=== PATIENT | female | born 1995 | race Caucasian/White ===

== ENCOUNTER 2016-11-18 14:49 | Observation (INO) ==
[2016-11-18] MEDS ORDERED: 0.9 % Sodium Chloride 1,000 ML IVC ONE (16:01)
[2016-11-18] MEDS ORDERED: Ondansetron 4 MG/2 ML VIAL IVP ONE ×2 (16:01→17:04)
[2016-11-18] MEDS ORDERED: Ketorolac 15 MG/ML VIAL IVP ONE (16:04)
--- NOTE | 2016-11-18 16:25 | Emergency Department Note ---
Disposition Clinical Impression: Status post laparoscopic cholecystectomy Abdominal pain Qualifiers: Abdominal location: unspecified location Qualified Code(s): R10.9 - Unspecified abdominal pain Disposition: Admitted As Inpatient Condition: Good Time of Disposition: 20:08 Abdominal Pain HPI - General Chief Complaint: ED Abdominal Pain Stated Complaint: Pain after Gall Bladder surgery last Friday Time Seen by Provider: 11/18/16 15:38 Source: patient, family Mode of arrival: ambulatory Limitations: no limitations Nursing Notes Reviewed: Yes Vital Signs Reviewed: Yes - History of Present Illness HPI Narrative: 20-year-old female presents with abdominal pain. She is status post cholecystectomy November 12. Reports severe right upper quadrant abdominal pain worse yesterday while at rest. Radiation to the left upper quadrant and into the left shoulder. She is currently only taking Ibuprofen for pain as Oxycodone makes her very drowsy. Denies any trauma or injury to the area. Dr. Kim is her surgeon who she contacted this morning he was instructed to come to the ED for further evaluation. She reports nausea with episode of vomiting. Denies any chest pain, shortness breath, lightheadedness, fever, cough or recent illness. Denies any urinary complaints. Denies any diarrhea, bloody stool or blacked tarry stools. She has IUD that was recently placed. Pt Subjective Complaint: abdominal pain Pain Scale: 9 - Related Data Home Medications Medication Instructions Recorded Confirmed Citalopram Hydrobromide [Celexa] 40 mg PO HS 11/12/16 11/18/16 Levonorgestrel [Mirena] 1 each IY ONCE 11/12/16 11/18/16 Ibuprofen [Motrin] 600 mg PO Q8H PRN 11/18/16 11/18/16 Allergies Allergy/AdvReac Type Severity Reaction Status Date / Time No Known Allergies Allergy Verified 11/12/16 14:22 All systems ED: reviewed and negative except as stated. Constitutional: Denies: fever, chills Cardiovascular: Denies: chest pain Respiratory: Denies: cough, dyspnea Gastrointestinal: Reports: abdominal pain, nausea, vomiting. Denies: diarrhea Genitourinary: Denies: urgency, dysuria, abnormal menses Musculoskeletal: Denies: back pain, neck pain Integumentary: Denies: rash, abrasion, lesions Neurological: Denies: headache, weakness Abdominal Pain PMH - Past Medical History Medical history: Reports: no medical history Female Surgical History: Reports: cholecystectomy Psychiatric history: Reports: anxiety, depression - Social History Smoking status: Never smoker Alcohol use: Reports: none Drug use: Reports: none Physical Exam - General Limitations: no limitations General appearance: alert, in no apparent distress, obese - Head Head exam: atraumatic, normocephalic, normal inspection - Eye Eye exam: Present: normal appearance, PERRL, EOMI, scleral icterus (mild) - ENT ENT exam: normal exam, normal oropharynx, mucous membranes moist - Neck Neck exam: Present: normal inspection, full ROM, trachea midline - Chest Chest inspection: Present: normal inspection, symmetric chest wall rise - Respiratory Respiratory exam: Present: normal lung sounds bilaterally. Absent: respiratory distress, wheezes - Cardiovascular Cardiovascular exam: Present: regular rate, normal rhythm, normal heart sounds - Abdominal Exam Abdominal exam: Present: soft, tenderness, normal bowel sounds, Cantu's sign. Absent: distention, guarding, rebound, rigidity Abdominal tenderness: Present: RUQ, LUQ - Extremities Exam Extremities exam: Present: normal inspection, full ROM, normal capillary refill. Absent: tenderness, pedal edema, calf tenderness - Back Exam Back exam: Present: normal inspection, full ROM, CVA tenderness (R). Absent: tenderness, CVA tenderness (L) - Neurological Exam Neurological exam: Present: alert, oriented X3 - Psychiatric Psychiatric exam: Present: normal affect, normal mood - Skin Skin exam: Present: warm, dry, intact, pallor, other (mildly jaundiced) Course Course Narrative: 20-year-old female status post cholecystectomy presents with pain. Patients afebrile. She has some mild sclera icterus some jaundice. She is tender to the right upper quadrant. Concern for possible bile leak or stone or post- surgical pain. Will give her toradol for pain. Will check CBC, electrolytes, renal function, LFTs. If labs are abnormal will follow up with imaging. - Reevaluation(s) Reevaluation #1: Re-examination of the abdomen, remain soft but tenderness in the right upper quadrant. Not a surgical abdomen at this time. She has a mild leukocytosis 12.1. Bilirubin is elevated 4.8. Concern for possible bile leak or common bile duct stone. Right upper quadrant abdominal ultrasound ordered. Will order morphine for pain. Patient is in agreement with this plan. Anticipate admission and a consult to surgery. Time: 17:04 Reevaluation #2: US reveals fluid in the RUQ. Will consult surgery for admission. Patient's pain controlled at this time. Gallbladder Ultrasound 11/18/16 16:57 IMPRESSION: Status post cholecystectomy Fluid in the right upper quadrant is noted may represent a small amount of ascites, however a developing focal fluid collection should be considered as well. No stone. D/ / James De Guzman / James De Guzman Interpreting Provider: James De Guzman - Consultations Consultation #1: Spoke with Dr. Villanueva, concern for suspected bile leak given radiology report. Ok to accept to surgical services. No further orders at this time. Vital Signs Temperature 98.8 F 11/18/16 15:14 Pulse Rate 119 11/18/16 15:14 Respiratory Rate 16 11/18/16 15:14 Blood Pressure 123/82 11/18/16 15:14 O2 Sat by Pulse Oximetry 96 11/18/16 15:14 Temperature 100.5 F H 11/18/16 20:12 Pulse Rate 100 11/18/16 20:12 Respiratory Rate 14 11/18/16 20:12 Blood Pressure 125/72 11/18/16 20:12 O2 Sat by Pulse Oximetry 97 11/18/16 20:12 Oxygen Delivery Oxygen Delivery Room Air Abdominal Pain - Medical Records Medical records reviewed: Yes I reviewed the patient's medical records. - Lab Data Lab results reviewed: Yes I reviewed the patient's lab results. Result diagrams: 11/18/16 16:24 11/18/16 16:24 Lab Results 11/18/16 11/18/16 Range/Units 16:24 16:24 WBC 12.1 H (4.3-11.1) K/mcL RBC 4.51 (3.82-4.97) M/mcL Hgb 11.2 L (11.5-15.4) g/dL Hct 34.4 L (35.3-44.9) % MCV 76.3 L (83.0-100.0) fL MCH 24.8 L (28.0-33.3) pg MCHC 32.6 (31.6-35.5) g/dL RDW 15.5 H (11.5-14.5) % Plt Count 336 (140-400) K/mcL MPV 9.6 (9.4-12.4) fL Immature Gran % 1.6 (0-4) % Seg Neutrophils % 80.2 % Lymphocytes % 10.5 % Monocytes % 4.9 % Eosinophils % 2.6 % Basophils % 0.2 % Neutrophils # 9.7 H (1.6-8.9) K/mcL Lymphocytes # 1.3 (0.6-4.6) K/mcL Monocytes # 0.6 (0.0-1.3) K/mcL Eosinophils # 0.3 (0.0-0.6) K/mcL Basophils # 0.0 (0.0-0.2) K/mcL Sodium 137 (136-145) mEq/L Potassium 3.3 L (3.5-4.5) mEq/L Chloride 99 (98-109) mEq/L Carbon Dioxide 26 (19-29) mEq/L BUN 14 (7-20) mg/dL Creatinine 0.55 L (0.57-1.11) mg/dL Est GFR ( Amer) > 60 (> 60) Est GFR (Non-Af Amer) > 60 (> 60) BUN/Creatinine Ratio 25 (6-26) Glucose 103 H (70-99) mg/dL Calculated Osmolality 285 (280-300) Calcium 10.0 (8.6-10.8) mg/dL Total Bilirubin 4.8 H (0.2-1.2) mg/dL Direct Bilirubin 3.2 H (0.0-0.5) mg/dL Indirect Bilirubin 1.6 H (0.0-1.2) mg/dL AST 28 (5-34) Units/L ALT 22 (0-55) Units/L Alkaline Phosphatase 216 H (38-126) Units/L Serum Total Protein 7.9 (6.0-8.3) g/dL Albumin 2.8 L (3.5-5.0) g/dL Globulin 5.1 H (2.4-3.5) g/dL Albumin/Globulin Ratio 0.5 L (1.1-2.2) Lipase 24 (8-78) Units/L - Radiology Data Radiology results reviewed: Yes I reviewed the patient's radiology results. Gallbladder Ultrasound 11/18/16 16:57 IMPRESSION: Status post cholecystectomy Fluid in the right upper quadrant is noted may represent a small amount of ascites, however a developing focal fluid collection should be considered as well. No stone. D/ / James De Guzman / James De Guzman Interpreting Provider: James De Guzman Attestation Statement - Attestation Attestation: I examined this patient and my medical decision-making was reviewed with the Resident Physician. I agree with the documented findings, disposition and treatment plan as described except to the extent set forth below. Worsening pain 6 days status post cholecystectomy. Elevated total and direct bilirubin as well as alkaline phosphatase and white count. Fluid in the right upper quadrant. Clinical picture suspects bile leak. Nuclear medicine study ordered after consultation with surgery. They have accepted the patient for admission.
[2016-11-18 16:36] LABS: Basophils % 0.2 %; Eosinophils # 0.3 K/mcL (0.0-0.6); Eosinophils % 2.6 %; Hematocrit 34.4 % (35.3-44.9); Hemoglobin 11.2 g/dL (11.5-15.4); Immature Granulocytes % 1.6 % (0-4); Lymphocytes # 1.3 K/mcL (0.6-4.6); Lymphocytes % 10.5 %; Mean Corpuscular HGB Conc 32.6 g/dL (31.6-35.5); Mean Corpuscular Hemoglobin 24.8 pg (28.0-33.3); Mean Corpuscular Volume 76.3 fL (83.0-100.0); Mean Platelet Volume 9.6 fL (9.4-12.4); Monocytes # 0.6 K/mcL (0.0-1.3); Monocytes % 4.9 %; Neutrophils # 9.7 K/mcL (1.6-8.9); Platelet Count 336 K/mcL (140-400); Red Blood Count 4.51 M/mcL (3.82-4.97); Red Cell Distribution Width 15.5 % (11.5-14.5); Segmented Neutrophils % 80.2 %
[2016-11-18 16:52] LABS: Alanine Aminotransferase 22 Units/L (0-55); Albumin 2.8 g/dL (3.5-5.0); Albumin/Globulin Ratio 0.5 (1.1-2.2); Alkaline Phosphatase 216 Units/L (38-126); Aspartate Amino Transferase 28 Units/L (5-34); BUN/Creatinine Ratio 25 (6-26); Bilirubin,Direct 3.2 mg/dL (0.0-0.5); Bilirubin,Indirect 1.6 mg/dL (0.0-1.2); Blood Urea Nitrogen 14 mg/dL (7-20); Carbon Dioxide 26 mEq/L (19-29); Chloride 99 mEq/L (98-109); Globulin 5.1 g/dL (2.4-3.5); Glucose 103 mg/dL (70-99); Lipase 24 Units/L (8-78); Osmolality,Calculated 285 (280-300); Potassium 3.3 mEq/L (3.5-4.5); Sodium 137 mEq/L (136-145); Total Protein 7.9 g/dL (6.0-8.3); eGFR For African Americans > 60 (> 60); eGFR For Non-African Americans > 60 (> 60)
[2016-11-18 16:53] LABS: Bilirubin,Total 4.8 mg/dL (0.2-1.2)
[2016-11-18] MEDS ORDERED: *HR* Morphine 2 MG/ML SYRINGE IVP ONE (17:03)
[2016-11-18] MEDS ORDERED: Ondansetron 4 MG/2 ML VIAL IVP PRN (22:52)
[2016-11-18] MEDS: *HR* HYDROmorphone (PF) 1 MG/ML SYRINGE IVP PRN (23:34)
[2016-11-18] MEDS: cefOXitin 2,000 MG in D5% in Water (Mini-Bag+) 100 ML IVPB SCH (23:34)
[2016-11-18] MEDS: 0.9 % Sodium Chloride 1,000 ML IVC SCH (23:35)
[2016-11-19] MEDS: *HR* HYDROmorphone (PF) 1 MG/ML SYRINGE IVP PRN ×2 (04:36→11:24)
[2016-11-19 05:06] LABS: Bilirubin,Urine Moderate (Negative); Blood,Urine Moderate (Negative); Clarity,Urine Cloudy (Clear); Color,Urine Orange (Yellow); Glucose,Urine (UA) Normal (Normal); Ketones,Urine 40 mg/dL (Negative); Leukocyte Esterase,Urine Small (Negative); Nitrite,Urine Positive (Negative); Protein,Urine Trace mg/dL (Neg-Trace); Specific Gravity,Urine > 1.030 (1.010-1.025); Urobilinogen,Urine Normal (Normal)
[2016-11-19 05:09] LABS: Bacteria,Urine None Seen per hpf (None-Few); Hyaline Casts,Urine None Seen per lpf (None-Few); RBC,Urine 0-3 per hpf (0-3); Squamous Epithelial Cell,Urine Many per lpf (None-Few)
[2016-11-19 07:32] LABS: Basophils % 0.4 %; Eosinophils # 0.4 K/mcL (0.0-0.6); Eosinophils % 4.8 %; Hematocrit 29.7 % (35.3-44.9); Immature Granulocytes % 2.9 % (0-4); Lymphocytes # 1.4 K/mcL (0.6-4.6); Lymphocytes % 15.6 %; Mean Corpuscular HGB Conc 32.3 g/dL (31.6-35.5); Mean Corpuscular Hemoglobin 25.2 pg (28.0-33.3); Mean Platelet Volume 10.3 fL (9.4-12.4); Monocytes # 0.5 K/mcL (0.0-1.3); Monocytes % 5.9 %; Neutrophils # 6.4 K/mcL (1.6-8.9); Platelet Count 287 K/mcL (140-400); Red Blood Count 3.81 M/mcL (3.82-4.97); Red Cell Distribution Width 15.9 % (11.5-14.5); Segmented Neutrophils % 70.4 %
--- NOTE | 2016-11-19 07:33 | General Surg History&Physical ---
Date of Encounter: 11/19/16 Time of Encounter: 07:00 Assessment and Plan (1) Bile leak, postoperative Current Visit: Yes Status: Acute The assessment and plan as outlined above was discussed with the patient and/or family members who expressed understanding and agreement. All questions were answered. The patient has jaundice with a bilirubin of 4.8. Findings are consistent with postoperative bile leak from the cystic duct stump. Type recommended ERCP and discussed the case with her primary surgeon. History of Present Illness Chief complaint: Jaundice HPI: Ms. Castorena is a 20 year old female who underwent laparoscopic cholecystectomy last Friday. Starting on postoperative day one the patient had mild right upper quadrant pain. She also experienced nausea. The pain intensified in the last several days and she sought evaluation in the emergency department. She denies shakes chills or fever. During evaluation she underwent an ultrasound that demonstrated a mild fluid accumulation in the subhepatic space. Her liver function tests were elevated with a bilirubin of 4.8. A follow-up hepatobiliary scan was consistent with cystic duct stump leak. She also had leukocytosis. She now presents for evaluation and management of postoperative bile leak from laparoscopic cholecystectomy. Past Med Surg Social Fam HX - Past Medical History Medical history: no medical history Psychiatric history: anxiety, depression - Past Surgical History Surgical History: cholecystectomy - Social History Smoking Status: Never smoker Smokeless Tobacco Status: No Alcohol use: none Drug use: none - Family History Grandfather Living Status: Still Living Hx Family Cardiac Disorders: Yes Hx Family Endocrine Disorder: Yes Mother Living Status: Still Living Hx Family Endocrine Disorder: Yes (DM) Father Living Status: Still Living Hx Family Musculoskeletal Disorders: Yes (Thyroid) Medications and Allergies Citalopram Hydrobromide [Celexa] 40 mg PO HS 11/12/16 [History] Levonorgestrel [Mirena] 1 each IY ONCE 11/12/16 [History] Ibuprofen [Motrin] 600 mg PO Q8H PRN 11/18/16 [History] Allergies No Known Allergies Allergy (Verified 11/12/16 14:22) Review of Systems All systems PM: A 10-system review of systems was performed and is negative for pertinent findings except as documented above in the HPI. General Surgery Exam Initial Vital Signs Temp Pulse Resp BP Pulse Ox 98.8 F 119 16 123/82 96 11/18/16 15:14 11/18/16 15:14 11/18/16 15:14 11/18/16 15:14 11/18/16 15:14 - General physical appearance well developed, well nourished, moderate pain - ENT normal pinna, normal nares, normal mucosa, no hearing loss, no congestion - Neck no masses, no bruits, trachea midline, no lymphadectomy, no venous distension - Respiratory normal expansion, normal respiratory effort, clear to percussion, clear to auscultation - Cardiovascular Cardiovascular exam: Present: RRR, no murmurs/rubs/gallops - Abdomen Abdomen general surgery: Present: tender Abdominal Tenderness: Present: RUQ Hernia: Present: none - Incision Incision: Present: clean and dry - Neurologic Present: CN 2-12 grossly intact, normal coordination, normal sensation - Psychiatric Psychiatric general surgery: Present: appropriate, oriented to person, oriented to place, oriented to time, speech is normal, memory intact Results - Labs 11/18/16 16:24 11/18/16 16:24 Abnormal lab results WBC 12.1 K/mcL (4.3-11.1) H 11/18/16 16:24 Hgb 11.2 g/dL (11.5-15.4) L 11/18/16 16:24 Hct 34.4 % (35.3-44.9) L 11/18/16 16:24 MCV 76.3 fL (83.0-100.0) L 11/18/16 16:24 MCH 24.8 pg (28.0-33.3) L 11/18/16 16:24 RDW 15.5 % (11.5-14.5) H 11/18/16 16:24 Neutrophils # 9.7 K/mcL (1.6-8.9) H 11/18/16 16:24 Potassium 3.3 mEq/L (3.5-4.5) L 11/18/16 16:24 Creatinine 0.55 mg/dL (0.57-1.11) L 11/18/16 16:24 Glucose 103 mg/dL (70-99) H 11/18/16 16:24 POC Glucose 100 (58-89) H 11/19/16 05:33 Total Bilirubin 4.8 mg/dL (0.2-1.2) H 11/18/16 16:24 Direct Bilirubin 3.2 mg/dL (0.0-0.5) H 11/18/16 16:24 Indirect Bilirubin 1.6 mg/dL (0.0-1.2) H 11/18/16 16:24 Alkaline Phosphatase 216 Units/L (38-126) H 11/18/16 16:24 Albumin 2.8 g/dL (3.5-5.0) L 11/18/16 16:24 Globulin 5.1 g/dL (2.4-3.5) H 11/18/16 16:24 Albumin/Globulin Ratio 0.5 (1.1-2.2) L 11/18/16 16:24 Urine Color [place] (Yellow) A 11/19/16 04:57 Urine Clarity Cloudy (Clear) A 11/19/16 04:57 Ur Specific [place] > 1.030 (1.010-1.025) H 11/19/16 04:57 Urine Ketones 40 mg/dL (Negative) H 11/19/16 04:57 Urine Blood Moderate (Negative) H 11/19/16 04:57 Urine Nitrite Positive (Negative) A 11/19/16 04:57 Urine Bilirubin Moderate (Negative) H 11/19/16 04:57 Ur Leukocyte Esterase Small (Negative) H 11/19/16 04:57 Urine Microscopic WBC 5-15 per hpf (0-3) H 11/19/16 04:57 Ur Squamous Epith Cells Many per lpf (None-Few) H 11/19/16 04:57 Ur Culture Indicated? YES (NO) A 11/19/16 04:57 All other labs normal. - Imaging US - abdomen: image reviewed (I personally reviewed the ultrasound and this demonstrates mild fluid accumulation below the liver.) Additional studies: Hepatobiliary scan is consistent with postoperative bile leak likely from the cystic duct stump
[2016-11-19 07:35] LABS: Hemoglobin 9.6 g/dL (11.5-15.4)
[2016-11-19 07:41] LABS: Alanine Aminotransferase 16 Units/L (0-55); Albumin 2.3 g/dL (3.5-5.0); Albumin/Globulin Ratio 0.5 (1.1-2.2); Alkaline Phosphatase 181 Units/L (38-126); Aspartate Amino Transferase 21 Units/L (5-34); BUN/Creatinine Ratio 23 (6-26); Bilirubin,Direct 2.4 mg/dL (0.0-0.5); Bilirubin,Total 3.4 mg/dL (0.2-1.2); Blood Urea Nitrogen 13 mg/dL (7-20); Calcium 8.9 mg/dL (8.6-10.8); Carbon Dioxide 27 mEq/L (19-29); Chloride 105 mEq/L (98-109); Globulin 4.3 g/dL (2.4-3.5); Glucose 96 mg/dL (70-99); Osmolality,Calculated 288 (280-300); Potassium 3.6 mEq/L (3.5-4.5); Sodium 139 mEq/L (136-145); Total Protein 6.6 g/dL (6.0-8.3); eGFR For African Americans > 60 (> 60); eGFR For Non-African Americans > 60 (> 60)
[2016-11-19] MEDS: cefOXitin 2,000 MG in D5% in Water (Mini-Bag+) 100 ML IVPB SCH ×2 (08:03→16:49)
[2016-11-19] MEDS: 0.9 % Sodium Chloride 1,000 ML IVC SCH (11:26)
--- NOTE | 2016-11-19 11:58 | Gastroenterology Consult Note ---
<Gallo Hopson - Last Filed: 11/19/16 11:55> Date of Encounter: 11/19/16 Time of Encounter: 10:55 - Assessment and plan (1) Bile leak, postoperative Current Visit: Yes Status: Acute Assessment and plan: Pt is post-op day 7 s/p lap demian. RUQ US showed a mild fluid accumulation in the subhepatic space and HIDA was c/w bile leak from cystic duct remnant. Bilirubin elevated on admission to 4.8, this AM 3.4. Plan for ERCP today. Keep NPO. (2) Abdominal pain Current Visit: Yes Status: Acute Assessment and plan: Secondary to bile leak and s/p lap demian. Qualifiers: Abdominal location: right upper quadrant Qualified Code(s): R10.11 - Right upper quadrant pain - Time Spent With Patient Total time spent is greater than 50% in coordination of care (as documented) at patient's floor/unit and/or counseling patient: GI History of Present Illness - Data of Consult Patient: new to practice Consult date: 11/19/16 Requesting Physician: Oscar Villanueva MD - Consult Narrative Reason for consult: Bile leak History of present illness: Ms. Castorena is a 20 year old female with no significant past medical history who underwent lap demian on 11/12/[address] Kim. She began having RUQ pain and nausea on postop day one which worsened over the past several days. She presented to the ED for evaluation.RUQ US showed a mild fluid accumulation in the subhepatic space and HIDA was c/w bile leak from cystic duct remnant. Bilirubin elevated on admission to 4.8, this AM 3.4. Procedures: None NSAIDs: Ibuprofen Anticoagulation: None Past Med Surg Social Fam HX - Past Medical History Medical history: no medical history Psychiatric history: anxiety, depression - Past Surgical History Surgical History: cholecystectomy - Social History Smoking Status: Never smoker Smokeless Tobacco Status: No Alcohol use: none Drug use: none - Family History Grandfather Living Status: Still Living Hx Family Cardiac Disorders: Yes Hx Family Endocrine Disorder: Yes Mother Living Status: Still Living Hx Family Endocrine Disorder: Yes (DM) Father Living Status: Still Living Hx Family Musculoskeletal Disorders: Yes (Thyroid) - Gastrointestinal Gastrointestinal: Present: as per HPI - Constitutional Constitutional: as per HPI - EENT Eyes: as per HPI Ears: Present: as per HPI Nose, mouth and throat: Present: as per HPI - Cardiovascular Cardiovascular ROS: Present: as per HPI - Respiratory Respiratory IM: Present: as per HPI - Genitourinary Genitourinary: Absent: change in color, Urinary frequency - Neurological ROS Neurological GI: Present: as per HPI - Hematologic/Lymphatic Hematologic/Lymphatic pediatric: Present: as per HPI - Musculoskeletal Musculoskeletal ROS GI: Present: as per HPI - Integumentary Integumentary GI: Present: as per HPI - Psychiatric ROS Psychiatric GI: Present: as per HPI - Endocrine Endocrine IM: Present: as per HPI - Constitutional Vitals: Temp Pulse Resp BP Pulse Ox 98.6 F 113 15 109/68 95 11/19/16 07:28 11/19/16 07:28 11/19/16 07:28 11/19/16 07:28 11/19/16 07:28 General appearance: Present: cooperative, A&O X 3, no acute distress, answers questions appropriately - Head Head exam: Present: atraumatic, normocephalic - Eye Eye exam: Present: normal appearance, sclera anicteric - ENT ENT exam: Present: mucous membranes dry - Neck Neck exam general surgery: Present: normal inspection, trachea midline - Respiratory Respiratory exam: Present: CTAB. Absent: rales, rhonchi, wheezes - Cardiovascular Cardiovascular exam: Present: RRR, +S1, +S2 - GI/Abdominal GI/Abdominal exam: Present: soft, tenderness (RUQ ), no peritoneal signs. Absent: distended, firm, guarding Additional comments: Laparoscopic surgical scars - Rectal Rectal exam: Present: deferred - Extremities Exam Extremities exam: Present: warm - Neurological Exam Neurological exam: Present: no focal deficits - Psychiatric Psychiatric exam: Present: normal affect, normal mood - Skin Skin exam: Present: dry, intact, normal color, warm Results - Labs CBC & Chem 7: 11/19/16 06:04 11/19/16 06:04 Labs: Last Result Calcium 8.9 mg/dL (8.6-10.8) 11/19/16 06:04 Entire Visit Hgb 9.6 g/dL (11.5-15.4) L D 11/19/16 06:04 Hct 29.7 % (35.3-44.9) L 11/19/16 06:04 Total Bilirubin 3.4 mg/dL (0.2-1.2) H 11/19/16 06:04 AST 21 Units/L (5-34) 11/19/16 06:04 ALT 16 Units/L (0-55) 11/19/16 06:04 Lipase 24 Units/L (8-78) 11/18/16 16:24 Consult Discharge Plan - Plan Referrals: Tanya Oliver PROJECT MANAGEMENT [Primary Care Provider] - <Shakir Haas - Last Filed: 11/19/16 17:46> Date of Encounter: 11/19/16 Time of Encounter: 14:00 - Time Spent With Patient Total time spent is greater than 50% in coordination of care (as documented) at patient's floor/unit and/or counseling patient: GI History of Present Illness - Data of Consult Requesting Physician: Oscar Villanueva MD - Consult Narrative History of present illness: Ms. Castorena is a 20 year old female - Constitutional Vitals: Temp Pulse Resp BP Pulse Ox 99.2 F 108 14 124/82 95 11/19/16 17:05 11/19/16 17:05 11/19/16 17:05 11/19/16 17:05 11/19/16 17:05 Results - Labs CBC & Chem 7: 11/19/16 06:04 11/19/16 06:04 Labs: Last Result Calcium 8.9 mg/dL (8.6-10.8) 11/19/16 06:04 Entire Visit Hgb 9.6 g/dL (11.5-15.4) L D 11/19/16 06:04 Hct 29.7 % (35.3-44.9) L 11/19/16 06:04 Total Bilirubin 3.4 mg/dL (0.2-1.2) H 11/19/16 06:04 AST 21 Units/L (5-34) 11/19/16 06:04 ALT 16 Units/L (0-55) 11/19/16 06:04 Lipase 24 Units/L (8-78) 11/18/16 16:24 - Impressions Impressions Cath/Invasive Procedure 11/19/16 00:00 IMPRESSION: Fluoroscopy provided for ERCP procedure. Please see the intraoperative note for complete details. D/ / 11/19/2016 16:06:42 Emeterio Covarrubias MD / frank Interpreting Provider: Emeterio Covarrubias MD - Attending Attestation I examined this patient and my medical decision-making was reviewed with the MEDICAL TECHNICIANS/PA/Advanced Practice Nurse/Resident Physician. I agree with the documented findings, disposition and treatment plan as described except to the extent set forth below.
[2016-11-19] MEDS ORDERED: *HR* Midazolam HCl 5 MG/5 ML VIAL IVP ONE (13:36)
[2016-11-19] MEDS ORDERED: *HR* FentaNYL (PF) 100 MCG/2 ML VIAL ONE ×2 (13:36→15:09)
[2016-11-19] MEDS ORDERED: *HR* Propofol 200 MG/20 ML VIAL IVP ONE (13:37)
[2016-11-19] MEDS ORDERED: Lidocaine -MPF 2% 5 ML VIAL INFILT ONE (13:37)
[2016-11-19] MEDS ORDERED: *HR* Rocuronium Bromide 50 MG/5 ML VIAL IVC ONE (13:37)
[2016-11-19] MEDS ORDERED: Lidocaine -MPF 4% 5 ML AMPUL TP ONE (13:37)
[2016-11-19] MEDS ORDERED: *HR* Succinylcholine 200 MG/10 ML VIAL IVP ONE (13:37)
[2016-11-19] MEDS ORDERED: Indomethacin 50 MG SUPP.RECT RC ONE ×2 (14:11→14:53)
--- NOTE | 2016-11-19 14:13 | Anesthesia Evaluation PreOp ---
Date of Encounter: 11/19/16 Time of Encounter: 14:11 - Past History Planned Operation: ERCP Cardiac History: Denies any Significant Hx Pulmonary History: Denies Any Significant HX [employer] History: Denies Any Significant HX Other Medical History: Other Anesthesia History: No Prior Anesthetic Complications, Past Anesthesia Test: Negative (11/19/2016) Alcohol Use: none Drug use: none Medications and Allergies Citalopram Hydrobromide [Celexa] 40 mg PO HS 11/12/16 [History] Levonorgestrel [Mirena] 1 each IY ONCE 11/12/16 [History] Ibuprofen [Motrin] 600 mg PO Q8H PRN 11/18/16 [History] Allergies No Known Allergies Allergy (Verified 11/12/16 14:22) - Meds/Allergy Pre-op Review Medications Reviewed: Yes Allergies Reviewed: Yes Beta Blockers on Current Med List: No Anesthesia Results - Labs 11/19/16 06:04 11/19/16 06:04 Anesthesia Exam Vital Signs/O2 Sat, Most Current Temp Pulse Resp BP Pulse Ox 98.3 F 119 16 124/77 96 11/19/16 14:05 11/19/16 14:05 11/19/16 14:05 11/19/16 14:05 11/19/16 14:05 Height: 5'6'' Weight: 206 lbs NPO (# of Hours): 8 Pain Scale: 0 Pain Scale Used: Numeric (1 - 10) - HEENT Pupil (Motor): EOMI Mallampati: III Teeth: Normal Oral Opening: Greater than 3 - [employer] LOC: Oriented [employer] Motor: Normal RUE, Normal LUE, Normal RLE, Normal LLE, Normal Face [employer] Sensory: Normal: RUE, LUE, RLE, LLE, Face - Cardiac Rhythm: Regular Murmur: None - Pulmonary Breath Sounds: bilateral Clear Respiratory Effort: Symmetrical Anesthesia Assess/Plan ASA Score: 2 Modified Yoal Scale for Level of Consciousness: Cooperative, oriented, and tranquil Anesthetic Plan: General Monitoring Plan: Standard Monitors Recovery Plan: PACU
[2016-11-19] MEDS ORDERED: Ringers Solution, Lactated 1,000 ML IVC SCH (14:15)
[2016-11-19] MEDS ORDERED: *HR* Promethazine 25 MG/ML VIAL IVP PRN (15:17)
[2016-11-19] MEDS ORDERED: *HR* HYDROmorphone (PF) 1 MG/ML SYRINGE IVP PRN (15:17)
--- NOTE | 2016-11-19 16:06 | Anesthesia Evaluation Post Op ---
Date of Encounter: 11/19/16 Time of Encounter: 16:05 - Vital Signs Vital Signs: Vital Signs/O2 Sat, Most Current Temp Pulse Resp BP Pulse Ox 99.1 F 117 16 130/92 96 11/19/16 16:00 11/19/16 16:00 11/19/16 16:00 11/19/16 16:00 11/19/16 16:00 - Lungs Lungs: Clear Ascult./Percussion - Airway Airway: Non-obstructed - Cardiovascular Regular Rate - Mental Status Mental Status: Alert & Oriented, Answers Appropriately - Pain Pain Scale: 0 Pain Scale used: Numeric (1 - 10) - Nausea Vomiting Nausea Vomiting: Not Present - Hydration Hydration: Ice chips, Has not voided - Discharge PostOp Status: Transfer Patient to floor
[2016-11-20] MEDS: cefOXitin 2,000 MG in D5% in Water (Mini-Bag+) 100 ML IVPB SCH ×2 (00:29→08:34)
[2016-11-20] MEDS: 0.9 % Sodium Chloride 1,000 ML IVC SCH (02:16)
[2016-11-20] MEDS: *HR* HYDROmorphone (PF) 1 MG/ML SYRINGE IVP PRN (03:14)
[2016-11-20 10:47] VITALS: BP 122/83
--- NOTE | 2016-11-20 11:57 | Discharge Summary ---
Date of Encounter: 11/20/16 Time of Encounter: 11:55 - Discharge Diagnosis (1) Bile leak, postoperative Priority: Primary Status: Resolved - Discharge Medications Prescriptions: Ibuprofen [Motrin] 800 mg PO Q8H PRN #50 tablet PRN Reason: Pain Home Medications: Citalopram Hydrobromide [Celexa] 40 mg PO HS 11/12/16 [History] Levonorgestrel [Mirena] 1 each IY ONCE 11/12/16 [History] Ibuprofen [Motrin] 800 mg PO Q8H PRN #50 tablet 11/20/16 [Rx] Allergies/Adverse Reactions: Allergies No Known Allergies Allergy (Verified 11/12/16 14:22) General Surgery Exam Initial Vital Signs Temp Pulse Resp BP Pulse Ox 98.8 F 119 16 123/82 96 11/18/16 15:14 11/18/16 15:14 11/18/16 15:14 11/18/16 15:14 11/18/16 15:14 - General physical appearance well developed, well nourished, no distress - Eyes normal ocular movement - ENT normal mucosa, atraumatic, normocephalic - Neck trachea midline - Respiratory normal respiratory effort, clear to auscultation - Cardiovascular Cardiovascular exam: Present: RRR - Abdomen Abdomen general surgery: Present: bowel sounds present, soft, tender (Expected postoperative tenderness) - Incision Incision: Present: clean and dry, intact - Integumentary Integumentary general surgery: Present: warm and dry - Neurologic Present: CN 2-12 grossly intact - Musculoskeletal Present: normal gait, normal posture - Psychiatric Psychiatric general surgery: Present: appropriate, oriented to person, oriented to place, oriented to time, speech is normal, memory intact Date of admission: 11/18/16 18:45 Primary care physician: ROSANA Herrera Consults: 11/19/16 07:13 Consult to Gastroenterology [CONS] Stat Consulting Provider: [facility] [place] Reason for Consult: Bile leak, s/p Lap CCY Time Notified: 07:14 Call Completed: Yes [facility] Anticipated date of discharge: 11/20/16 - Patient Status Disposition: Home, Self-Care Condition: Good Functional capacity at discharge: independent ambulation Overall status at discharge: patient is progressing back to baseline - Discharge Instructions Follow Up With: Tanya Oliver CNP [Primary Care Provider] - Derek Kim MD [Partnered Physician] - 11/27/16 11:30 am (Surgery follow- up) Additional Instructions: #1 may shower, no tub bath for 2 weeks #2 wash incisions with soap and water and pat dry daily #3 no lifting, pushing, pulling more than 15 pounds for the next 1 weeks #4 no driving until off narcotics for 24 hours and able to safely react in the car #5 may climb stairs - Diet and Activity Activity: increase activity as tolerated Diet: advance to your usual diet - Hospital Course Hospital course: Ms. Castorena is a 20 year old female presented to the hospital with complaints of abdominal pain with associated nausea and vomiting. She is 1 week postop from a laparoscopic cholecystectomy with Dr. Kim. She had a HIDA scan completed which shows evidence of postoperative bile leak. Dr. Haas was consulted and took the patient for ERCP. She is status post sphincterotomy and stent placement. She states that her symptoms have resolved with these interventions. She is tolerating liquid diet without nausea or vomiting. She states that her abdominal pain has significantly improved. We will advance her to a regular diet. Her vital signs are stable and she is afebrile. She is voiding and ambulating without difficulty. We will begin discharge planning to home and plan for outpatient follow-up as previously scheduled so long as the patient tolerates a regular diet. - Time Spent with Patient Total time spent providing and/or coordinating discharge services: Less than 30 minutes Labs on day of discharge: Labs from last 24 hours 11/20/16 11/19/16 11/19/16 05:11 17:12 12:04 POC Glucose 121 H 148 H 97 H - Impressions ITS Impressions Cath/Invasive Procedure 11/19/16 00:00 IMPRESSION: Fluoroscopy provided for ERCP procedure. Please see the intraoperative note for complete details. D/ / 11/19/2016 16:06:42 Emeterio Covarrubias MD / [email or web address] Interpreting Provider: Emeterio Covarrubias MD - Attending Attestation I examined this patient and my medical decision-making was reviewed with the CLOTH MENDER/PA/Advanced Practice Nurse/Resident Physician. I agree with the documented findings, disposition and treatment plan as described except to the extent set forth below.
== END 2016-11-20 15:20 | disposition home or self-care (01) ==
LOC: EMEROO 14:49 → 3ANU 14:49
PROVIDERS: ADMIT Surgery; ATTEND Surgery

== ENCOUNTER 2016-11-21 12:18 | Inpatient (IN) ==
--- NOTE | 2016-11-21 13:55 | Emergency Department Note ---
Disposition Clinical Impression: Acute abdomen, Peritonitis Leukocytosis Qualifiers: Leukocytosis type: unspecified Qualified Code(s): D72.829 - Elevated white blood cell count, unspecified Disposition: Admitted As Inpatient Condition: Fair Referrals: Tanya Oliver CNP [Primary Care Provider] - Forms: Work/School Release, ED Satisfaction Letter Time of Disposition: 16:25 Abdominal Pain HPI - General Chief Complaint: ED Abdominal Pain Stated Complaint: abd pain Time Seen by Provider: 11/21/16 13:48 Source: patient Mode of arrival: private vehicle Limitations: no limitations Nursing Notes Reviewed: Yes Vital Signs Reviewed: Yes - History of Present Illness HPI Narrative: 20-year-old female with past medical history of laproscopic cholecystectomy, anxiety. Patient had laparoscopic cholecystectomy last Friday by Dr. Kim , and was released on the same day. She came to the hospital this past Friday for abdominal pain was admitted and was found to have a file leak. Patient was in the hospital for 3 days, and had an ERCP with stent placement done by Dr. Haas on 11/19/16. Patient felt better after the procedure, and was released from the hospital yesterday. She returned back to the emergency room for chief complaint of abdominal pain that started this morning. Her pain was sharp, stabbing 10/10 pain that she describes as diffuse, but primary located in her epigastric and right upper quadrant area. The pain radiates to her mid back. There are no alleviating factors. Movement makes the pain worse. She admits to nausea with 3 episodes of vomiting. She states that the first time she had vomiting, it was green in color, and her subsequent two episodes were clear in color. She admits to having some blood in her bowel movements. She denies fever, chills. She denies chest pain. Pt Subjective Complaint: abdominal pain Consistency: constant, Worsening Location: RUQ, epigastric Pain Severity: severe Pain Scale: 10 Quality: stabbing, sharp Radiation: back Improves with: nothing Worsens with: vomiting Context: recent surgery/procedure Treatments prior to arrival: none - Related Data Home Medications Medication Instructions Recorded Confirmed Citalopram Hydrobromide [Celexa] 40 mg PO HS 11/12/16 11/21/16 Levonorgestrel [Mirena] 1 each IY ONCE 11/12/16 11/21/16 Previous Rx's Medication Instructions Recorded Ibuprofen [Motrin] 800 mg PO Q8H PRN #50 tablet 11/20/16 Allergies Allergy/AdvReac Type Severity Reaction Status Date / Time No Known Allergies Allergy Verified 11/12/16 14:22 All systems ED: reviewed and negative except as stated. Abdominal Pain PMH - Past Medical History Medical history: Reports: no medical history Female Surgical History: Reports: cholecystectomy Psychiatric history: Reports: anxiety, depression - Social History Smoking status: Never smoker Alcohol use: Reports: none Drug use: Reports: none Physical Exam - General Limitations: no limitations General appearance: alert, in distress - Head Head exam: atraumatic, normocephalic - Eye Eye exam: Present: normal appearance - Neck Neck exam: Present: normal inspection, trachea midline - Chest Chest inspection: Present: normal inspection - Respiratory Respiratory exam: Present: normal lung sounds bilaterally - Cardiovascular Cardiovascular exam: Present: tachycardia - Abdominal Exam Abdominal exam: Present: soft, tenderness, guarding, diminished bowel sounds, other (patient has signs of peritoneal pain upon exam. ) Abdominal tenderness: Present: RUQ, epigastrium, severe - Extremities Exam Extremities exam: Present: normal inspection - Back Exam Back exam: Present: normal inspection - Neurological Exam Neurological exam: Present: alert, oriented X3 - Psychiatric Psychiatric exam: Present: agitated - Skin Skin exam: Present: warm, dry, intact Course Vital Signs Temperature 98.2 F 11/21/16 12:23 Pulse Rate 138 11/21/16 12:23 Respiratory Rate 18 11/21/16 12:23 Blood Pressure 116/74 11/21/16 12:23 O2 Sat by Pulse Oximetry 96 11/21/16 12:23 Temperature 99 F 11/21/16 15:20 Pulse Rate 125 11/21/16 15:20 Respiratory Rate 22 11/21/16 15:20 Blood Pressure 126/84 11/21/16 15:20 O2 Sat by Pulse Oximetry 98 11/21/16 15:20 Oxygen Delivery Oxygen Delivery Room Air Abdominal Pain - MDM Narrative Medical decision making narrative: CBC showed significant leukocytosis with WBC of 18, BMP unremarkable, lactate normal, LFTs normal, Amylase/lipase normal. Spoke with Dr. Kim, who recommended CT abdomen/pelvis with IV and oral contrast, however, patient could not tolerate oral contrast, so only IV contrast was used, Dr. Kim made aware. CT abdomen/pelvis showed significant amount of free fluid in the abdomen , pneumobilia, large amount of ascites. General surgery is aware, they are coming down to ED to do paracentesis. Patient will be admitted under general surgery service. - Medical Records Medical records reviewed: Yes I reviewed the patient's medical records. - Lab Data Lab results reviewed: Yes I reviewed the patient's lab results. Result diagrams: 11/21/16 14:20 11/21/16 14:20 Lab Results 11/21/16 11/21/16 11/21/16 Range/Units 14:20 14:20 14:20 WBC 18.6 H D (4.3-11.1) K/mcL RBC 4.37 (3.82-4.97) M/mcL Hgb 11.0 L (11.5-15.4) g/dL Hct 34.0 L (35.3-44.9) % MCV 77.8 L (83.0-100.0) fL MCH 25.2 L (28.0-33.3) pg MCHC 32.4 (31.6-35.5) g/dL RDW 15.9 H (11.5-14.5) % Plt Count 400 (140-400) K/mcL MPV 9.5 (9.4-12.4) fL Immature Gran % 1.1 (0-4) % Seg Neutrophils % 89.6 % Lymphocytes % 5.4 % Monocytes % 3.1 % Eosinophils % 0.7 % Basophils % 0.1 % Neutrophils # 16.7 H (1.6-8.9) K/mcL Lymphocytes # 1.0 (0.6-4.6) K/mcL Monocytes # 0.6 (0.0-1.3) K/mcL Eosinophils # 0.1 (0.0-0.6) K/mcL Basophils # 0.0 (0.0-0.2) K/mcL Sodium 138 (136-145) mEq/L Potassium 3.7 (3.5-4.5) mEq/L Chloride 105 (98-109) mEq/L Carbon Dioxide 21 (19-29) mEq/L BUN 14 (7-20) mg/dL Creatinine 0.60 (0.57-1.11) mg/dL Est GFR ( Amer) > 60 (> 60) Est GFR (Non-Af Amer) > 60 (> 60) BUN/Creatinine Ratio 23 (6-26) Glucose 121 H (70-99) mg/dL Calculated Osmolality 288 (280-300) Lactic Acid 1.0 (0.5-2.2) mmol/L Calcium 9.1 (8.6-10.8) mg/dL Total Bilirubin 2.3 H (0.2-1.2) mg/dL Direct Bilirubin 1.6 H (0.0-0.5) mg/dL Indirect Bilirubin 0.7 (0.0-1.2) mg/dL AST 14 (5-34) Units/L ALT 15 (0-55) Units/L Alkaline Phosphatase 191 H (38-126) Units/L Serum Total Protein 6.7 (6.0-8.3) g/dL Albumin 2.3 L (3.5-5.0) g/dL Globulin 4.4 H (2.4-3.5) g/dL Albumin/Globulin Ratio 0.5 L (1.1-2.2) Amylase 42 (25-125) Units/L Lipase 31 (8-78) Units/L 11/21/16 Range/Units 15:54 WBC (4.3-11.1) K/mcL RBC (3.82-4.97) M/mcL Hgb (11.5-15.4) g/dL Hct (35.3-44.9) % MCV (83.0-100.0) fL MCH (28.0-33.3) pg MCHC (31.6-35.5) g/dL RDW (11.5-14.5) % Plt Count (140-400) K/mcL MPV (9.4-12.4) fL Immature Gran % (0-4) % Seg Neutrophils % % Lymphocytes % % Monocytes % % Eosinophils % % Basophils % % Neutrophils # (1.6-8.9) K/mcL Lymphocytes # (0.6-4.6) K/mcL Monocytes # (0.0-1.3) K/mcL Eosinophils # (0.0-0.6) K/mcL Basophils # (0.0-0.2) K/mcL Sodium (136-145) mEq/L Potassium (3.5-4.5) mEq/L Chloride (98-109) mEq/L Carbon Dioxide (19-29) mEq/L BUN (7-20) mg/dL Creatinine (0.57-1.11) mg/dL Est GFR ( Amer) (> 60) Est GFR (Non-Af Amer) (> 60) BUN/Creatinine Ratio (6-26) Glucose (70-99) mg/dL Calculated Osmolality (280-300) Lactic Acid 0.9 (0.5-2.2) mmol/L Calcium (8.6-10.8) mg/dL Total Bilirubin (0.2-1.2) mg/dL Direct Bilirubin (0.0-0.5) mg/dL Indirect Bilirubin (0.0-1.2) mg/dL AST (5-34) Units/L ALT (0-55) Units/L Alkaline Phosphatase (38-126) Units/L Serum Total Protein (6.0-8.3) g/dL Albumin (3.5-5.0) g/dL Globulin (2.4-3.5) g/dL Albumin/Globulin Ratio (1.1-2.2) Amylase (25-125) Units/L Lipase (8-78) Units/L
[2016-11-21] MEDS ORDERED: *HR* Morphine 2 MG/ML SYRINGE IVP ONE (14:04)
[2016-11-21] MEDS ORDERED: 0.9 % Sodium Chloride 1,000 ML IVC ONE ×2 (14:04→15:21)
[2016-11-21] MEDS ORDERED: Ondansetron 4 MG/2 ML VIAL IVP ONE (14:04)
[2016-11-21 14:30] LABS: Basophils % 0.1 %; Eosinophils # 0.1 K/mcL (0.0-0.6); Eosinophils % 0.7 %; Immature Granulocytes % 1.1 % (0-4); Lymphocytes % 5.4 %; Mean Corpuscular HGB Conc 32.4 g/dL (31.6-35.5); Mean Corpuscular Hemoglobin 25.2 pg (28.0-33.3); Mean Corpuscular Volume 77.8 fL (83.0-100.0); Mean Platelet Volume 9.5 fL (9.4-12.4); Monocytes # 0.6 K/mcL (0.0-1.3); Monocytes % 3.1 %; Platelet Count 400 K/mcL (140-400); Red Blood Count 4.37 M/mcL (3.82-4.97); Red Cell Distribution Width 15.9 % (11.5-14.5); Segmented Neutrophils % 89.6 %
[2016-11-21 14:35] LABS: Neutrophils # 16.7 K/mcL (1.6-8.9)
[2016-11-21 14:50] LABS: Alanine Aminotransferase 15 Units/L (0-55); Albumin 2.3 g/dL (3.5-5.0); Albumin/Globulin Ratio 0.5 (1.1-2.2); Alkaline Phosphatase 191 Units/L (38-126); Amylase 42 Units/L (25-125); Aspartate Amino Transferase 14 Units/L (5-34); BUN/Creatinine Ratio 23 (6-26); Bilirubin,Direct 1.6 mg/dL (0.0-0.5); Bilirubin,Indirect 0.7 mg/dL (0.0-1.2); Bilirubin,Total 2.3 mg/dL (0.2-1.2); Blood Urea Nitrogen 14 mg/dL (7-20); Calcium 9.1 mg/dL (8.6-10.8); Carbon Dioxide 21 mEq/L (19-29); Chloride 105 mEq/L (98-109); Globulin 4.4 g/dL (2.4-3.5); Glucose 121 mg/dL (70-99); Lipase 31 Units/L (8-78); Osmolality,Calculated 288 (280-300); Potassium 3.7 mEq/L (3.5-4.5); Sodium 138 mEq/L (136-145); Total Protein 6.7 g/dL (6.0-8.3); eGFR For African Americans > 60 (> 60); eGFR For Non-African Americans > 60 (> 60)
[2016-11-21] MEDS ORDERED: *HR* HYDROmorphone (PF) 1 MG/ML SYRINGE IVP ONE ×2 (14:50→16:35)
[2016-11-21] MEDS ORDERED: *HR* HYDROmorphone (PF) 1 MG/ML SYRINGE ONE (14:51)
--- NOTE | 2016-11-21 15:16 | Emergency Department Note ---
Disposition Clinical Impression: Acute abdomen, Peritonitis Leukocytosis Qualifiers: Leukocytosis type: unspecified Qualified Code(s): D72.829 - Elevated white blood cell count, unspecified Disposition: Admitted As Inpatient Condition: Fair General Adult HPI - General Chief complaint: ED Abdominal Pain Stated complaint: abd pain Time Seen by Provider: 11/21/16 13:48 Source: patient Mode of arrival: private vehicle Limitations: no limitations - History of Present Illness Pain Scale: 10 - Related Data Home Medications Medication Instructions Recorded Confirmed Citalopram Hydrobromide [Celexa] 40 mg PO HS 11/12/16 11/21/16 Levonorgestrel [Mirena] 1 each IY ONCE 11/12/16 11/21/16 Previous Rx's Medication Instructions Recorded Ibuprofen [Motrin] 800 mg PO Q8H PRN #50 tablet 11/20/16 Allergies Allergy/AdvReac Type Severity Reaction Status Date / Time No Known Allergies Allergy Verified 11/12/16 14:22 Past Medical History - Past Medical History Medical history: Reports: no medical history Surgical history: Reports: cholecystectomy Psychiatric history: Reports: anxiety, depression - Social History Smoking Status: Never smoker Smokeless Tobacco Status: No Alcohol use: Reports: none Drug use: Reports: none Physical Exam - General Limitations: no limitations General appearance: alert, in distress Course Vital Signs Temperature 98.2 F 11/21/16 12:23 Pulse Rate 138 11/21/16 12:23 Respiratory Rate 18 11/21/16 12:23 Blood Pressure 116/74 11/21/16 12:23 O2 Sat by Pulse Oximetry 96 11/21/16 12:23 Temperature 98.3 F 11/21/16 19:41 Pulse Rate 126 11/21/16 19:41 Respiratory Rate 14 11/21/16 19:41 Blood Pressure 100/65 11/21/16 19:41 O2 Sat by Pulse Oximetry 95 11/21/16 19:41 Oxygen Delivery Oxygen Delivery Room Air Medical Decision Making - MDM Narrative Medical decision making narrative: I examined this patient and my medical decision-making was reviewed with the VEHICLE CONTROLS ENGINEER/PA/Advanced Practice Nurse/Resident Physician. I agree with the documented findings, disposition and treatment plan as described except to the extent set forth below. I did see and speak with and examine the patient and she does have generalized abdominal pain consistent with an acute abdomen. I did review the lab results. He did discuss the case in coronary care with the surgeon. CT scan is pending. Patient did receive 2 doses of intravenous pain medication. 1516 - Lab Data Result diagrams: 11/21/16 14:20 11/21/16 14:20 Lab Results 11/21/16 11/21/16 11/21/16 Range/Units 14:20 14:20 14:20 WBC 18.6 H D (4.3-11.1) K/mcL RBC 4.37 (3.82-4.97) M/mcL Hgb 11.0 L (11.5-15.4) g/dL Hct 34.0 L (35.3-44.9) % MCV 77.8 L (83.0-100.0) fL MCH 25.2 L (28.0-33.3) pg MCHC 32.4 (31.6-35.5) g/dL RDW 15.9 H (11.5-14.5) % Plt Count 400 (140-400) K/mcL MPV 9.5 (9.4-12.4) fL Immature Gran % 1.1 (0-4) % Seg Neutrophils % 89.6 % Lymphocytes % 5.4 % Monocytes % 3.1 % Eosinophils % 0.7 % Basophils % 0.1 % Neutrophils # 16.7 H (1.6-8.9) K/mcL Lymphocytes # 1.0 (0.6-4.6) K/mcL Monocytes # 0.6 (0.0-1.3) K/mcL Eosinophils # 0.1 (0.0-0.6) K/mcL Basophils # 0.0 (0.0-0.2) K/mcL Sodium 138 (136-145) mEq/L Potassium 3.7 (3.5-4.5) mEq/L Chloride 105 (98-109) mEq/L Carbon Dioxide 21 (19-29) mEq/L BUN 14 (7-20) mg/dL Creatinine 0.60 (0.57-1.11) mg/dL Est GFR ( Amer) > 60 (> 60) Est GFR (Non-Af Amer) > 60 (> 60) BUN/Creatinine Ratio 23 (6-26) Glucose 121 H (70-99) mg/dL Calculated Osmolality 288 (280-300) Lactic Acid 1.0 (0.5-2.2) mmol/L Calcium 9.1 (8.6-10.8) mg/dL Total Bilirubin 2.3 H (0.2-1.2) mg/dL Direct Bilirubin 1.6 H (0.0-0.5) mg/dL Indirect Bilirubin 0.7 (0.0-1.2) mg/dL AST 14 (5-34) Units/L ALT 15 (0-55) Units/L Alkaline Phosphatase 191 H (38-126) Units/L Serum Total Protein 6.7 (6.0-8.3) g/dL Albumin 2.3 L (3.5-5.0) g/dL Globulin 4.4 H (2.4-3.5) g/dL Albumin/Globulin Ratio 0.5 L (1.1-2.2) Amylase 42 (25-125) Units/L Lipase 31 (8-78) Units/L // Range/Units 15:54 WBC (4.3-11.1) K/mcL RBC (3.82-4.97) M/mcL Hgb (11.5-15.4) g/dL Hct (35.3-44.9) % MCV (83.0-100.0) fL MCH (28.0-33.3) pg MCHC (31.6-35.5) g/dL RDW (11.5-14.5) % Plt Count (140-400) K/mcL MPV (9.4-12.4) fL Immature Gran % (0-4) % Seg Neutrophils % % Lymphocytes % % Monocytes % % Eosinophils % % Basophils % % Neutrophils # (1.6-8.9) K/mcL Lymphocytes # (0.6-4.6) K/mcL Monocytes # (0.0-1.3) K/mcL Eosinophils # (0.0-0.6) K/mcL Basophils # (0.0-0.2) K/mcL Sodium (136-145) mEq/L Potassium (3.5-4.5) mEq/L Chloride (98-109) mEq/L Carbon Dioxide (19-29) mEq/L BUN (7-20) mg/dL Creatinine (0.57-1.11) mg/dL Est GFR ( Amer) (> 60) Est GFR (Non-Af Amer) (> 60) BUN/Creatinine Ratio (6-26) Glucose (70-99) mg/dL Calculated Osmolality (280-300) Lactic Acid 0.9 (0.5-2.2) mmol/L Calcium (8.6-10.8) mg/dL Total Bilirubin (0.2-1.2) mg/dL Direct Bilirubin (0.0-0.5) mg/dL Indirect Bilirubin (0.0-1.2) mg/dL AST (5-34) Units/L ALT (0-55) Units/L Alkaline Phosphatase (38-126) Units/L Serum Total Protein (6.0-8.3) g/dL Albumin (3.5-5.0) g/dL Globulin (2.4-3.5) g/dL Albumin/Globulin Ratio (1.1-2.2) Amylase (25-125) Units/L Lipase (8-78) Units/L
--- NOTE | 2016-11-21 15:43 | General Surg History&Physical ---
<Padmini Huynh - Last Filed: 11/21/16 15:39> Date of Encounter: 11/21/16 Time of Encounter: 15:15 Assessment and Plan (1) Bile peritonitis Current Visit: Yes Status: Acute The assessment and plan as outlined above was discussed with the patient and/or family members who expressed understanding and agreement. All questions were answered. NPO Paracentesis to be complete per Dr. Kim IV fluids IV antibiotics- Mefoxin Supportive care/pain control Serial abdominal exams IS every 1 hour while awake Repeat am labs (2) Bile leak, postoperative Current Visit: No Status: Acute The assessment and plan as outlined above was discussed with the patient and/or family members who expressed understanding and agreement. All questions were answered. (3) Status post laparoscopic cholecystectomy Current Visit: No Status: Acute The assessment and plan as outlined above was discussed with the patient and/or family members who expressed understanding and agreement. All questions were answered. (4) DVT prophylaxis Current Visit: Yes Status: Acute The assessment and plan as outlined above was discussed with the patient and/or family members who expressed understanding and agreement. All questions were answered. EPCDs to bilateral lower extremities for DVT prophylaxis Heparin 5,000 units SQ twice daily for DVT prophylaxis History of Present Illness Chief complaint: Abdominal pain with associated nausea/vomiting HPI: Ms. Castorena is a 20 year old female who is recently s/p cholecystectomy with Dr. Kim on 11/12/16. She experienced a post-operative bile leak and was admitted to the hospital earlier this week. She is s/p ERCP with sphincterotomy and stent placement with Dr. Haas on 11/19/16. She initially felt much better after stent placement. Her WBC count normalized and total bilirubin levels were trending toward normal. She was discharged to home on 11/20/16. She states that she was doing well when she went to bed last night and woke up suddenly at 0200 this morning. She states that her abdominal pain had returned and was more severe than she has experienced earlier this week. She states that her pain progressed and she was unable to get relief with medication. She experienced nausea and vomiting. Admits to bilious vomiting. Denies any hematemesis or coffee ground emesis. Denies any fevers. Admit to chills and feeling diaphoretic. Admits to difficulty taking a deep breath due to significant abdominal pain. Denies any chest pains. Denies any difficulty with urination. CT shows evidence of significant fluid within the intra-abdominal space. The patient will be admitted to the hospital for further treatment. Past Med Surg Social Fam HX - Past Medical History Source: patient Medical history: no medical history Psychiatric history: anxiety, depression - Past Surgical History Surgical History: cholecystectomy, other (ERCP 11/19/16) - Social History Smoking Status: Never smoker Smokeless Tobacco Status: No Alcohol use: none Drug use: none Current living situation: Home - Independent Activity Level: Independent ambulation - Family History Grandfather Living Status: Still Living Hx Family Cardiac Disorders: Yes Hx Family Endocrine Disorder: Yes Mother Living Status: Still Living Hx Family Endocrine Disorder: Yes (DM) Father Living Status: Still Living Medications and Allergies Citalopram Hydrobromide [Celexa] 40 mg PO HS 11/12/16 [History] Levonorgestrel [Mirena] 1 each IY ONCE 11/12/16 [History] Ibuprofen [Motrin] 800 mg PO Q8H PRN #50 tablet 11/20/16 [Rx] Allergies No Known Allergies Allergy (Verified 11/12/16 14:22) Review of Systems All systems PM: reviewed and no additional remarkable complaints except as stated (in the HPI) All systems PM: A 10-system review of systems was performed and is negative for pertinent findings except as documented above in the HPI. General Surgery Exam Initial Vital Signs Temp Pulse Resp BP Pulse Ox 98.2 F 138 18 116/74 96 11/21/16 12:23 11/21/16 12:23 11/21/16 12:23 11/21/16 12:23 11/21/16 12:23 - General physical appearance well developed, well nourished, severe distress, severe pain - Eyes PERRL, normal ocular movement - ENT normal mucosa, atraumatic, normocephalic - Neck trachea midline - Respiratory clear to auscultation, other (tachypnic, diminished bibasilar bases) - Cardiovascular Cardiovascular exam: Present: tachycardia - Abdomen Abdomen general surgery: Present: soft, distended, tender, peritoneal Abdominal Tenderness: Present: diffusely - Incision Incision: Present: clean and dry, intact - Integumentary Integumentary general surgery: Present: warm and dry - Neurologic Present: CN 2-12 grossly intact - Psychiatric Psychiatric general surgery: Present: A&Ox3 Results - Labs 11/21/16 14:20 11/21/16 14:20 Abnormal lab results WBC 18.6 K/mcL (4.3-11.1) H D 11/21/16 14:20 Hgb 11.0 g/dL (11.5-15.4) L 11/21/16 14:20 Hct 34.0 % (35.3-44.9) L 11/21/16 14:20 MCV 77.8 fL (83.0-100.0) L 11/21/16 14:20 MCH 25.2 pg (28.0-33.3) L 11/21/16 14:20 RDW 15.9 % (11.5-14.5) H 11/21/16 14:20 Neutrophils # 16.7 K/mcL (1.6-8.9) H 11/21/16 14:20 Glucose 121 mg/dL (70-99) H 11/21/16 14:20 Total Bilirubin 2.3 mg/dL (0.2-1.2) H 11/21/16 14:20 Direct Bilirubin 1.6 mg/dL (0.0-0.5) H 11/21/16 14:20 Alkaline Phosphatase 191 Units/L (38-126) H 11/21/16 14:20 Albumin 2.3 g/dL (3.5-5.0) L 11/21/16 14:20 Globulin 4.4 g/dL (2.4-3.5) H 11/21/16 14:20 Albumin/Globulin Ratio 0.5 (1.1-2.2) L 11/21/16 14:20 Diabetes panel 11/21/16 Range/Units 14:20 Sodium 138 (136-145) mEq/L Potassium 3.7 (3.5-4.5) mEq/L Chloride 105 (98-109) mEq/L Carbon Dioxide 21 (19-29) mEq/L BUN 14 (7-20) mg/dL Creatinine 0.60 (0.57-1.11) mg/dL Glucose 121 H (70-99) mg/dL Calcium 9.1 (8.6-10.8) mg/dL AST 14 (5-34) Units/L ALT 15 (0-55) Units/L Alkaline Phosphatase 191 H (38-126) Units/L Albumin 2.3 L (3.5-5.0) g/dL Calcium panel 11/21/16 Range/Units 14:20 Calcium 9.1 (8.6-10.8) mg/dL Albumin 2.3 L (3.5-5.0) g/dL Pituitary panel 11/21/16 Range/Units 14:20 Sodium 138 (136-145) mEq/L Potassium 3.7 (3.5-4.5) mEq/L Chloride 105 (98-109) mEq/L Carbon Dioxide 21 (19-29) mEq/L BUN 14 (7-20) mg/dL Creatinine 0.60 (0.57-1.11) mg/dL Glucose 121 H (70-99) mg/dL Calcium 9.1 (8.6-10.8) mg/dL Adrenal panel 11/21/16 Range/Units 14:20 Sodium 138 (136-145) mEq/L Potassium 3.7 (3.5-4.5) mEq/L Chloride 105 (98-109) mEq/L Carbon Dioxide 21 (19-29) mEq/L BUN 14 (7-20) mg/dL Creatinine 0.60 (0.57-1.11) mg/dL Glucose 121 H (70-99) mg/dL Calcium 9.1 (8.6-10.8) mg/dL Total Bilirubin 2.3 H (0.2-1.2) mg/dL AST 14 (5-34) Units/L ALT 15 (0-55) Units/L Alkaline Phosphatase 191 H (38-126) Units/L Albumin 2.3 L (3.5-5.0) g/dL All other labs normal. - Imaging CT scan - abdomen: image reviewed CT scan - pelvis: image reviewed - Attending Attestation I examined this patient and my medical decision-making was reviewed with the DEL[employer]ER [employer]/PA/Advanced Practice Nurse/Resident Physician. I agree with the documented findings, disposition and treatment plan as described except to the extent set forth below. <Derek Kim - Last Filed: 11/21/16 17:36> Date of Encounter: 11/21/16 History of Present Illness HPI: Ms. Castorena is a 20 year old female Review of Systems All systems PM: A 10-system review of systems was performed and is negative for pertinent findings except as documented above in the HPI. General Surgery Exam Initial Vital Signs Temp Pulse Resp BP Pulse Ox 98.2 F 138 18 116/74 96 11/21/16 12:23 11/21/16 12:23 11/21/16 12:23 11/21/16 12:23 11/21/16 12:23 Results - Labs 11/21/16 14:20 11/21/16 14:20 Abnormal lab results WBC 18.6 K/mcL (4.3-11.1) H D 11/21/16 14:20 Hgb 11.0 g/dL (11.5-15.4) L 11/21/16 14:20 Hct 34.0 % (35.3-44.9) L 11/21/16 14:20 MCV 77.8 fL (83.0-100.0) L 11/21/16 14:20 MCH 25.2 pg (28.0-33.3) L 11/21/16 14:20 RDW 15.9 % (11.5-14.5) H 11/21/16 14:20 Neutrophils # 16.7 K/mcL (1.6-8.9) H 11/21/16 14:20 Glucose 121 mg/dL (70-99) H 11/21/16 14:20 Total Bilirubin 2.3 mg/dL (0.2-1.2) H 11/21/16 14:20 Direct Bilirubin 1.6 mg/dL (0.0-0.5) H 11/21/16 14:20 Alkaline Phosphatase 191 Units/L (38-126) H 11/21/16 14:20 Albumin 2.3 g/dL (3.5-5.0) L 11/21/16 14:20 Globulin 4.4 g/dL (2.4-3.5) H 11/21/16 14:20 Albumin/Globulin Ratio 0.5 (1.1-2.2) L 11/21/16 14:20 All other labs normal. - Attending Attestation I reviewed the assessment and examination with the practitioner present. I personally reviewed the CT scan images which shows a large fluid collection in the abdomen. Based upon the clinical findings and concern that the patient has mild peritonitis which is the cause of her pain. I will perform a paracentesis to determine the consistency of the fluid to see whether or not this succus or bile fluid. Will start IV antibiotics and IV fluids as well.
[2016-11-21] MEDS ORDERED: Lidocaine -MPF 2% 5 ML VIAL ONE (16:44)
[2016-11-21] MEDS ORDERED: Naloxone 0.4 MG/ML INJ IVP PRN (17:15)
[2016-11-21] MEDS ORDERED: Ondansetron 4 MG/2 ML VIAL IVP PRN (17:15)
--- NOTE | 2016-11-21 17:37 | Event Note ---
Date of Encounter: 11/21/16 Time of Encounter: 17:36 After properly identifying the patient the patient's right lower quadrant was prepped and draped in a normal fashion. 1% lidocaine with epinephrine was used to anesthetize the epidermal dermal subcutaneous tissue and abdominal wall fascia. An 8-[place] catheter was then introduced into the abdomen via the Seldinger technique followed by advancement of the catheter. The fluid appeared to be bilious in nature and fluid was sent for culture. Approximately 1.5 L of bilious fluid was removed from the abdomen. The catheter was then removed and the insertion site was covered with a Band-Aid.
[2016-11-21] MEDS: Ketorolac 15 MG/ML VIAL IVP SCH ×2 (20:00→23:11)
[2016-11-21] MEDS: 0.9 % Sodium Chloride 1,000 ML IVC SCH (20:09)
[2016-11-21] MEDS: *HR* Heparin 5,000 UNIT/ML VIAL SQ SCH (20:10)
[2016-11-21] MEDS: cefOXitin 2,000 MG in D5% in Water (Mini-Bag+) 100 ML IVPB SCH (20:10)
[2016-11-21 20:41] LABS: Bilirubin,Urine Moderate (Negative); Blood,Urine Large (Negative); Clarity,Urine Cloudy (Clear); Color,Urine Orange (Yellow); Glucose,Urine (UA) Normal (Normal); Ketones,Urine 15 mg/dL (Negative); Leukocyte Esterase,Urine Small (Negative); Nitrite,Urine Negative (Negative); Protein,Urine Trace mg/dL (Neg-Trace); Specific Gravity,Urine > 1.030 (1.010-1.025); Urobilinogen,Urine Normal (Normal)
[2016-11-21 20:43] LABS: Bacteria,Urine None Seen per hpf (None-Few); Hyaline Casts,Urine None Seen per lpf (None-Few); Squamous Epithelial Cell,Urine Many per lpf (None-Few)
[2016-11-21 20:51] LABS: RBC,Urine 15-30 per hpf (0-3)
[2016-11-21] MEDS: *HR* HYDROmorphone (PF) 1 MG/ML SYRINGE IVP PRN (23:53)
[2016-11-22] MEDS: cefOXitin 2,000 MG in D5% in Water (Mini-Bag+) 100 ML IVPB SCH ×3 (02:36→17:47)
[2016-11-22] MEDS: *HR* HYDROmorphone (PF) 1 MG/ML SYRINGE IVP PRN ×5 (03:36→19:36)
[2016-11-22] MEDS: Ketorolac 15 MG/ML VIAL IVP SCH ×4 (05:32→23:27)
[2016-11-22] MEDS: *HR* Heparin 5,000 UNIT/ML VIAL SQ SCH ×2 (05:33→17:49)
--- NOTE | 2016-11-22 07:25 | General Surgery Progress Note ---
Date of Encounter: 11/22/16 Time of Encounter: :23 - Assessment and Plan (1) Bile peritonitis Current Visit: Yes Status: Acute Continue with NPO for now. Await morning labs and result of MRCP to determine if there is still a leak present at the level of the cystic duct stump. May need to repeat the CT of the abdomen or order for an IR placed drainage catheter in the pelvis. Subjective Patient reports: other (Patient states that her pain is better controlled. Pain 5 out of 10 (last pain medicaiton at 330am). Mild nausea, no vomiting.) Objective Vital Signs - Last 8 Hours Temp Pulse Resp BP Pulse Ox 11/22/16 07:17 98.6 F 118 16 103/61 95 11/22/16 03:03 98.3 F 115 14 104/66 96 11/21/16 23:29 98.6 F 118 14 100/66 95 Intake and Output 11/21/16 11/21/16 11/22/16 15:59 23:59 07:59 Intake Total 100 / 100 100 / 100 Output Total 400 / 400 200 / 200 Balance -300 / -300 -100 / -100 Intake: IV Fluids 100 / 100 100 / 100 Mefoxin 2,000 MG In 100 / 100 100 / 100 Dextrose 5% (Minibag+) 100 ML 100 ML @ 200 mls/ hr IVPB Q8H [facility] Rx#: [id number] Oral 0 / 0 0 / 0 Output: Urine 400 / 400 200 / 200 Other: # Voids 1 Weight 97 kg 96.46 kg Blood Glucose* 103 96 Patient Weight 11/22/16 23:59 Weight 96.46 kg - General physical appearance well developed, well nourished, no distress - Respiratory normal expansion, normal respiratory effort - Abdomen Abdomen: Present: bowel sounds present, soft (Distended. Mild pain to palpation in the lower abdomen. No tympany.) - Labs 11/21/16 14:20 11/21/16 14:20 - VTE Documentation of Mechanical Device: Intermittent pneumatic compression device Consult Discharge Plan - Plan Referrals: Tanya Oliver, [employer] [Primary Care Provider] -
[2016-11-22] MEDS: 0.9 % Sodium Chloride 1,000 ML IVC SCH ×2 (07:35→23:28)
[2016-11-22 09:02] LABS: Basophils % 0.2 %; Eosinophils # 0.4 K/mcL (0.0-0.6); Eosinophils % 1.5 %; Hematocrit 33.5 % (35.3-44.9); Hemoglobin 10.6 g/dL (11.5-15.4); Lymphocytes # 1.5 K/mcL (0.6-4.6); Lymphocytes % 6.6 %; Mean Corpuscular HGB Conc 31.6 g/dL (31.6-35.5); Mean Platelet Volume 9.8 fL (9.4-12.4); Monocytes % 4.2 %; Neutrophils # 20.1 K/mcL (1.6-8.9); Platelet Count 442 K/mcL (140-400); Red Blood Count 4.24 M/mcL (3.82-4.97); Red Cell Distribution Width 16.1 % (11.5-14.5); Segmented Neutrophils % 85.5 %
[2016-11-22 09:19] LABS: Alanine Aminotransferase 11 Units/L (0-55); Albumin 1.8 g/dL (3.5-5.0); Albumin/Globulin Ratio 0.4 (1.1-2.2); Alkaline Phosphatase 160 Units/L (38-126); Aspartate Amino Transferase 11 Units/L (5-34); BUN/Creatinine Ratio 20 (6-26); Bilirubin,Direct 1.7 mg/dL (0.0-0.5); Bilirubin,Indirect 0.6 mg/dL (0.0-1.2); Bilirubin,Total 2.3 mg/dL (0.2-1.2); Blood Urea Nitrogen 11 mg/dL (7-20); Calcium 8.4 mg/dL (8.6-10.8); Carbon Dioxide 22 mEq/L (19-29); Chloride 107 mEq/L (98-109); Globulin 4.1 g/dL (2.4-3.5); Glucose 103 mg/dL (70-99); Osmolality,Calculated 286 (280-300); Sodium 138 mEq/L (136-145); Total Protein 5.9 g/dL (6.0-8.3); eGFR For African Americans > 60 (> 60); eGFR For Non-African Americans > 60 (> 60)
[2016-11-22] MEDS ORDERED: Acetaminophen IV 1,000 MG/100 ML INFUS..BTL IVPB ONE (11:22)
[2016-11-22] MEDS: Pantoprazole 40 MG VIAL IVP SCH (11:31)
[2016-11-22 13:58] LABS: INR 1.9; Prothrombin Time 21.4 Seconds (9.4-12.1)
[2016-11-22] MEDS ORDERED: *HR* Midazolam HCl 2 MG/2 ML VIAL IVP PRN (14:21)
[2016-11-22] MEDS ORDERED: 0.9 % Sodium Chloride 500 ML ONE (14:31)
[2016-11-22] MEDS: *HR* FentaNYL (PF) 100 MCG/2 ML VIAL IVP PRN ×2 (14:36→14:42)
--- NOTE | 2016-11-22 15:02 | IR Procedure Note ---
Date of procedure: 11/22/16 Consent Obtained: Written consent Timeout: Correct patient and procedure verified, Correct site verified, Time out performed, Skin prep completed Local anesthetic: Lidocaine 1% Indications: Biliary leak, not active Procedure Performed: Pelvic drain placement Site/Technique: RLQ access Results/Findings: 10fr drain placed into biliary collection in pelvis Estimated blood loss (cc): 1 Complications: None; Tolerated procedure well Post Procedure Treatment Plan: Monitoring in pts room
--- NOTE | 2016-11-22 16:55 | Event Note ---
Date of Encounter: 11/22/16 Time of Encounter: 16:54 Patient is status post nuclear medicine HIDA scan which shows no evidence of an active leak. CT scan catheter placement of the pigtail catheter was performed by interventional radiology for additional drainage and our nurse practitioner was able to draw of approximately 1.2 L of bilious material from the pelvis. We will continue to follow her labs in the morning and will start a regular diet today. Encouraged ambulation to help with further drainage and continue with IV pain medication as well as antibiotics. Discussed with the patient and family and they agree with the above plan.
[2016-11-23] MEDS: *HR* HYDROmorphone (PF) 1 MG/ML SYRINGE IVP PRN ×7 (01:49→23:10)
[2016-11-23] MEDS: cefOXitin 2,000 MG in D5% in Water (Mini-Bag+) 100 ML IVPB SCH (02:28)
[2016-11-23] MEDS: Ketorolac 15 MG/ML VIAL IVP SCH (05:59)
[2016-11-23] MEDS: *HR* Heparin 5,000 UNIT/ML VIAL SQ SCH (06:02)
[2016-11-23 06:20] LABS: Basophils % 0.1 %; Eosinophils # 0.3 K/mcL (0.0-0.6); Eosinophils % 1.4 %; Hematocrit 28.2 % (35.3-44.9); Lymphocytes # 1.7 K/mcL (0.6-4.6); Lymphocytes % 7.9 %; Mean Corpuscular HGB Conc 31.6 g/dL (31.6-35.5); Mean Corpuscular Hemoglobin 25.1 pg (28.0-33.3); Mean Corpuscular Volume 79.4 fL (83.0-100.0); Mean Platelet Volume 10.1 fL (9.4-12.4); Monocytes % 4.6 %; Platelet Count 360 K/mcL (140-400); Red Blood Count 3.55 M/mcL (3.82-4.97)
[2016-11-23 06:21] LABS: Hemoglobin 8.9 g/dL (11.5-15.4)
[2016-11-23 06:35] LABS: Alanine Aminotransferase 6 Units/L (0-55); Albumin/Globulin Ratio 0.4 (1.1-2.2); Alkaline Phosphatase 140 Units/L (38-126); Aspartate Amino Transferase 11 Units/L (5-34); BUN/Creatinine Ratio 16 (6-26); Bilirubin,Direct 1.1 mg/dL (0.0-0.5); Bilirubin,Indirect 0.6 mg/dL (0.0-1.2); Bilirubin,Total 1.7 mg/dL (0.2-1.2); Blood Urea Nitrogen 9 mg/dL (7-20); Carbon Dioxide 24 mEq/L (19-29); Chloride 103 mEq/L (98-109); Globulin 3.6 g/dL (2.4-3.5); Glucose 102 mg/dL (70-99); Magnesium 1.5 mg/dL (1.7-2.2); Osmolality,Calculated 277 (280-300); Phosphorous 3.3 mg/dL (2.3-4.7); Potassium 3.8 mEq/L (3.5-4.5); Sodium 134 mEq/L (136-145); Total Protein 5.1 g/dL (6.0-8.3); eGFR For African Americans > 60 (> 60); eGFR For Non-African Americans > 60 (> 60)
[2016-11-23 06:39] LABS: Albumin 1.5 g/dL (3.5-5.0)
[2016-11-23] MEDS: Pantoprazole 40 MG VIAL IVP SCH (08:35)
--- NOTE | 2016-11-23 10:00 | General Surgery Progress Note ---
Date of Encounter: 11/23/16 Time of Encounter: 10:00 - Assessment and Plan (1) UTI (urinary tract infection) Current Visit: Yes Status: Acute citrobacter uti, sensitive to zosyn, abx changed wbc decreased some today, will trend Qualifiers: Urinary tract infection type: acute cystitis Hematuria presence: with hematuria Qualified Code(s): N30.01 - Acute cystitis with hematuria (2) Abdominal pain Current Visit: No Status: Acute continue prn pain medication is improved per patient Qualifiers: Abdominal location: right upper quadrant Qualified Code(s): R10.11 - Right upper quadrant pain (3) Bile leak, postoperative Current Visit: No Status: Acute Ct scan done last night for high tacchycardia, no bowel injury with leak still a significant amount of fluid in abdomen and at gallbladder fossa discussed with patient and mother, IR to place drain at gallbladder fossa for source control continue drain in pelvis yeast has grown in peritoneal fluid cultures- added diflucan, called lab and asked for ID/sensitivities (4) Bile peritonitis Current Visit: Yes Status: Acute improved pain, only 100 cc overnight from drain (5) DVT prophylaxis Current Visit: Yes Status: Acute EPCDs, ambulate hold heparin for IR procedure (6) Leukocytosis Current Visit: Yes Status: Acute uti - citrobacter, started zosyn yeast peritoneal cultures - started diflucan, identification and sensitivities pending trend wbc Qualifiers: Leukocytosis type: unspecified Qualified Code(s): D72.829 - Elevated white blood cell count, unspecified (7) Tachycardia Current Visit: Yes Status: Acute likely secondary to pain, bile peritonitis and peritoneal infection, monitor, on tele Subjective Narrative: she feels a little better but still is having RUQ and right sided abdominal pain more than anywhere else. No nausea. had a little food and tolerated tacchycardia last evening, CT scan done shows no bowel injury, cxr this am shows no layering of contrast in pelvis Objective Vital Signs - Last 8 Hours Temp Pulse Resp BP Pulse Ox 11/23/16 05:10 99.0 F 104 16 106/63 95 Intake and Output 11/22/16 11/23/16 11/23/16 23:59 07:59 15:59 Intake Total 1220 / 1220 100 / 100 Output Total 1250 / 1250 100 / 100 Balance -30 / -30 100 / 100 -100 / -100 Intake: IV Fluids 1100 / 1100 100 / 100 0.9 % Sodium Chloride 1, 1000 / 1000 000 ML @ 100 mls/hr IVC . Q10H [facility] Rx#:[id number] Mefoxin 2,000 MG In 100 / 100 100 / 100 Dextrose 5% (Minibag+) 100 ML 100 ML @ 200 mls/ hr IVPB Q8H [facility] Rx#: [id number] Oral 120 / 120 0 / 0 Output: Urine 0 / 0 Wound Drainage 1250 / 1250 100 / 100 Right Lower Abdomen 1250 / 1250 100 / 100 Other: Meal Dinner Percent of Meal Consumed 5% # Voids 1 0 Weight 97.3 kg Patient Weight 11/23/16 23:59 Weight 97.3 kg - General physical appearance well developed, well nourished, moderate pain - Eyes PERRL, normal ocular movement - ENT normal mucosa, normocephalic - Neck Neck exam: trachea midline - Respiratory normal expansion, clear to auscultation - Cardiovascular Cardiovascular exam: Present: tachycardia, no murmurs/rubs/gallops - Abdomen Abdomen: Present: soft, tender (mildly diffusely but a little more so right sided). Absent: distended, guarding, rebound, rigid - Integumentary no rash, no growths, no abnormal pigmentation - Neurologic CN 2-12 grossly intact - Musculoskeletal normal posture - Psychiatric oriented to time, memory intact - Labs 11/23/16 05:50 11/23/16 05:50 Short CBC 11/23/16 Range/Units 05:50 WBC 21.5 H (4.3-11.1) K/mcL Hgb 8.9 L D (11.5-15.4) g/dL Hct 28.2 L (35.3-44.9) % Plt Count 360 (140-400) K/mcL Neutrophils # 18.0 H (1.6-8.9) K/mcL BMP 11/23/16 Range/Units 05:50 Sodium 134 L (136-145) mEq/L Potassium 3.8 (3.5-4.5) mEq/L Chloride 103 (98-109) mEq/L Carbon Dioxide 24 (19-29) mEq/L BUN 9 (7-20) mg/dL Creatinine 0.57 (0.57-1.11) mg/dL Glucose 102 H (70-99) mg/dL Calcium 8.0 L (8.6-10.8) mg/dL Liver Function 11/23/16 Range/Units 05:50 Total Bilirubin 1.7 H (0.2-1.2) mg/dL Direct Bilirubin 1.1 H (0.0-0.5) mg/dL AST 11 (5-34) Units/L ALT 6 (0-55) Units/L Alkaline Phosphatase 140 H (38-126) Units/L Albumin 1.5 L (3.5-5.0) g/dL Vital Signs Temp Pulse Resp BP Pulse Ox 11/23/16 05:10 99.0 F 104 16 106/63 95 11/23/16 01:27 98.7 F 125 18 115/76 98 11/22/16 23:59 99.5 F 130 18 103/65 95 11/22/16 19:52 98.6 F 125 20 111/64 94 11/22/16 16:35 99.0 F 125 18 112/68 11/22/16 15:46 98.9 F 125 18 110/68 94 11/22/16 15:07 98.6 F 124 20 123/80 94 11/22/16 14:45 128 14 112/59 95 11/22/16 14:40 126 20 102/66 96 11/22/16 12:49 99.7 F H 123 16 103/67 93 11/22/16 11:34 101.3 F H 130 16 123/81 95 Intake and Output 11/22/16 11/23/16 11/23/16 23:59 07:59 15:59 Intake Total 1220 / 1220 100 / 100 Output Total 1250 / 1250 100 / 100 Balance -30 / -30 100 / 100 -100 / -100 Intake: IV Fluids 1100 / 1100 100 / 100 0.9 % Sodium Chloride 1, 1000 / 1000 000 ML @ 100 mls/hr IVC . Q10H [facility] Rx#:[id number] Mefoxin 2,000 MG In 100 / 100 100 / 100 Dextrose 5% (Minibag+) 100 ML 100 ML @ 200 mls/ hr IVPB Q8H [facility] Rx#: [id number] Oral 120 / 120 0 / 0 Output: Urine 0 / 0 Wound Drainage 1250 / 1250 100 / 100 Right Lower Abdomen 1250 / 1250 100 / 100 Other: Meal Dinner Percent of Meal Consumed 5% # Voids 1 0 Weight 97.3 kg Patient Weight 11/23/16 23:59 Weight 97.3 kg Microbiology 11/21/16 20:30 Urine,Clean Catch Urine Culture - Final Citrobacter freundii complex 11/21/16 17:35 Ascites Fluid yeast - Imaging Abdominal x-ray: report reviewed, image reviewed CT scan - abdomen: report reviewed, image reviewed CT scan - pelvis: report reviewed, image reviewed - VTE Documentation of Mechanical Device: Intermittent pneumatic compression device Consult Discharge Plan - Plan Referrals: Tanya Oliver, [employer] [Primary Care Provider] -
[2016-11-23] MEDS: Fluconazole 200 MG/100 ML 200 MG/100 ML BAG IVPB SCH (12:02)
[2016-11-23] MEDS: 0.9 % Sodium Chloride 1,000 ML IVC SCH (12:05)
[2016-11-23] MEDS ORDERED: *HR* Midazolam HCl 2 MG/2 ML VIAL IVP PRN (12:55)
[2016-11-23] MEDS ORDERED: *HR* FentaNYL (PF) 100 MCG/2 ML VIAL IVP PRN (12:55)
[2016-11-23] MEDS ORDERED: 0.9 % Sodium Chloride 500 ML ONE (12:57)
[2016-11-23] MEDS ORDERED: *HR* FentaNYL (PF) 100 MCG/2 ML VIAL ONE (12:58)
[2016-11-23] MEDS ORDERED: *HR* Midazolam HCl 2 MG/2 ML VIAL ONE (12:58)
--- NOTE | 2016-11-23 13:27 | IR Procedure Note ---
Date of procedure: 11/23/16 Consent Obtained: Written consent Timeout: Correct patient and procedure verified, Correct site verified, Time out performed, Skin prep completed Local anesthetic: Lidocaine 1% Indications: Bile leak Procedure Performed: Exchange of pelvic biloma drain Results/Findings: Upsize to 14F, 500 ml bile removed and hooked to suction bulb Complications: None; Tolerated procedure well (As biliary scan show no bile leak and more bile removed after drain exchange will hold off placing drain in GB fossa. Recommend repeat biliary scan to see if there is leak.)
[2016-11-23] MEDS: Piperacillin/Tazobactam 3.375 GM in D5% in Water (Mini-Bag+) 100 ML IVPB SCH (17:07)
[2016-11-23] MEDS: Acetaminophen 325 MG TABLET PO PRN (20:27)
[2016-11-24] MEDS: Piperacillin/Tazobactam 3.375 GM in D5% in Water (Mini-Bag+) 100 ML IVPB SCH ×4 (00:40→23:25)
[2016-11-24] MEDS: 0.9 % Sodium Chloride 1,000 ML IVC SCH ×2 (00:54→12:04)
[2016-11-24] MEDS: *HR* HYDROmorphone (PF) 1 MG/ML SYRINGE IVP PRN ×8 (03:42→23:37)
[2016-11-24 06:16] LABS: Basophils % 0.2 %; Eosinophils # 0.3 K/mcL (0.0-0.6); Eosinophils % 1.7 %; Hematocrit 27.8 % (35.3-44.9); Hemoglobin 8.7 g/dL (11.5-15.4); Immature Granulocytes % 3.3 % (0-4); Lymphocytes # 1.4 K/mcL (0.6-4.6); Lymphocytes % 7.3 %; Mean Corpuscular HGB Conc 31.3 g/dL (31.6-35.5); Mean Corpuscular Hemoglobin 24.6 pg (28.0-33.3); Mean Corpuscular Volume 78.8 fL (83.0-100.0); Mean Platelet Volume 9.9 fL (9.4-12.4); Monocytes # 0.8 K/mcL (0.0-1.3); Monocytes % 4.3 %; Neutrophils # 15.8 K/mcL (1.6-8.9); Platelet Count 389 K/mcL (140-400); Red Blood Count 3.53 M/mcL (3.82-4.97); Red Cell Distribution Width 15.9 % (11.5-14.5); Segmented Neutrophils % 83.2 %
[2016-11-24 06:27] LABS: Alanine Aminotransferase 6 Units/L (0-55); Albumin 1.4 g/dL (3.5-5.0); Albumin/Globulin Ratio 0.4 (1.1-2.2); Alkaline Phosphatase 133 Units/L (38-126); Aspartate Amino Transferase 11 Units/L (5-34); BUN/Creatinine Ratio 10 (6-26); Bilirubin,Direct 0.8 mg/dL (0.0-0.5); Bilirubin,Indirect 0.5 mg/dL (0.0-1.2); Bilirubin,Total 1.3 mg/dL (0.2-1.2); Blood Urea Nitrogen 5 mg/dL (7-20); Calcium 7.7 mg/dL (8.6-10.8); Carbon Dioxide 23 mEq/L (19-29); Chloride 102 mEq/L (98-109); Globulin 3.7 g/dL (2.4-3.5); Glucose 111 mg/dL (70-99); Osmolality,Calculated 274 (280-300); Potassium 3.4 mEq/L (3.5-4.5); Sodium 133 mEq/L (136-145); Total Protein 5.1 g/dL (6.0-8.3); eGFR For African Americans > 60 (> 60); eGFR For Non-African Americans > 60 (> 60)
[2016-11-24] MEDS: Pantoprazole 40 MG VIAL IVP SCH (08:35)
[2016-11-24] MEDS: Fluconazole 200 MG/100 ML 200 MG/100 ML BAG IVPB SCH (08:36)
[2016-11-24] MEDS ORDERED: *HR* OxyCODONE/APAP 5/325 TABLET PO PRN (09:57)
[2016-11-24] MEDS: Acetaminophen 325 MG TABLET PO PRN ×2 (12:12→18:18)
--- NOTE | 2016-11-24 12:14 | Electrocardiograph Report ---
[address] [place] [address] Test Date: 2016-11-23 Pat Name: Leslye Castorena Department: 115 Room: 2N5 Gender: F Authorization Manager: TESS : 1995 Requested By: Derek Kim Order Number: [id number] Reading MD: Barbra Chan Measurements Intervals [place] Rate: 125 P: 39 MD: 149 QRS: 0 QRSD: 95 T: 32 QT: 388 QTc: 462 Interpretive Statements SINUS TACHYCARDIA NONSPECIFIC ST ABNORMALITIES ABNORMAL RHYTHM ECG Electronically Signed On 11-24-2016 12:12:42 EDT by Barbra Chan
--- NOTE | 2016-11-24 12:40 | General Surgery Progress Note ---
Date of Encounter: 11/24/16 Time of Encounter: 12:00 - Assessment and Plan (1) UTI (urinary tract infection) Current Visit: Yes Status: Acute citrobacter uti, continue zosyn wbc decreased again today, will trend Qualifiers: Urinary tract infection type: acute cystitis Hematuria presence: with hematuria Qualified Code(s): N30.01 - Acute cystitis with hematuria (2) Abdominal pain Current Visit: No Status: Acute continue prn pain medication is improved per patient Qualifiers: Abdominal location: right upper quadrant Qualified Code(s): R10.11 - Right upper quadrant pain (3) Bile leak, postoperative Current Visit: No Status: Acute IR upsized drain in pelvis yesterday and was able to pull off 500 cc bile at that time. IR physician felt like since no leak on hida and mrcp the fluid on CT was residual. Continue drain- decent amount out thus far today, discussed to try to lay on right side intermittently throughout day yeast in peritoneal fluid cultures- continue diflucan, ID/sensitivities pending lfts continue to decrease (4) Bile peritonitis Current Visit: Yes Status: Acute improved pain, continue drain (5) DVT prophylaxis Current Visit: Yes Status: Acute EPCDs, ambulate restart heparin (6) Leukocytosis Current Visit: Yes Status: Acute uti - citrobacter, zosyn yeast peritoneal cultures - diflucan, identification and sensitivities pending wbc slowly decreasing, pt continues with elevated temps and tachycardia Qualifiers: Leukocytosis type: unspecified Qualified Code(s): D72.829 - Elevated white blood cell count, unspecified (7) Tachycardia Current Visit: Yes Status: Acute likely secondary to pain, bile peritonitis and peritoneal infection, monitor, on tele Subjective Patient reports: no new complaints, feels better, still having pain, pain is less, tolerating a regular diet, flatus, bowel movement, fever Objective Vital Signs - Last 8 Hours Temp Pulse Resp BP Pulse Ox 11/24/16 10:51 100.6 F H 127 17 113/81 94 11/24/16 06:52 99.6 F 110 17 112/70 93 Intake and Output 11/23/16 11/24/16 11/24/16 23:59 07:59 15:59 Intake Total 1100 / 1100 200 / 200 360 / 360 Output Total 270 / 270 475 / 475 Balance 1075 / 1075 -70 / -70 -115 / -115 Intake: IV Fluids 1100 / 1100 200 / 200 0.9 % Sodium Chloride 1, 1000 / 1000 000 ML @ 100 mls/hr IVC . Q10H [facility] Rx#:[id number] Diflucan Premix 200 MG/ 100 / 100 100 ML 200 mg In 100 ml @ 100 mls/hr IVPB DAILY [facility] Rx#:[id number] Zosyn 3.375 GM In 100 / 100 100 / 100 Dextrose 5% (Minibag+) 100 ML 100 ML @ 25 mls/hr IVPB Q8HR [facility] Rx#: [id number] Oral 0 / 0 360 / 360 Output: Urine 0 / 0 Wound Drainage / 270 / 270 475 / 475 Right Lower Abdomen / 270 / 270 475 / 475 Other: Meal Breakfast Percent of Meal Consumed 100% - General physical appearance well developed, well nourished, no distress, moderate pain - Eyes PERRL, normal ocular movement - ENT normal mucosa, normocephalic - Neck Neck exam: trachea midline - Respiratory normal expansion, clear to auscultation - Cardiovascular Cardiovascular exam: Present: tachycardia, no murmurs/rubs/gallops - Abdomen Abdomen: Present: bowel sounds present (faint), soft, tender (mildly). Absent: guarding, rebound Abdominal Tenderness: diffusely - Integumentary no rash, no growths - Neurologic CN 2-12 grossly intact - Musculoskeletal normal posture - Psychiatric oriented to time, memory intact - Labs 11/24/16 06:05 11/24/16 06:05 Short CBC 11/24/16 Range/Units 06:05 WBC 19.0 H (4.3-11.1) K/mcL Hgb 8.7 L (11.5-15.4) g/dL Hct 27.8 L (35.3-44.9) % Plt Count 389 (140-400) K/mcL Neutrophils # 15.8 H (1.6-8.9) K/mcL BMP 11/24/16 Range/Units 06:05 Sodium 133 L (136-145) mEq/L Potassium 3.4 L (3.5-4.5) mEq/L Chloride 102 (98-109) mEq/L Carbon Dioxide 23 (19-29) mEq/L BUN 5 L (7-20) mg/dL Creatinine 0.50 L (0.57-1.11) mg/dL Glucose 111 H (70-99) mg/dL Calcium 7.7 L (8.6-10.8) mg/dL Liver Function 11/24/16 Range/Units 06:05 Total Bilirubin 1.3 H (0.2-1.2) mg/dL Direct Bilirubin 0.8 H (0.0-0.5) mg/dL AST 11 (5-34) Units/L ALT 6 (0-55) Units/L Alkaline Phosphatase 133 H (38-126) Units/L Albumin 1.4 L (3.5-5.0) g/dL Vital Signs Temp Pulse Resp BP Pulse Ox 11/24/16 10:51 100.6 F H 127 17 113/81 94 11/24/16 06:52 99.6 F 110 17 112/70 93 11/24/16 04:18 99.4 F 119 17 113/74 97 11/23/16 23:57 98.5 F 116 16 114/74 11/23/16 21:24 100.1 F H 137 17 105/76 97 11/23/16 19:30 100.2 F H 11/23/16 13:07 144 16 131/117 Intake and Output 11/23/16 11/24/16 11/24/16 23:59 07:59 15:59 Intake Total 1100 / 1100 200 / 200 360 / 360 Output Total 270 / 270 475 / 475 Balance 1075 / 1075 -70 / -70 -115 / -115 Intake: IV Fluids 1100 / 1100 200 / 200 0.9 % Sodium Chloride 1, 1000 / 1000 000 ML @ 100 mls/hr IVC . Q10H [facility] Rx#:[id number] Diflucan Premix 200 MG/ 100 / 100 100 ML 200 mg In 100 ml @ 100 mls/hr IVPB DAILY [facility] Rx#:[id number] Zosyn 3.375 GM In 100 / 100 100 / 100 Dextrose 5% (Minibag+) 100 ML 100 ML @ 25 mls/hr IVPB Q8HR [facility] Rx#: [id number] Oral 0 / 0 360 / 360 Output: Urine 0 / 0 Wound Drainage 270 / 270 475 / 475 Right Lower Abdomen 270 / 270 475 / 475 Other: Meal Breakfast Percent of Meal Consumed 100% - VTE Documentation of Mechanical Device: Intermittent pneumatic compression device Consult Discharge Plan - Plan Referrals: Tanya Oliver CNP [Primary Care Provider] -
[2016-11-24] MEDS: *HR* Heparin 5,000 UNIT/ML VIAL SQ SCH (18:10)
[2016-11-25] MEDS: *HR* HYDROmorphone (PF) 1 MG/ML SYRINGE IVP PRN ×4 (02:35→14:22)
[2016-11-25 03:53] LABS: Basophils # 0.1 K/mcL (0.0-0.2); Basophils % 0.3 %; Eosinophils # 0.4 K/mcL (0.0-0.6); Hematocrit 30.5 % (35.3-44.9); Hemoglobin 9.7 g/dL (11.5-15.4); Immature Granulocytes % 4.2 % (0-4); Lymphocytes # 2.4 K/mcL (0.6-4.6); Lymphocytes % 12.1 %; Mean Corpuscular HGB Conc 31.8 g/dL (31.6-35.5); Mean Corpuscular Hemoglobin 25.1 pg (28.0-33.3); Monocytes % 5.1 %; Neutrophils # 15.3 K/mcL (1.6-8.9); Platelet Count 496 K/mcL (140-400); Red Blood Count 3.86 M/mcL (3.82-4.97); Segmented Neutrophils % 76.3 %
[2016-11-25 04:07] LABS: Alanine Aminotransferase 8 Units/L (0-55); Albumin/Globulin Ratio 0.3 (1.1-2.2); Alkaline Phosphatase 149 Units/L (38-126); Aspartate Amino Transferase 13 Units/L (5-34); BUN/Creatinine Ratio 6 (6-26); Bilirubin,Direct 0.7 mg/dL (0.0-0.5); Bilirubin,Indirect 0.4 mg/dL (0.0-1.2); Bilirubin,Total 1.1 mg/dL (0.2-1.2); Calcium 8.2 mg/dL (8.6-10.8); Carbon Dioxide 25 mEq/L (19-29); Chloride 100 mEq/L (98-109); Globulin 4.1 g/dL (2.4-3.5); Glucose 109 mg/dL (70-99); Osmolality,Calculated 277 (280-300); Potassium 3.8 mEq/L (3.5-4.5); Sodium 135 mEq/L (136-145); Total Protein 5.5 g/dL (6.0-8.3); eGFR For African Americans > 60 (> 60); eGFR For Non-African Americans > 60 (> 60)
[2016-11-25 04:12] LABS: Albumin 1.4 g/dL (3.5-5.0); Blood Urea Nitrogen 3 mg/dL (7-20)
[2016-11-25] MEDS: *HR* Heparin 5,000 UNIT/ML VIAL SQ SCH ×3 (05:33→17:35)
[2016-11-25] MEDS: Piperacillin/Tazobactam 3.375 GM in D5% in Water (Mini-Bag+) 100 ML IVPB SCH ×2 (09:11→17:32)
[2016-11-25] MEDS: Fluconazole 200 MG/100 ML 200 MG/100 ML BAG IVPB SCH (09:12)
[2016-11-25] MEDS: 0.9 % Sodium Chloride 1,000 ML IVC SCH (09:13)
[2016-11-25] MEDS: *HR* HYDROcodone/Acet 10/325 mg TABLET PO PRN ×2 (09:13→17:30)
--- NOTE | 2016-11-25 11:03 | General Surgery Progress Note ---
Date of Encounter: 11/26/16 Time of Encounter: 11:00 - Assessment and Plan (1) Bile peritonitis Current Visit: Yes Status: Acute I explained to the patient and family that I did personally review the CT scan images and the drainage output and laboratory studies that occurred over the weekend. Her white count has stabilized in the 20,000 range. Although her drainage amount is still considerable the color of the fluid has become more dilute. It is likely that the irritative bile fluid is causing a "weeping" of the serosal surfaces and ascites which is causing this more dilute coloration. It is also likely because of the ascites fluid that the organs are creating, that the "weeping" phenomenon is the cause for the fluid not resolving as quickly as would be expected by CAT scan. This is likely due to the high ascites secretion that is still less than the fluid drainage around but still a considerable amount. I will order CT scan of the abdomen and pelvis to evaluate the gallbladder fossa and pelvis. I explained to the patient and family that if there is significant decrease in the amount of bile fluid then we can continue to watch. If not, then we will proceed with a diagnostic laparoscopy today to evacuate the fluid in the abdomen. Subjective Patient reports: other (Patient with increased pain this am. Noted nausea and vomiting. Noted events over weekend (CT scan and upsizing of pelvic drain).) Objective Vital Signs - Last 8 Hours Temp Pulse Resp BP Pulse Ox 11/25/16 10:46 98.7 F 115 16 131/86 95 11/25/16 10:00 121 20 125/76 11/25/16 06:34 99 F 122 16 123/80 96 11/25/16 04:44 99.1 F 119 17 116/83 96 Intake and Output 11/24/16 11/25/16 11/25/16 23:59 07:59 15:59 Intake Total 100 / 100 100 / 100 1000 / 1000 Output Total 440 / 440 225 / 225 110 / 110 Balance -340 / -340 -125 / -125 890 / 890 Intake: IV Fluids 100 / 100 100 / 100 1000 / 1000 0.9 % Sodium Chloride 1, 1000 / 1000 000 ML @ 40 mls/hr IVC . Q24H [facility] Rx#:[id number] Zosyn 3.375 GM In 100 / 100 100 / 100 Dextrose 5% (Minibag+) 100 ML 100 ML @ 25 mls/hr IVPB Q8HR [facility] Rx#: [id number] Output: Wound Drainage 440 / 440 225 / 225 110 / 110 Right Lower Abdomen 440 / 440 225 / 225 110 / 110 - General physical appearance well developed, moderate distress - Abdomen Abdomen: Present: soft, tender (Noted tenderness in the RLQ. Drain with bilous fluid (decreased concentration compared to Friday).) - Labs 11/25/16 02:53 11/25/16 02:53 Diabetes panel 11/25/16 Range/Units 02:53 Sodium 135 L (136-145) mEq/L Potassium 3.8 (3.5-4.5) mEq/L Chloride 100 (98-109) mEq/L Carbon Dioxide 25 (19-29) mEq/L BUN 3 L (7-20) mg/dL Creatinine 0.53 L (0.57-1.11) mg/dL Glucose 109 H (70-99) mg/dL Calcium 8.2 L (8.6-10.8) mg/dL AST 13 (5-34) Units/L ALT 8 (0-55) Units/L Alkaline Phosphatase 149 H (38-126) Units/L Albumin 1.4 L (3.5-5.0) g/dL Calcium panel 11/25/16 Range/Units 02:53 Calcium 8.2 L (8.6-10.8) mg/dL Albumin 1.4 L (3.5-5.0) g/dL Pituitary panel 11/25/16 Range/Units 02:53 Sodium 135 L (136-145) mEq/L Potassium 3.8 (3.5-4.5) mEq/L Chloride 100 (98-109) mEq/L Carbon Dioxide 25 (19-29) mEq/L BUN 3 L (7-20) mg/dL Creatinine 0.53 L (0.57-1.11) mg/dL Glucose 109 H (70-99) mg/dL Calcium 8.2 L (8.6-10.8) mg/dL Adrenal panel 11/25/16 Range/Units 02:53 Sodium 135 L (136-145) mEq/L Potassium 3.8 (3.5-4.5) mEq/L Chloride 100 (98-109) mEq/L Carbon Dioxide 25 (19-29) mEq/L BUN 3 L (7-20) mg/dL Creatinine 0.53 L (0.57-1.11) mg/dL Glucose 109 H (70-99) mg/dL Calcium 8.2 L (8.6-10.8) mg/dL Total Bilirubin 1.1 (0.2-1.2) mg/dL AST 13 (5-34) Units/L ALT 8 (0-55) Units/L Alkaline Phosphatase 149 H (38-126) Units/L Albumin 1.4 L (3.5-5.0) g/dL - VTE Documentation of Mechanical Device: Intermittent pneumatic compression device Consult Discharge Plan - Plan Referrals: Tanya Oliver, QUARRY MANAGER [Primary Care Provider] -
[2016-11-25] MEDS ORDERED: Lidocaine -MPF 4% 5 ML AMPUL ONE (20:21)
[2016-11-25] MEDS ORDERED: *HR* Succinylcholine 200 MG/10 ML VIAL IVP ONE (20:21)
[2016-11-25] MEDS ORDERED: *HR* FentaNYL (PF) 100 MCG/2 ML VIAL ONE (20:21)
[2016-11-25] MEDS ORDERED: *HR* Rocuronium Bromide 50 MG/5 ML VIAL ONE (20:21)
[2016-11-25] MEDS ORDERED: *HR* Propofol 200 MG/20 ML VIAL IVP ONE (20:21)
[2016-11-25] MEDS ORDERED: Lidocaine -MPF 2% 2 ML VIAL ONE ×2 (20:21)
[2016-11-25] MEDS ORDERED: *HR* Midazolam HCl 2 MG/2 ML VIAL ONE (20:21)
[2016-11-25] MEDS ORDERED: Acetaminophen IV 1,000 MG/100 ML INFUS..BTL ONE (20:28)
--- NOTE | 2016-11-25 20:36 | Anesthesia Evaluation PreOp ---
Date of Encounter: 11/25/16 Time of Encounter: 20:34 - Past History Planned Operation: Dx Lap Cardiac History: Denies any Significant Hx Pulmonary History: Denies Any Significant HX HAND SPLITTER History: Other (Anxiety/Depression maintained on Citalopram) Other Medical History: Denies Any Significant HX Anesthesia History: No Prior Anesthetic Complications, Past Anesthesia (ERCP , Lap Mel 11/12/2016) Alcohol Use: none Drug use: none Medications and Allergies Citalopram Hydrobromide [Celexa] 40 mg PO HS 11/12/16 [History] Levonorgestrel [Mirena] 1 each IY ONCE 11/12/16 [History] Ibuprofen [Motrin] 800 mg PO Q8H PRN #50 tablet 11/20/16 [Rx] Allergies No Known Allergies Allergy (Verified 11/12/16 14:22) - Meds/Allergy Pre-op Review Medications Reviewed: Yes Allergies Reviewed: Yes Beta Blockers on Current Med List: No Anesthesia Results - Labs 11/25/16 02:53 11/25/16 02:53 Laboratory Tests 11/11/16 11/21/16 11/22/16 08:45 20:30 13:30 PT 21.4 H INR 1.9 Calcium Phosphorus Magnesium Serum , Qual Negative Urine Test Negative 11/23/16 11/25/16 05:50 02:53 PT INR Calcium 8.2 L Phosphorus 3.3 Magnesium 1.5 L Serum , Qual Urine Test Laboratory Results Impressions Abdomen MRI 11/22/16 08:00 IMPRESSION: 1. Status postcholecystectomy. Heterogeneous T2 mid hypointense material within the gallbladder fossa correlating to the high-density material seen on yesterday's CT, which may represent postoperative blood products. 2. No biliary duct dilation. Small amount of pneumobilia with common bile duct stent in place. 3. Small to moderate volume ascites with associated mesenteric stranding and loculated fluid along the right hepatic lobe overall unchanged from 11/21/2016. This correlates to patient's known bile leak. 4. Several loops of small bowel demonstrate mild wall thickening which may be related to underdistention or enteritis. 5. Borderline splenomegaly. D/ / 11/22/2016 09:16:57 Shakila Mayers MD / katheryn Interpreting Provider: Shakila Mayers MD Bile Acid Absorption NM 11/22/16 09:00 IMPRESSION: No evidence for bile leak on today's scan. D/ / Nikita Alonso MD / Nikita Alonso MD Interpreting Provider: Nikita Alonso MD Needle Aspiration CT 11/23/16 00:00 IMPRESSION: 1. CT guided exchange of pelvic biloma drainage catheter with removal of an additional 500 mL bilious fluid. As there was no leak detected on a nuclear medicine HIDA scan I suspect most of this fluid was already present prior to the ERCP stent. I would suggest repeating the nuclear medicine HIDA scan to see if there is recurrence of a leak prior to placement of a drainage catheter within the gallbladder fossa. D/ / Antonio Valenzuela MD / Antonio Valenzuela MD Interpreting Provider: Antonio Valenzuela MD X-Ray 11/23/16 08:01 IMPRESSION: Lower mid abdominal drain as detailed. Nonspecific gas pattern D/ / Charles Mariee MD / Charles Mariee MD Interpreting Provider: Charles Mariee MD Abdomen/Pelvis CT 11/25/16 11:00 IMPRESSION: 1. Slight decrease in loculated fluid in the peritoneum related to the previously documented bile leak. Foci of gas within the collection are most prominent near the percutaneous drainage catheter and are most likely iatrogenic. However, superimposed infection is not excluded. 2. Persistent though decreased stranding in the greater omentum, likely improved peritonitis. 3. Persistent bibasilar atelectasis. Superimposed pneumonia could be present in the right lower lobe. 4. Increased trace bilateral effusions and mild anasarca. D/ / Gallo Peck MD / Gallo Peck MD Interpreting Provider: Gallo Peck MD Anesthesia Exam Vital Signs Temp Pulse Resp BP Pulse Ox 11/25/16 19:10 98.9 F 127 16 109/70 98 11/25/16 15:59 100.6 F H 88 16 112/77 98 11/25/16 10:46 98.7 F 115 16 131/86 95 11/25/16 10:00 121 20 125/76 11/25/16 06:34 99 F 122 16 123/80 96 11/25/16 04:44 99.1 F 119 17 116/83 96 Intake and Output 11/25/16 11/25/16 11/25/16 07:59 15:59 23:59 Intake Total 100 / 100 1100 / 1100 0 / 0 Output Total 225 / 225 210 / 210 125 / 125 Balance -125 / -125 890 / 890 -125 / -125 Intake: IV Fluids 100 / 100 1100 / 1100 0.9 % Sodium Chloride 1, 1000 / 1000 000 ML @ 40 mls/hr IVC . Q24H [facility] Rx#:[id number] Zosyn 3.375 GM In 100 / 100 100 / 100 Dextrose 5% (Minibag+) 100 ML 100 ML @ 25 mls/hr IVPB Q8HR [facility] Rx#: [id number] Oral 0 / 0 Output: Wound Drainage 225 / 225 210 / 210 125 / 125 Right Lower Abdomen 225 / 225 210 / 210 125 / 125 Other: # Voids 0 Height: 5'6" Weight: 214# BMI = 35 NPO (# of Hours): MNOc - HEENT Pupil (Motor): Pupils equal, EOMI Mallampati: III Oral Opening: Greater than 3 - HAND SPLITTER LOC: Oriented, Confused HAND SPLITTER Motor: Normal RUE, Normal LUE, Normal RLE, Normal LLE, Normal Face HAND SPLITTER Sensory: Normal: RUE, LUE, RLE, LLE, Face - Cardiac Rhythm: Regular Murmur: None - Pulmonary Breath Sounds: bilateral Clear Respiratory Effort: Symmetrical Anesthesia Assess/Plan ASA Score: 3 (Obesity/BMI = 35, Anxiety/Depression, Sepsis, Lyte disturbance) Modified [place] Scale for Level of Consciousness: Cooperative, oriented, and tranquil Anesthetic Plan: General Monitoring Plan: Standard Monitors Recovery Plan: PACU Anes Supervising Prov Stmt: Pt seen/evaluated, R&B Discussed, questions answered and consent obtained. Kati Storey MD
[2016-11-25] MEDS ORDERED: *HR* HYDROmorphone 2 MG/ML SYRINGE ONE ×2 (21:22→23:00)
[2016-11-25] MEDS ORDERED: Dexamethasone 4 MG/ML VIAL ONE (22:05)
[2016-11-25] MEDS ORDERED: Ondansetron 4 MG/2 ML VIAL ONE (22:05)
[2016-11-25] MEDS ORDERED: *HR* Promethazine 25 MG/ML VIAL IVP PRN (22:08)
[2016-11-25] MEDS ORDERED: *HR* HYDROmorphone (PF) 1 MG/ML SYRINGE IVP PRN (22:08)
[2016-11-25] MEDS ORDERED: *HR* Labetalol 20 MG/4 ML SYRINGE IVP PRN (22:08)
[2016-11-25] MEDS ORDERED: Neostigmine Methylsulfate 3 MG/3 ML SYRINGE ONE (23:00)
--- NOTE | 2016-11-25 23:14 | Operative Note ---
Date of procedure: 11/25/16 Pre-op diagnosis: Bile peritonitis Post-op diagnosis: same Procedure: 1. Diagnostic laparoscopy 2. Abdominal washout with drain placement. Implants: 19FR marv x 2 Anesthesia: LUNAA Surgeon: Derek Kim Wire Straightener: Laura Lewis Estimated blood loss (cc): 25 Condition: stable Disposition: PACU Procedure in Detail: Date of surgery: 11/25/16 After properly identifying the patient, the patient was brought to the operating room and placed in a supine position. After proper IV sedation was achieved followed by general endotracheal intubation, the patient's abdomen was prepped and draped in a normal sterile fashion. A timeout was performed noting the patient's name and type of procedure to be performed. A suprabumbilical incision with an 11 blade scalpel was made through the previous incision and dissection was carried down to the rectus fascia which was incised. A 12 mm port was placed through the incision and the abdomen was insufflated with carbon dioxide. A laparoscopic camera was placed through the port which showed dense omental adhesions to the abdominal wall and mild greenish staining which was consistent with a bile peritonitis. There was no open space to be visualized and dissection utilizing the camera was performed in the epigastric region and right upper quadrant to help carefully dissect the omentum away from the abdominal wall itself. This eventually allowed for visualization of the abdominal wall where the patient's epigastric and right subcostal 5 mm incisions were previously made. The patient was placed in a reverse Trendelenburg position and the right subcostal 5 mm incision was re-incised with a 15 blade scalpel allowing placement of a 5 mm port. This allowed for placement of a nontraumatic grasper through the port and further gentle dissection of the omentum and what was finally visualized as the right lobe of the liver away from the abdominal wall. Once this was performed the epigastric 5 mm incision was re-incised and another 5 mm port was introduced through this port. This allowed for further clearing of the omentum away from the abdominal wall and further visualization of not only the right upper quadrant but also the left upper quadrant. Of note; during the dissection there was a pocket of bilious fluid that was immediately entered and drained. Further dissection above the right dome of the liver also allow for further drainage of an additional large pocket of fluid. This fluid was also bilious in color. Once this was completed the patient was placed in a Trendelenburg position and the pelvis was examined. A left lower quadrant 5 mm port was placed under direct visualization and the omentum was carefully dissected away from the abdominal wall fascia in the pelvic region. There was a pocket of fluid that was bilious in nature which was immediately suctioned and further dissection towards the right lower quadrant demonstrated the location of the pigtail catheter that was placed by interventional radiology. Further dissection allowed for additional placement of a 5 mm suprapubic port which allowed for further dissection of the omentum from the sidewalls. The uterus and fallopian tubes as well as the ovaries could be visualized and the uterus was lifted superiorly allowing for entry into the fluid pocket that was adjacent to the sigmoid colon and rectum (this pocket of fluid was noted by preoperative CT scan). This bilious pocket was drained and irrigated with normal saline solution. Patient showed no evidence of injury to the bowel and the decision was made to remove the pigtail catheter and replace the right lower quadrant drain with a 19-[place] Marv drain which was draped down towards the pelvis and across to the left lower quadrant. This was secured in place with a 2-0 nylon suture. The upper abdominal area was once again reinspected and the right upper quadrant above the level of the liver was once again irrigated with normal saline solution. The right lobe of the liver was gently raised superiorly to allow for visualization of the gallbladder fossa. There was no obvious bleeding or oozing of bile noted in the fossa. This area was irrigated with normal saline solution. The decision was made to place a 19-[place] Marv drain in the right upper quadrant which was extruded through the right subcostal incision/port site. The drain was placed in the right upper quadrant above the level of the liver and draped in the region of the gallbladder fossa. The drain was secured with a 2-0 nylon suture. The abdomen was desufflated and all ports were then removed from the abdomen. The rectus fascia from the supraumbilical incision was closed with a figure-of- eight 0 Vicryl suture. The subcutaneous tissue was reapproximated with interrupted 3-0 Vicryl sutures and the remaining incisions were closed with 4-0 Monocryl sutures. Needle, sponge, and instrument counts were correct 2 and the incisions were covered with Band-Aids. The patient was aroused from IV sedation, extubated in the operating room without complication, and transferred to the recovery room in stable condition.
--- NOTE | 2016-11-25 23:46 | Anesthesia Evaluation Post Op ---
Date of Encounter: 11/25/16 Time of Encounter: 00:00 - Vital Signs Vital Signs: Vital Signs/O2 Sat/Glucose, Most Current Temp Pulse Resp BP Pulse Ox 11/25/16 23:39 112 26 134/87 96 11/25/16 23:29 120 26 137/90 96 11/25/16 23:19 98.4 F 121 26 132/84 96 - Lungs Lungs: Clear Ascult./Percussion - Airway Airway: Non-obstructed - Cardiovascular Regular Rate - Mental Status Mental Status: Alert & Oriented, Answers Appropriately, Asleep with brisk response to light stimulation - Pain Pain Scale: 4 Pain Scale used: Numeric (1 - 10) - Nausea Vomiting Nausea Vomiting: Not Present - Hydration Hydration: NPO, Has not voided - Discharge PostOp Status: Transfer Patient to floor Anes Supervising Prov Stmt: Pt seen/evaluated, VSS and pt has met criteria for discharge to floor. - MD Cordelia
[2016-11-26] MEDS: Piperacillin/Tazobactam 3.375 GM in D5% in Water (Mini-Bag+) 100 ML IVPB SCH ×4 (00:09→23:08)
[2016-11-26] MEDS: *HR* HYDROcodone/Acet 10/325 mg TABLET PO PRN ×3 (02:58→21:40)
[2016-11-26] MEDS: *HR* Heparin 5,000 UNIT/ML VIAL SQ SCH ×2 (05:40→17:44)
[2016-11-26] MEDS ORDERED: Ondansetron 4 MG/2 ML VIAL IVP PRN (06:56)
[2016-11-26] MEDS ORDERED: Naloxone 0.4 MG/ML INJ IVP PRN (06:56)
[2016-11-26] MEDS ORDERED: 0.9 % Sodium Chloride 1,000 ML IVC SCH ×2 (06:56→17:30)
[2016-11-26] MEDS ORDERED: Acetaminophen 325 MG TABLET PO PRN (06:56)
--- NOTE | 2016-11-26 07:04 | General Surgery Progress Note ---
Date of Encounter: 11/26/16 Time of Encounter: 07:03 - Assessment and Plan (1) Bile peritonitis Current Visit: Yes Status: Acute Patient is s/p diagnostic laparoscopy with abdominal washout of four "pockets' of bilious fluid collections. She feels better compared to prior to surgery. Will closely monitor ANTHONY drainage output and color. Patient tolerating PO diet. Follow labs and monitor WBC as well as vital signs to ensure overall improvement. Will continue antibiotics for now. Await results of new bile cultures obtained yesterday. Subjective Patient reports: other (Patient states she feels better. No nausea. Decreased pain compared to before the surgery. No diarrhea.) Objective Vital Signs - Last 8 Hours Temp Pulse Resp BP Pulse Ox 11/26/16 04:10 98 16 113/70 97 11/26/16 03:00 117 20 122/79 96 11/26/16 02:01 98.6 F 104 18 119/70 96 11/26/16 01:35 98.6 F 104 18 119/70 96 11/26/16 01:00 98.6 F 124 20 135/80 92 11/26/16 00:45 98.6 F 120 20 132/86 91 11/26/16 00:30 98.6 F 115 20 132/88 90 11/25/16 23:49 98.3 F 117 26 133/86 95 11/25/16 23:39 112 26 134/87 96 11/25/16 23:29 120 26 137/90 96 11/25/16 23:19 98.4 F 121 26 132/84 96 Intake and Output 11/25/16 11/25/16 11/26/16 15:59 23:59 07:59 Intake Total 1100 / 1100 100 / 100 100 / 100 Output Total 210 / 210 150 / 150 205 / 205 Balance 890 / 890 -50 / -50 -105 / -105 Intake: IV Fluids 1100 / 1100 100 / 100 100 / 100 0.9 % Sodium Chloride 1, 1000 / 1000 000 ML @ 40 mls/hr IVC . Q24H [facility] Rx#:[id number] Zosyn 3.375 GM In 100 / 100 100 / 100 100 / 100 Dextrose 5% (Minibag+) 100 ML 100 ML @ 25 mls/hr IVPB Q8HR [facility] Rx#: [id number] Oral 0 / 0 Output: Estimated Blood Loss 25 / 25 Wound Drainage 210 / 210 125 / 125 205 / 205 Right Lower Abdomen 210 / 210 125 / 125 50 / 50 Right Upper Abdomen 15 / Other: # Voids 0 - General physical appearance well nourished, no distress - Abdomen Abdomen: Present: soft (Incisional pain. ANTHONY drains with serosanginous fluid present.) - Labs 11/26/16 06:57 11/25/16 02:53 - VTE Documentation of Mechanical Device: Intermittent pneumatic compression device Consult Discharge Plan - Plan Referrals: Tanya Oliver TRACTOR TRAILER MECHANIC [Primary Care Provider] -
[2016-11-26] MEDS: *HR* HYDROmorphone (PF) 1 MG/ML SYRINGE IVP PRN ×3 (07:48→16:13)
[2016-11-26] MEDS: Fluconazole 200 MG/100 ML 200 MG/100 ML BAG IVPB SCH (08:39)
[2016-11-26 09:19] LABS: Basophils # 0.1 K/mcL (0.0-0.2); Basophils % 0.2 %; Hematocrit 30.7 % (35.3-44.9); Hemoglobin 9.7 g/dL (11.5-15.4); Immature Granulocytes % 3.4 % (0-4); Lymphocytes # 1.1 K/mcL (0.6-4.6); Lymphocytes % 4.9 %; Mean Corpuscular HGB Conc 31.6 g/dL (31.6-35.5); Mean Corpuscular Hemoglobin 24.7 pg (28.0-33.3); Mean Corpuscular Volume 78.1 fL (83.0-100.0); Mean Platelet Volume 9.8 fL (9.4-12.4); Monocytes # 0.5 K/mcL (0.0-1.3); Monocytes % 2.2 %; Neutrophils # 20.6 K/mcL (1.6-8.9); Nucleated Red Blood Cells 0.1 /100 WBC (0); Platelet Count 588 K/mcL (140-400); Red Blood Count 3.93 M/mcL (3.82-4.97); Red Cell Distribution Width 15.8 % (11.5-14.5); Segmented Neutrophils % 89.3 %
[2016-11-26 09:30] LABS: INR 1.5; Prothrombin Time 16.9 Seconds (9.4-12.1)
[2016-11-26 09:32] LABS: Albumin 1.4 g/dL (3.5-5.0); Albumin/Globulin Ratio 0.4 (1.1-2.2); Bilirubin,Direct 0.6 mg/dL (0.0-0.5); Bilirubin,Indirect 0.3 mg/dL (0.0-1.2); Bilirubin,Total 0.9 mg/dL (0.2-1.2); Total Protein 5.4 g/dL (6.0-8.3)
[2016-11-27] MEDS: *HR* HYDROmorphone (PF) 1 MG/ML SYRINGE IVP PRN ×4 (02:44→22:27)
[2016-11-27] MEDS: *HR* Heparin 5,000 UNIT/ML VIAL SQ SCH ×2 (05:55→17:31)
[2016-11-27 06:23] LABS: INR 1.6
[2016-11-27 06:30] LABS: Basophils % 0.2 %; Eosinophils % 0.2 %; Hematocrit 26.3 % (35.3-44.9); Lymphocytes # 2.4 K/mcL (0.6-4.6); Lymphocytes % 12.5 %; Mean Corpuscular HGB Conc 30.8 g/dL (31.6-35.5); Mean Corpuscular Hemoglobin 24.1 pg (28.0-33.3); Mean Corpuscular Volume 78.3 fL (83.0-100.0); Mean Platelet Volume 9.5 fL (9.4-12.4); Monocytes # 0.9 K/mcL (0.0-1.3); Monocytes % 4.8 %; Platelet Count 518 K/mcL (140-400); Red Blood Count 3.36 M/mcL (3.82-4.97); Red Cell Distribution Width 15.9 % (11.5-14.5); Segmented Neutrophils % 77.3 %
[2016-11-27 06:35] LABS: Alanine Aminotransferase 9 Units/L (0-55); Albumin 1.3 g/dL (3.5-5.0); Albumin/Globulin Ratio 0.4 (1.1-2.2); Alkaline Phosphatase 118 Units/L (38-126); Aspartate Amino Transferase 11 Units/L (5-34); BUN/Creatinine Ratio 8 (6-26); Bilirubin,Direct 0.4 mg/dL (0.0-0.5); Bilirubin,Indirect 0.3 mg/dL (0.0-1.2); Bilirubin,Total 0.7 mg/dL (0.2-1.2); Blood Urea Nitrogen 4 mg/dL (7-20); Calcium 7.7 mg/dL (8.6-10.8); Carbon Dioxide 27 mEq/L (19-29); Chloride 102 mEq/L (98-109); Globulin 3.7 g/dL (2.4-3.5); Glucose 107 mg/dL (70-99); Hemoglobin 8.1 g/dL (11.5-15.4); Osmolality,Calculated 279 (280-300); Potassium 3.6 mEq/L (3.5-4.5); Sodium 136 mEq/L (136-145); eGFR For African Americans > 60 (> 60); eGFR For Non-African Americans > 60 (> 60)
[2016-11-27] MEDS: Piperacillin/Tazobactam 3.375 GM in D5% in Water (Mini-Bag+) 100 ML IVPB SCH ×2 (08:03→15:41)
[2016-11-27] MEDS: Fluconazole 200 MG/100 ML 200 MG/100 ML BAG IVPB SCH (08:05)
--- NOTE | 2016-11-27 10:15 | General Surgery Progress Note ---
<Padmini Huynh Moe - Last Filed: 11/27/16 10:18> Date of Encounter: 11/27/16 Time of Encounter: 10:00 - Assessment and Plan (1) Bile peritonitis Current Visit: Yes Status: Acute POD #2 Diagnostic laparoscopy, Abdominal washout with drain placement with Dr. Julio ANDRADE drain more bilious today Dr. Haas contacted to evaluate the patient for further recommendations IV antibiotics- Zosyn Supportive care/pain control Continue to closely monitor drains IS every 1 hours while awake Increase activity as tolerated Repeat am labs (2) Bile leak, postoperative Current Visit: No Status: Acute Dr. Haas to see and evaluate the patient for futher recommendations Continue ANTHONY drains (3) Status post laparoscopic cholecystectomy Current Visit: No Status: Acute (4) Moderate protein-calorie malnutrition Current Visit: Yes Status: Acute NPO currently for GI evaluation Will resume regular diet and protein supplements within the next 24 hours Appetite improving (5) Anemia Current Visit: Yes Status: Acute Iron studies pending Continue to monitor Qualifiers: Anemia type: unspecified type Qualified Code(s): D64.9 - Anemia, unspecified (6) DVT prophylaxis Current Visit: Yes Status: Acute Heparin 5,000 units SQ twice daily for DVT prophylaxis Subjective Patient reports: no new complaints, feels better, still having pain, pain is less, tolerating a regular diet, voiding w/o difficulty, flatus, bowel movement , afebrile Objective Vital Signs - Last 8 Hours Temp Pulse Resp BP Pulse Ox 11/27/16 07:00 98.6 F 116 20 118/79 95 11/27/16 04:38 98.4 F 110 17 108/60 93 Intake and Output 11/26/16 11/27/16 11/27/16 23:59 07:59 15:59 Intake Total 100 / 100 100 / 100 480 / 480 Output Total 360 / 360 125 / 125 100 / 100 Balance -260 / -260 -25 / -25 380 / 380 Intake: IV Fluids 100 / 100 100 / 100 Zosyn 3.375 GM In 100 / 100 100 / 100 Dextrose 5% (Minibag+) 100 ML 100 ML @ 25 mls/hr IVPB Q8HR [facility] Rx#: [id number] Oral 480 / 480 Output: Wound Drainage 360 / 360 125 / 125 100 / 100 Right Lower Abdomen 65 / 65 25 / 25 25 / 25 Right Upper Abdomen 295 / 295 100 / 100 75 / 75 Other: Meal Breakfast Percent of Meal Consumed 50% # Voids 1 Weight 103.4 kg Patient Weight 11/27/16 23:59 Weight 103.4 kg - General physical appearance well developed, well nourished, moderate pain - Eyes normal ocular movement - ENT normal mucosa, atraumatic, normocephalic - Neck Neck exam: trachea midline - Respiratory normal respiratory effort, clear to auscultation, other (diminished bibasilar bases) - Cardiovascular Cardiovascular exam: Present: tachycardia (HR 109) - Abdomen Abdomen: Present: bowel sounds present, soft, tender, wound (RUQ ANTHONY drain with bilious drainage noted (approximately 225ml since midnight); RLQ drain with minimal amount of serousang. drainage noted.) - Incision Incision: Present: clean and dry, intact - Neurologic CN 2-12 grossly intact - Psychiatric oriented to time, oriented to person, oriented to place, speech is normal, memory intact - Labs 11/27/16 06:01 11/27/16 06:01 Diabetes panel 11/27/16 Range/Units 06:01 Sodium 136 (136-145) mEq/L Potassium 3.6 (3.5-4.5) mEq/L Chloride 102 (98-109) mEq/L Carbon Dioxide 27 (19-29) mEq/L BUN 4 L (7-20) mg/dL Creatinine 0.48 L (0.57-1.11) mg/dL Glucose 107 H (70-99) mg/dL Calcium 7.7 L (8.6-10.8) mg/dL AST 11 (5-34) Units/L ALT 9 (0-55) Units/L Alkaline Phosphatase 118 (38-126) Units/L Albumin 1.3 L (3.5-5.0) g/dL Calcium panel 11/27/16 Range/Units 06:01 Calcium 7.7 L (8.6-10.8) mg/dL Albumin 1.3 L (3.5-5.0) g/dL Pituitary panel 11/27/16 Range/Units 06:01 Sodium 136 (136-145) mEq/L Potassium 3.6 (3.5-4.5) mEq/L Chloride 102 (98-109) mEq/L Carbon Dioxide 27 (19-29) mEq/L BUN 4 L (7-20) mg/dL Creatinine 0.48 L (0.57-1.11) mg/dL Glucose 107 H (70-99) mg/dL Calcium 7.7 L (8.6-10.8) mg/dL Adrenal panel 11/27/16 Range/Units 06:01 Sodium 136 (136-145) mEq/L Potassium 3.6 (3.5-4.5) mEq/L Chloride 102 (98-109) mEq/L Carbon Dioxide 27 (19-29) mEq/L BUN 4 L (7-20) mg/dL Creatinine 0.48 L (0.57-1.11) mg/dL Glucose 107 H (70-99) mg/dL Calcium 7.7 L (8.6-10.8) mg/dL Total Bilirubin 0.7 (0.2-1.2) mg/dL AST 11 (5-34) Units/L ALT 9 (0-55) Units/L Alkaline Phosphatase 118 (38-126) Units/L Albumin 1.3 L (3.5-5.0) g/dL - VTE Documentation of Mechanical Device: Intermittent pneumatic compression device Consult Discharge Plan - Plan Referrals: Tanya Oliver, HEALTH TECH [Primary Care Provider] - - Attending Attestation I examined this patient and my medical decision-making was reviewed with the HUMAN RESOURCES SERVICES SPECIALIST/PA/Advanced Practice Nurse/Resident Physician. I agree with the documented findings, disposition and treatment plan as described except to the extent set forth below. <Derek Kim - Last Filed: 11/27/16 15:24> Date of Encounter: 11/27/16 - Assessment and Plan (1) Bile peritonitis Current Visit: Yes Status: Acute Objective Intake and Output 11/26/16 11/27/16 11/27/16 23:59 07:59 15:59 Intake Total 100 / 100 100 / 100 480 / 480 Output Total 360 / 360 125 / 125 100 / 100 Balance -260 / -260 -25 / -25 380 / 380 Intake: IV Fluids 100 / 100 100 / 100 Zosyn 3.375 GM In 100 / 100 100 / 100 Dextrose 5% (Minibag+) 100 ML 100 ML @ 25 mls/hr IVPB Q8HR [facility] Rx#: [id number] Oral 480 / 480 Output: Wound Drainage 360 / 360 125 / 125 100 / 100 Right Lower Abdomen 65 / 65 25 / 25 25 / 25 Right Upper Abdomen 295 / 295 100 / 100 75 / 75 Other: Meal Breakfast Percent of Meal Consumed 50% # Voids 1 Weight 103.4 kg Patient Weight 11/27/16 23:59 Weight 103.4 kg - Labs 11/27/16 06:01 11/27/16 06:01 Diabetes panel 11/27/16 Range/Units 06:01 Sodium 136 (136-145) mEq/L Potassium 3.6 (3.5-4.5) mEq/L Chloride 102 (98-109) mEq/L Carbon Dioxide 27 (19-29) mEq/L BUN 4 L (7-20) mg/dL Creatinine 0.48 L (0.57-1.11) mg/dL Glucose 107 H (70-99) mg/dL Calcium 7.7 L (8.6-10.8) mg/dL AST 11 (5-34) Units/L ALT 9 (0-55) Units/L Alkaline Phosphatase 118 (38-126) Units/L Albumin 1.3 L (3.5-5.0) g/dL Calcium panel 11/27/16 Range/Units 06:01 Calcium 7.7 L (8.6-10.8) mg/dL Albumin 1.3 L (3.5-5.0) g/dL Pituitary panel 11/27/16 Range/Units 06:01 Sodium 136 (136-145) mEq/L Potassium 3.6 (3.5-4.5) mEq/L Chloride 102 (98-109) mEq/L Carbon Dioxide 27 (19-29) mEq/L BUN 4 L (7-20) mg/dL Creatinine 0.48 L (0.57-1.11) mg/dL Glucose 107 H (70-99) mg/dL Calcium 7.7 L (8.6-10.8) mg/dL Adrenal panel 11/27/16 Range/Units 06:01 Sodium 136 (136-145) mEq/L Potassium 3.6 (3.5-4.5) mEq/L Chloride 102 (98-109) mEq/L Carbon Dioxide 27 (19-29) mEq/L BUN 4 L (7-20) mg/dL Creatinine 0.48 L (0.57-1.11) mg/dL Glucose 107 H (70-99) mg/dL Calcium 7.7 L (8.6-10.8) mg/dL Total Bilirubin 0.7 (0.2-1.2) mg/dL AST 11 (5-34) Units/L ALT 9 (0-55) Units/L Alkaline Phosphatase 118 (38-126) Units/L Albumin 1.3 L (3.5-5.0) g/dL - Attending Attestation I reviewed the assessment and evaluation as noted above. Noted change in color of the ANTHONY RUQ fluid this am. I have asked Dr. Haas to reassess the fluid to determine if the patient needs a repeat ERcP/stent placement vs repeat HIDA.
[2016-11-27 11:25] LABS: % Iron Saturation 9 % (15-50); Iron 11 mcg/dL (50-170); Transferrin 83 mg/dL (180-382)
[2016-11-27] MEDS: *HR* HYDROcodone/Acet 10/325 mg TABLET PO PRN (15:01)
--- NOTE | 2016-11-27 18:44 | Event Note ---
Date of Encounter: 11/27/16 Time of Encounter: 18:00 Pt seen, full consult to follow. Pt with bile leak from cystic duct stump status post ERCP with sphincterotomy and stent placement. Subsequently had a laparoscopy with drainage/suctioning of the intra-abdominal collection and a placement of a ANTHONY drain. Now the ANTHONY drain is showing large amount of bile concerning for persistent leak. Recommendation: Patient will have a repeat ERCP done with the placement of a second stent.
[2016-11-28] MEDS: Piperacillin/Tazobactam 3.375 GM in D5% in Water (Mini-Bag+) 100 ML IVPB SCH ×3 (00:43→17:18)
[2016-11-28] MEDS: *HR* HYDROmorphone (PF) 1 MG/ML SYRINGE IVP PRN ×3 (04:07→12:51)
[2016-11-28 04:37] LABS: Basophils % 0.2 %; Eosinophils # 0.1 K/mcL (0.0-0.6); Eosinophils % 0.6 %; Hematocrit 26.5 % (35.3-44.9); Hemoglobin 8.4 g/dL (11.5-15.4); Immature Granulocytes % 7.2 % (0-4); Lymphocytes # 2.8 K/mcL (0.6-4.6); Lymphocytes % 19.4 %; Mean Corpuscular HGB Conc 31.7 g/dL (31.6-35.5); Mean Corpuscular Hemoglobin 24.9 pg (28.0-33.3); Mean Corpuscular Volume 78.4 fL (83.0-100.0); Mean Platelet Volume 9.6 fL (9.4-12.4); Monocytes # 0.8 K/mcL (0.0-1.3); Monocytes % 5.6 %; Neutrophils # 9.7 K/mcL (1.6-8.9); Nucleated Red Blood Cells 0.1 /100 WBC (0); Platelet Count 590 K/mcL (140-400); Red Blood Count 3.38 M/mcL (3.82-4.97); Red Cell Distribution Width 16.1 % (11.5-14.5)
[2016-11-28 04:55] LABS: Alanine Aminotransferase 8 Units/L (0-55); Albumin/Globulin Ratio 0.4 (1.1-2.2); Alkaline Phosphatase 122 Units/L (38-126); Aspartate Amino Transferase 16 Units/L (5-34); BUN/Creatinine Ratio 5 (6-26); Bilirubin,Direct 0.5 mg/dL (0.0-0.5); Bilirubin,Indirect 0.3 mg/dL (0.0-1.2); Bilirubin,Total 0.8 mg/dL (0.2-1.2); Calcium 8.1 mg/dL (8.6-10.8); Carbon Dioxide 28 mEq/L (19-29); Chloride 102 mEq/L (98-109); Globulin 3.9 g/dL (2.4-3.5); Glucose 98 mg/dL (70-99); Osmolality,Calculated 283 (280-300); Potassium 3.4 mEq/L (3.5-4.5); Sodium 138 mEq/L (136-145); Total Protein 5.3 g/dL (6.0-8.3); eGFR For African Americans > 60 (> 60); eGFR For Non-African Americans > 60 (> 60)
[2016-11-28 05:01] LABS: Albumin 1.4 g/dL (3.5-5.0); Blood Urea Nitrogen 3 mg/dL (7-20)
[2016-11-28 05:11] LABS: Platelet Estimate Increased (Normal)
[2016-11-28] MEDS: *HR* Heparin 5,000 UNIT/ML VIAL SQ SCH ×2 (05:23→20:59)
[2016-11-28] MEDS: Fluconazole 200 MG/100 ML 200 MG/100 ML BAG IVPB SCH (08:53)
--- NOTE | 2016-11-28 11:15 | Gastroenterology Consult Note ---
<Gallo Hopson Kleber - Last Filed: 11/28/16 11:21> Date of Encounter: 11/28/16 Time of Encounter: 10:20 - Assessment and plan (1) Bile leak, postoperative Current Visit: No Status: Acute Assessment and plan: Patient is s/p ERCP with sphincterotomy and stent placement on 11/19/2016. Pt underwent diagnostic laparoscopy on 11/25/16 with abdominal washout of four pockets of bilious fluid collections and ANTHONY drains were placed. Plan for repeat ERCP today, keep pt NPO. (2) Status post laparoscopic cholecystectomy Current Visit: No Status: Acute (3) Anemia Current Visit: Yes Status: Acute Assessment and plan: Continue to monitor CBC and transfuse PRBC as needed. Iron low at 11, continue iron supplement. Qualifiers: Anemia type: unspecified type Qualified Code(s): D64.9 - Anemia, unspecified - Time Spent With Patient Total time spent is greater than 50% in coordination of care (as documented) at patient's floor/unit and/or counseling patient: GI History of Present Illness - Data of Consult Patient: known to practice within the last 3 years Consult date: 11/28/16 Requesting Physician: Derek Kim MD - Consult Narrative Reason for consult: Bile leak History of present illness: Ms. Castorena is a 21 year old female with no significant past medical history who underwent lap demian on 11/12/[address] Kim. Pt with bile leak from cystic duct stump s/p ERCP with sphincterotomy and stent placement on 11/19/2016 and was discharged home on 11/20/2016. She states her abdominal pain returned on 11/21 and states it was more severe than she had experienced prior. She also reports nausea and bilious vomiting. No fevers, chest pain, hematemesis, coffee- ground emesis, melena, or hematochezia. CT on admission showed evidence of significant fluid within the intra-abdominal space. HIDA scan 11/22/16 showed no evidence of an active leak. Pigtail catheter was placed by IR on 11/22. Pt underwent diagnostic laparoscopy on 11/25/16 with abdominal washout of four pockets of bilious fluid collections and ANTHONY drain was placed. Procedures: ERCP 11/19/2016 Dr. Haas: Bile leak from cystic duct stump, and enterotomy performed, biliary tree swept and nothing found, one temporary stent placed into the CBD. NSAIDs: Ibuprofen Anticoagulation: None Past Med Surg Social Fam HX - Past Medical History Medical history: no medical history Psychiatric history: anxiety, depression - Past Surgical History Surgical History: cholecystectomy - Social History Smoking Status: Never smoker Smokeless Tobacco Status: No Alcohol use: none Drug use: none - Family History Grandfather Living Status: Still Living Hx Family Cardiac Disorders: Yes Hx Family Endocrine Disorder: Yes Mother Age: 47 Living Status: Still Living Hx Family Cardiac Disorders: Yes (hypertension) Hx Family Endocrine Disorder: Yes (diabetes) Father Living Status: Still Living - Gastrointestinal Gastrointestinal: Present: as per HPI - Constitutional Constitutional: as per HPI - EENT Eyes: as per HPI Ears: Present: as per HPI Nose, mouth and throat: Present: as per HPI - Cardiovascular Cardiovascular ROS: Present: as per HPI - Respiratory Respiratory IM: Present: as per HPI - Genitourinary Genitourinary: Absent: change in color, Urinary frequency - Neurological ROS Neurological GI: Present: as per HPI - Hematologic/Lymphatic Hematologic/Lymphatic pediatric: Present: as per HPI - Musculoskeletal Musculoskeletal ROS GI: Present: as per HPI - Integumentary Integumentary GI: Present: as per HPI - Psychiatric ROS Psychiatric GI: Present: as per HPI - Endocrine Endocrine IM: Present: as per HPI - Constitutional Vitals: Temp Pulse Resp BP Pulse Ox 98.2 F 111 18 129/85 97 11/28/16 07:30 11/28/16 07:30 11/28/16 07:30 11/28/16 07:30 11/28/16 07:30 General appearance: Present: cooperative, A&O X 3, no acute distress, answers questions appropriately - Head Head exam: Present: atraumatic, normocephalic - Eye Eye exam: Present: normal appearance, sclera anicteric - ENT ENT exam: Present: mucous membranes dry - Neck Neck exam general surgery: Present: normal inspection, trachea midline - Respiratory Respiratory exam: Present: CTAB. Absent: rales, rhonchi - Cardiovascular Cardiovascular exam: Present: RRR, +S1, +S2 - GI/Abdominal GI/Abdominal exam: Present: normal bowel sounds, soft, tenderness (right sided pain with palpation.), no peritoneal signs. Absent: distended, firm, guarding Additional comments: RUQ ANTHONY drain with bilious drainage, RLQ with serosanguineous drainage. - Rectal Rectal exam: Present: deferred - Extremities Exam Extremities exam: Present: warm - Neurological Exam Neurological exam: Present: no focal deficits - Psychiatric Psychiatric exam: Present: normal affect, normal mood - Skin Skin exam: Present: dry, intact, normal color, warm Results - Labs CBC & Chem 7: 11/28/16 04:15 11/28/16 04:15 Labs: Last Result Calcium 8.1 mg/dL (8.6-10.8) L 11/28/16 04:15 Iron 11 mcg/dL (50-170) L 11/27/16 06:01 % Saturation 9 % (15-50) L 11/27/16 06:01 Transferrin 83 mg/dL (180-382) L 11/27/16 06:01 Entire Visit Hgb 8.4 g/dL (11.5-15.4) L 11/28/16 04:15 Hct 26.5 % (35.3-44.9) L 11/28/16 04:15 PT 17.0 Seconds (9.4-12.1) H 11/27/16 06:01 Total Bilirubin 0.8 mg/dL (0.2-1.2) 11/28/16 04:15 AST 16 Units/L (5-34) 11/28/16 04:15 ALT 8 Units/L (0-55) 11/28/16 04:15 Amylase 42 Units/L (25-125) 11/21/16 14:20 Lipase 31 Units/L (8-78) 11/21/16 14:20 - ABG ABG results: PT/INR, D-dimer PT 17.0 Seconds (9.4-12.1) H 11/27/16 06:01 Consult Discharge Plan - Plan Referrals: Tanya Oliver CNP [Primary Care Provider] - 12/11/16 2:45 pm <Shakir Haas - Last Filed: 11/28/16 18:19> Date of Encounter: 11/28/16 Time of Encounter: 14:00 - Time Spent With Patient Total time spent is greater than 50% in coordination of care (as documented) at patient's floor/unit and/or counseling patient: GI History of Present Illness - Data of Consult Requesting Physician: Derek Kim MD - Consult Narrative History of present illness: Ms. Castorena is a 21 year old female - Constitutional Vitals: Temp Pulse Resp BP Pulse Ox 97.5 F L 102 18 138/88 97 11/28/16 17:13 11/28/16 17:13 11/28/16 17:13 11/28/16 17:13 11/28/16 17:13 Results - Labs CBC & Chem 7: 11/28/16 04:15 11/28/16 04:15 Labs: Last Result Calcium 8.1 mg/dL (8.6-10.8) L 11/28/16 04:15 Iron 11 mcg/dL (50-170) L 11/27/16 06:01 % Saturation 9 % (15-50) L 11/27/16 06:01 Transferrin 83 mg/dL (180-382) L 11/27/16 06:01 Entire Visit Hgb 8.4 g/dL (11.5-15.4) L 11/28/16 04:15 Hct 26.5 % (35.3-44.9) L 11/28/16 04:15 PT 17.0 Seconds (9.4-12.1) H 11/27/16 06:01 Total Bilirubin 0.8 mg/dL (0.2-1.2) 11/28/16 04:15 AST 16 Units/L (5-34) 11/28/16 04:15 ALT 8 Units/L (0-55) 11/28/16 04:15 Amylase 42 Units/L (25-125) 11/21/16 14:20 Lipase 31 Units/L (8-78) 11/21/16 14:20 - ABG ABG results: PT/INR, D-dimer PT 17.0 Seconds (9.4-12.1) H 11/27/16 06:01 - Impressions Impressions Cath/Invasive Procedure 11/28/16 14:25 IMPRESSION: Fluoroscopy provided during ERCP and common bile duct stenting. Please refer to the procedure report for full details. D/ / Paramjit Butler MD / Paramjit Butler MD Interpreting Provider: Paramjit Butler MD - Attending Attestation I examined this patient and my medical decision-making was reviewed with the BLENDING TECHNICIAN/PA/Advanced Practice Nurse/Resident Physician. I agree with the documented findings, disposition and treatment plan as described except to the extent set forth below. persistent bile leak despite having an ERCP with sphincterotomy. We will do a repeat ERCP with placement of additional stents
--- NOTE | 2016-11-28 11:46 | General Surgery Progress Note ---
Date of Encounter: 11/28/16 Time of Encounter: 11:25 - Assessment and Plan (1) Bile peritonitis Current Visit: Yes Status: Acute Patient is s/p diagnostic laparoscopy with abdominal washout of four "pockets' of bilious fluid collections-POD#4 Patient will be scheduled for ERCP this afternoon with Dr. Haas. Once that has been completed I will go ahead and advance her diet. I did explain to the patient and family that her white count has further decreased to approximately 14.5K. We will continue antibiotics for now but will consider possible DC of Zosyn in the next 24-48 hours. Will closely monitor drainage output amount and color. Subjective Patient reports: other (Continues to have intermittent lower abdominal pain. No nausea or vomiting. Patient NPO for ERCP.) Objective Vital Signs - Last 8 Hours Temp Pulse Resp BP Pulse Ox 11/28/16 07:30 98.2 F 111 18 129/85 97 11/28/16 04:18 98.8 F 124 19 123/69 96 Intake and Output 11/27/16 11/28/16 11/28/16 23:59 07:59 15:59 Intake Total 100 / 100 100 / 100 Output Total 75 / 75 225 / 225 150 / 150 Balance 25 / 25 -125 / -125 -150 / -150 Intake: IV Fluids 100 / 100 100 / 100 Zosyn 3.375 GM In 100 / 100 100 / 100 Dextrose 5% (Minibag+) 100 ML 100 ML @ 25 mls/hr IVPB Q8HR [facility] Rx#: [id number] Output: Wound Drainage 75 / 75 225 / 225 150 / 150 Right Lower Abdomen 50 / 50 75 / 75 25 / 25 Right Upper Abdomen 25 / 25 150 / 150 125 / 125 Other: # Voids 3 Weight 98.7 kg Patient Weight 11/28/16 23:59 Weight 98.7 kg - General physical appearance other (Mild distress) - Abdomen Abdomen: Present: soft, tender (Lower abdominal pain and incisional pain. RUQ drain with bilious fluid. RLQ drain with serosangious fluid.) - Labs 11/28/16 04:15 11/28/16 04:15 Diabetes panel 11/28/16 Range/Units 04:15 Sodium 138 (136-145) mEq/L Potassium 3.4 L (3.5-4.5) mEq/L Chloride 102 (98-109) mEq/L Carbon Dioxide 28 (19-29) mEq/L BUN 3 L (7-20) mg/dL Creatinine 0.55 L (0.57-1.11) mg/dL Glucose 98 (70-99) mg/dL Calcium 8.1 L (8.6-10.8) mg/dL AST 16 (5-34) Units/L ALT 8 (0-55) Units/L Alkaline Phosphatase 122 (38-126) Units/L Albumin 1.4 L (3.5-5.0) g/dL Calcium panel 11/28/16 Range/Units 04:15 Calcium 8.1 L (8.6-10.8) mg/dL Albumin 1.4 L (3.5-5.0) g/dL Pituitary panel 11/28/16 Range/Units 04:15 Sodium 138 (136-145) mEq/L Potassium 3.4 L (3.5-4.5) mEq/L Chloride 102 (98-109) mEq/L Carbon Dioxide 28 (19-29) mEq/L BUN 3 L (7-20) mg/dL Creatinine 0.55 L (0.57-1.11) mg/dL Glucose 98 (70-99) mg/dL Calcium 8.1 L (8.6-10.8) mg/dL Adrenal panel 11/28/16 Range/Units 04:15 Sodium 138 (136-145) mEq/L Potassium 3.4 L (3.5-4.5) mEq/L Chloride 102 (98-109) mEq/L Carbon Dioxide 28 (19-29) mEq/L BUN 3 L (7-20) mg/dL Creatinine 0.55 L (0.57-1.11) mg/dL Glucose 98 (70-99) mg/dL Calcium 8.1 L (8.6-10.8) mg/dL Total Bilirubin 0.8 (0.2-1.2) mg/dL AST 16 (5-34) Units/L ALT 8 (0-55) Units/L Alkaline Phosphatase 122 (38-126) Units/L Albumin 1.4 L (3.5-5.0) g/dL - VTE Documentation of Mechanical Device: Intermittent pneumatic compression device Consult Discharge Plan - Plan Referrals: Tanya Oliver CNP [Primary Care Provider] - 12/11/16 2:45 pm
[2016-11-28] MEDS ORDERED: *HR* Succinylcholine 200 MG/10 ML VIAL IVP ONE (13:20)
[2016-11-28] MEDS ORDERED: Lidocaine -MPF 2% 5 ML VIAL INFILT ONE (13:20)
[2016-11-28] MEDS ORDERED: *HR* Propofol 200 MG/20 ML VIAL IVP ONE (13:20)
[2016-11-28] MEDS ORDERED: Lidocaine -MPF 4% 5 ML AMPUL TP ONE (13:20)
[2016-11-28] MEDS ORDERED: *HR* Rocuronium Bromide 50 MG/5 ML VIAL IVC ONE (13:20)
[2016-11-28] MEDS ORDERED: Ondansetron 4 MG/2 ML VIAL IVP ONE ×2 (13:20→14:57)
[2016-11-28] MEDS ORDERED: *HR* FentaNYL (PF) 100 MCG/2 ML VIAL ONE ×2 (14:11→14:51)
--- NOTE | 2016-11-28 14:17 | Anesthesia Evaluation PreOp ---
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) Other Medical History: Denies Any Significant HX Anesthesia History: No Prior Anesthetic Complications Alcohol Use: none Drug use: none Medications and Allergies Citalopram Hydrobromide [Celexa] 40 mg PO HS 11/12/16 [History] Levonorgestrel [Mirena] 1 each IY ONCE 11/12/16 [History] Ibuprofen [Motrin] 800 mg PO Q8H PRN #50 tablet 11/20/16 [Rx] Allergies No Known Allergies Allergy (Verified 11/12/16 14:22) - Meds/Allergy Pre-op Review Medications Reviewed: Yes Allergies Reviewed: Yes Beta Blockers on Current Med List: No Anesthesia Results - Labs 11/28/16 04:15 11/28/16 04:15 Anesthesia Exam Last Vital Signs Temp 98.6 F 11/28/16 14:06 Pulse 112 11/28/16 14:06 Resp 20 11/28/16 14:06 BP 143/79 11/28/16 14:06 Pulse Ox 94 11/28/16 14:06 Weight: 99 kg NPO (# of Hours): >> 8 hrs - HEENT Pupil (Motor): Pupils equal, EOMI Mallampati: I Teeth: Normal Oral Opening: Greater than 3 - NASCAR DRIVER LOC: Oriented NASCAR DRIVER Motor: Normal RUE, Normal LUE, Normal RLE, Normal LLE, Normal Face - Cardiac Rhythm: Regular Murmur: None - Pulmonary Breath Sounds: bilateral Clear Respiratory Effort: Symmetrical Anesthesia Assess/Plan ASA Score: 2 Modified [place] Scale for Level of Consciousness: Cooperative, oriented, and tranquil Anesthetic Plan: General Monitoring Plan: Standard Monitors Recovery Plan: PACU
[2016-11-28] MEDS ORDERED: Indomethacin 50 MG SUPP.RECT RC ONE (14:33)
[2016-11-28] MEDS ORDERED: *HR* FentaNYL (PF) 100 MCG/2 ML VIAL IVP ONE (14:52)
[2016-11-28] MEDS ORDERED: *HR* Promethazine 25 MG/ML VIAL IVP PRN (14:57)
[2016-11-28] MEDS ORDERED: *HR* Labetalol 20 MG/4 ML SYRINGE IVP PRN (14:57)
[2016-11-28] MEDS ORDERED: *HR* HYDROmorphone (PF) 1 MG/ML SYRINGE IVP PRN (14:57)
[2016-11-28] MEDS ORDERED: Ketorolac 15 MG/ML VIAL IVP ONE (14:57)
[2016-11-28] MEDS ORDERED: Dexamethasone 4 MG/ML VIAL IVP ONE (14:57)
--- NOTE | 2016-11-28 15:55 | Anesthesia Evaluation Post Op ---
Date of Encounter: 11/28/16 Time of Encounter: 15:53 - Vital Signs Vital Signs: - Lungs Lungs: Clear Ascult./Percussion - Airway Airway: Non-obstructed - Cardiovascular Regular Rate, Baseline Rhythm - Mental Status Mental Status: Alert & Oriented, Answers Appropriately - Pain Pain Scale: 2 - Nausea Vomiting Nausea Vomiting: Not Present - Hydration Hydration: NPO, Has not voided - Discharge PostOp Status: Transfer Patient to floor
[2016-11-29] MEDS: Piperacillin/Tazobactam 3.375 GM in D5% in Water (Mini-Bag+) 100 ML IVPB SCH ×4 (01:30→23:44)
[2016-11-29] MEDS: *HR* HYDROcodone/Acet 10/325 mg TABLET PO PRN ×2 (03:55→14:25)
[2016-11-29 04:15] LABS: Hemoglobin 8.6 g/dL (11.5-15.4); Mean Corpuscular HGB Conc 30.7 g/dL (31.6-35.5); Mean Corpuscular Hemoglobin 24.1 pg (28.0-33.3); Mean Corpuscular Volume 78.4 fL (83.0-100.0); Mean Platelet Volume 9.3 fL (9.4-12.4); Nucleated Red Blood Cells 0.2 /100 WBC (0); Platelet Count 716 K/mcL (140-400); Red Blood Count 3.57 M/mcL (3.82-4.97); Red Cell Distribution Width 15.9 % (11.5-14.5)
[2016-11-29 04:35] LABS: Alanine Aminotransferase 10 Units/L (0-55); Albumin/Globulin Ratio 0.3 (1.1-2.2); Alkaline Phosphatase 141 Units/L (38-126); Aspartate Amino Transferase 19 Units/L (5-34); BUN/Creatinine Ratio 10 (6-26); Bilirubin,Direct 0.5 mg/dL (0.0-0.5); Bilirubin,Indirect 0.3 mg/dL (0.0-1.2); Bilirubin,Total 0.8 mg/dL (0.2-1.2); Calcium 8.7 mg/dL (8.6-10.8); Carbon Dioxide 28 mEq/L (19-29); Chloride 104 mEq/L (98-109); Globulin 4.4 g/dL (2.4-3.5); Glucose 128 mg/dL (70-99); Lipase 51 Units/L (8-78); Osmolality,Calculated 289 (280-300); Potassium 3.9 mEq/L (3.5-4.5); Sodium 140 mEq/L (136-145); Total Protein 5.9 g/dL (6.0-8.3); eGFR For African Americans > 60 (> 60); eGFR For Non-African Americans > 60 (> 60)
[2016-11-29 04:36] LABS: Albumin 1.5 g/dL (3.5-5.0); Blood Urea Nitrogen 5 mg/dL (7-20)
[2016-11-29 04:38] LABS: Platelet Estimate Marked Increase (Normal)
[2016-11-29 04:40] LABS: Hypersegmented Neutrophils Present (Not Present); Large Platelets Present (Not Present); Lymphocytes # 2.3 K/mcL (0.6-4.6); Monocytes # 0.3 K/mcL (0.0-1.3); Neutrophils # 13.5 K/mcL (1.6-8.9); Toxic Granulation Present (Not Present)
--- NOTE | 2016-11-29 06:50 | General Surgery Progress Note ---
Date of Encounter: 11/28/16 Time of Encounter: 06:50 - Assessment and Plan (1) Bile peritonitis Current Visit: Yes Status: Acute Patient is s/p diagnostic laparoscopy with abdominal washout of four "pockets' of bilious fluid collections-POD#4 Patient will be scheduled for ERCP this afternoon with Dr. Haas. Once that has been completed I will go ahead and advance her diet. I did explain to the patient and family that her white count has further decreased to approximately 14.5K. We will continue antibiotics for now but will consider possible DC of Zosyn in the next 24-48 hours. Will closely monitor drainage output amount and color. Objective Vital Signs - Last 8 Hours Temp Pulse Resp BP Pulse Ox 11/29/16 06:35 97.9 F 94 15 109/65 96 11/29/16 00:26 98.9 F 84 14 116/73 92 Intake and Output 11/28/16 11/28/16 11/29/16 15:59 23:59 07:59 Intake Total 100 / 100 100 / 100 0 / 0 Output Total 245 / 245 355 / 355 Balance -145 / -145 100 / 100 -355 / -355 Intake: IV Fluids 100 / 100 100 / 100 Zosyn 3.375 GM In 100 / 100 100 / 100 Dextrose 5% (Minibag+) 100 ML 100 ML @ 25 mls/hr IVPB Q8HR [facility] Rx#: [id number] Oral 0 / 0 Output: Urine 0 / 0 Wound Drainage 245 / 245 355 / 355 Right Lower Abdomen 45 / 45 20 / 20 Right Upper Abdomen 200 / 200 335 / 335 Other: # Voids 4 # Urine Diapers 1 Weight 94.5 kg Patient Weight 11/29/16 23:59 Weight 94.5 kg - Labs 11/29/16 03:40 11/29/16 03:40 Diabetes panel 11/29/16 Range/Units 03:40 Sodium 140 (136-145) mEq/L Potassium 3.9 (3.5-4.5) mEq/L Chloride 104 (98-109) mEq/L Carbon Dioxide 28 (19-29) mEq/L BUN 5 L (7-20) mg/dL Creatinine 0.52 L (0.57-1.11) mg/dL Glucose 128 H (70-99) mg/dL Calcium 8.7 (8.6-10.8) mg/dL AST 19 (5-34) Units/L ALT 10 (0-55) Units/L Alkaline Phosphatase 141 H (38-126) Units/L Albumin 1.5 L (3.5-5.0) g/dL Calcium panel 11/29/16 Range/Units 03:40 Calcium 8.7 (8.6-10.8) mg/dL Albumin 1.5 L (3.5-5.0) g/dL Pituitary panel 11/29/16 Range/Units 03:40 Sodium 140 (136-145) mEq/L Potassium 3.9 (3.5-4.5) mEq/L Chloride 104 (98-109) mEq/L Carbon Dioxide 28 (19-29) mEq/L BUN 5 L (7-20) mg/dL Creatinine 0.52 L (0.57-1.11) mg/dL Glucose 128 H (70-99) mg/dL Calcium 8.7 (8.6-10.8) mg/dL Adrenal panel 11/29/16 Range/Units 03:40 Sodium 140 (136-145) mEq/L Potassium 3.9 (3.5-4.5) mEq/L Chloride 104 (98-109) mEq/L Carbon Dioxide 28 (19-29) mEq/L BUN 5 L (7-20) mg/dL Creatinine 0.52 L (0.57-1.11) mg/dL Glucose 128 H (70-99) mg/dL Calcium 8.7 (8.6-10.8) mg/dL Total Bilirubin 0.8 (0.2-1.2) mg/dL AST 19 (5-34) Units/L ALT 10 (0-55) Units/L Alkaline Phosphatase 141 H (38-126) Units/L Albumin 1.5 L (3.5-5.0) g/dL - VTE Documentation of Mechanical Device: Intermittent pneumatic compression device Consult Discharge Plan - Plan Referrals: Tanya Oliver CNP [Primary Care Provider] - 12/11/16 2:45 pm
[2016-11-29] MEDS: *HR* Heparin 5,000 UNIT/ML VIAL SQ SCH ×2 (06:51→18:39)
--- NOTE | 2016-11-29 07:30 | General Surgery Progress Note ---
Date of Encounter: 12/02/16 Time of Encounter: 07:26 - Assessment and Plan (1) Bile peritonitis Current Visit: Yes Status: Acute Patient is s/p diagnostic laparoscopy with abdominal washout of four "pockets' of bilious fluid collections-POD#4 As noted above the patient has had a repeat ERCP with 2 additional stents placed (total of 3 stents). ANTHONY bulb show ileus fluid present. I reviewed the cholangiogram images during this most recent ERCP showing extravasation of contrast at the level of the suspected cystic duct stump. The drain is in proper position with immediate drainage of the extravasated fluid during the cholangiogram study. With the 3 stents placed the bile duct system should be more fully decompressed to allow for flow into the small bowel. Discussed with my colleague (Dr. Villanueva) who suggested that given time the area will seal and we should continue with ANTHONY bulb suction and management of the right upper quadrant. Consider repeat CT scan image of the abdomen and pelvis to ensure that there are no further pockets that need to be drained and that the pelvic fluid collection has fully resolved. If the pelvic fluid space has resolved in the right lower quadrant then the drain may be removed later on today. Subjective Patient reports: other (The patient admits to some abdominal pain. No nausea or vomiting. S/P ERCP with two additional stent placments.) Objective Vital Signs - Last 8 Hours Temp Pulse Resp BP Pulse Ox 11/29/16 06:35 97.9 F 94 15 109/65 96 11/29/16 00:26 98.9 F 84 14 116/73 92 Intake and Output 11/28/16 11/28/16 11/29/16 15:59 23:59 07:59 Intake Total 100 / 100 100 / 100 0 / 0 Output Total 245 / 245 355 / 355 Balance -145 / -145 100 / 100 -355 / -355 Intake: IV Fluids 100 / 100 100 / 100 Zosyn 3.375 GM In 100 / 100 100 / 100 Dextrose 5% (Minibag+) 100 ML 100 ML @ 25 mls/hr IVPB Q8HR [facility] Rx#: [id number] Oral 0 / 0 Output: Urine 0 / 0 Wound Drainage 245 / 245 355 / 355 Right Lower Abdomen 45 / 45 20 / 20 Right Upper Abdomen 200 / 200 335 / 335 Other: # Voids 4 # Urine Diapers 1 Weight 94.5 kg Patient Weight 11/29/16 23:59 Weight 94.5 kg - General physical appearance well developed, other (Mild distress. Resting.) - Abdomen Abdomen: Present: soft, tender (Mildly tender in the RUQ. ANTHONY drain in the RUQ with bilious fluid. RLQ drain with scant serosangious fluid.) - Labs 12/02/16 04:30 11/30/16 03:57 Diabetes panel 11/29/16 Range/Units 03:40 Sodium 140 (136-145) mEq/L Potassium 3.9 (3.5-4.5) mEq/L Chloride 104 (98-109) mEq/L Carbon Dioxide 28 (19-29) mEq/L BUN 5 L (7-20) mg/dL Creatinine 0.52 L (0.57-1.11) mg/dL Glucose 128 H (70-99) mg/dL Calcium 8.7 (8.6-10.8) mg/dL AST 19 (5-34) Units/L ALT 10 (0-55) Units/L Alkaline Phosphatase 141 H (38-126) Units/L Albumin 1.5 L (3.5-5.0) g/dL Calcium panel 11/29/16 Range/Units 03:40 Calcium 8.7 (8.6-10.8) mg/dL Albumin 1.5 L (3.5-5.0) g/dL Pituitary panel 11/29/16 Range/Units 03:40 Sodium 140 (136-145) mEq/L Potassium 3.9 (3.5-4.5) mEq/L Chloride 104 (98-109) mEq/L Carbon Dioxide 28 (19-29) mEq/L BUN 5 L (7-20) mg/dL Creatinine 0.52 L (0.57-1.11) mg/dL Glucose 128 H (70-99) mg/dL Calcium 8.7 (8.6-10.8) mg/dL Adrenal panel 11/29/16 Range/Units 03:40 Sodium 140 (136-145) mEq/L Potassium 3.9 (3.5-4.5) mEq/L Chloride 104 (98-109) mEq/L Carbon Dioxide 28 (19-29) mEq/L BUN 5 L (7-20) mg/dL Creatinine 0.52 L (0.57-1.11) mg/dL Glucose 128 H (70-99) mg/dL Calcium 8.7 (8.6-10.8) mg/dL Total Bilirubin 0.8 (0.2-1.2) mg/dL AST 19 (5-34) Units/L ALT 10 (0-55) Units/L Alkaline Phosphatase 141 H (38-126) Units/L Albumin 1.5 L (3.5-5.0) g/dL - VTE Documentation of Mechanical Device: Intermittent pneumatic compression device Consult Discharge Plan - Plan Referrals: Tanya Oliver CNP [Primary Care Provider] - 12/11/16 2:45 pm
[2016-11-29] MEDS: Fluconazole 200 MG/100 ML 200 MG/100 ML BAG IVPB SCH (08:46)
[2016-11-29] MEDS: *HR* HYDROmorphone (PF) 1 MG/ML SYRINGE IVP PRN ×2 (08:49→19:53)
[2016-11-30] MEDS: *HR* HYDROmorphone (PF) 1 MG/ML SYRINGE IVP PRN ×6 (02:47→20:27)
[2016-11-30 04:06] LABS: Basophils % 0.2 %; Eosinophils # 0.1 K/mcL (0.0-0.6); Eosinophils % 0.5 %; Hematocrit 27.8 % (35.3-44.9); Hemoglobin 8.4 g/dL (11.5-15.4); Immature Granulocytes % 4.4 % (0-4); Lymphocytes # 3.4 K/mcL (0.6-4.6); Lymphocytes % 20.4 %; Mean Corpuscular HGB Conc 30.2 g/dL (31.6-35.5); Mean Corpuscular Hemoglobin 24.1 pg (28.0-33.3); Mean Corpuscular Volume 79.9 fL (83.0-100.0); Monocytes # 0.7 K/mcL (0.0-1.3); Monocytes % 3.9 %; Neutrophils # 11.9 K/mcL (1.6-8.9); Nucleated Red Blood Cells 0.1 /100 WBC (0); Platelet Count 737 K/mcL (140-400); Red Blood Count 3.48 M/mcL (3.82-4.97); Red Cell Distribution Width 16.2 % (11.5-14.5); Segmented Neutrophils % 70.6 %
[2016-11-30 04:17] LABS: BUN/Creatinine Ratio 14 (6-26); Blood Urea Nitrogen 9 mg/dL (7-20); Calcium 7.7 mg/dL (8.6-10.8); Carbon Dioxide 30 mEq/L (19-29); Chloride 103 mEq/L (98-109); Glucose 104 mg/dL (70-99); Osmolality,Calculated 283 (280-300); Potassium 3.9 mEq/L (3.5-4.5); Sodium 137 mEq/L (136-145); eGFR For African Americans > 60 (> 60); eGFR For Non-African Americans > 60 (> 60)
[2016-11-30 04:30] LABS: Platelet Estimate Marked Increase (Normal)
[2016-11-30] MEDS: *HR* Heparin 5,000 UNIT/ML VIAL SQ SCH ×2 (05:23→18:01)
[2016-11-30] MEDS: Piperacillin/Tazobactam 3.375 GM in D5% in Water (Mini-Bag+) 100 ML IVPB SCH ×3 (08:41→23:13)
[2016-11-30] MEDS: Fluconazole 200 MG/100 ML 200 MG/100 ML BAG IVPB SCH (08:42)
--- NOTE | 2016-11-30 11:53 | General Surgery Progress Note ---
Date of Encounter: 11/30/16 Time of Encounter: 11:30 - Assessment and Plan (1) Bile leak, postoperative Current Visit: No Status: Acute The patient seems to be progressing well after repeat laparoscopy and common bile duct stent placement we will continue supportive care. Subjective Narrative: The patient has had multiple common bile duct stents and laparoscopy for postoperative bile leak. Today the Kol[place]-Ledesma biliary drainage is starting to decrease in volume. She does complain of some abdominal discomfort that is mild. All the incisions are intact. Objective Vital Signs - Last 8 Hours Temp Pulse Resp BP Pulse Ox 11/30/16 07:45 98.6 F 105 16 116/75 96 11/30/16 04:00 97 17 119/76 96 Intake and Output 11/29/16 11/30/16 11/30/16 23:59 07:59 15:59 Intake Total 400 / 400 200 / 200 240 / 240 Output Total 175 / 175 0 / 0 25 / 25 Balance 225 / 225 200 / 200 215 / 215 Intake: IV Fluids 100 / 100 200 / 200 Diflucan Premix 200 MG/ 100 / 100 100 ML 200 mg In 100 ml @ 100 mls/hr IVPB DAILY [facility] Rx#:[id number] Zosyn 3.375 GM In 100 / 100 100 / 100 Dextrose 5% (Minibag+) 100 ML 100 ML @ 25 mls/hr IVPB Q8HR [facility] Rx#: [id number] Oral 300 / 300 0 / 0 240 / 240 Output: Urine 0 / 0 0 / 0 Wound Drainage 175 / 175 25 / 25 Right Lower Abdomen 0 / 0 Right Upper Abdomen 175 / 175 25 / 25 Other: Meal Breakfast Percent of Meal Consumed 10% # Voids 2 2 Weight 95.2 kg Patient Weight 11/30/16 23:59 Weight 95.2 kg - General physical appearance well developed, well nourished, moderate pain - Respiratory normal expansion, normal respiratory effort, clear to percussion, clear to auscultation - Cardiovascular Cardiovascular exam: Present: RRR, no murmurs/rubs/gallops - Abdomen Abdomen: Present: bowel sounds present, soft - Incision Incision: Present: clean and dry - Labs 11/30/16 03:57 11/30/16 03:57 Diabetes panel 11/30/16 Range/Units 03:57 Sodium 137 (136-145) mEq/L Potassium 3.9 (3.5-4.5) mEq/L Chloride 103 (98-109) mEq/L Carbon Dioxide 30 H (19-29) mEq/L BUN 9 (7-20) mg/dL Creatinine 0.65 (0.57-1.11) mg/dL Glucose 104 H (70-99) mg/dL Calcium 7.7 L (8.6-10.8) mg/dL Calcium panel 11/30/16 Range/Units 03:57 Calcium 7.7 L (8.6-10.8) mg/dL Pituitary panel 11/30/16 Range/Units 03:57 Sodium 137 (136-145) mEq/L Potassium 3.9 (3.5-4.5) mEq/L Chloride 103 (98-109) mEq/L Carbon Dioxide 30 H (19-29) mEq/L BUN 9 (7-20) mg/dL Creatinine 0.65 (0.57-1.11) mg/dL Glucose 104 H (70-99) mg/dL Calcium 7.7 L (8.6-10.8) mg/dL Adrenal panel 11/30/16 Range/Units 03:57 Sodium 137 (136-145) mEq/L Potassium 3.9 (3.5-4.5) mEq/L Chloride 103 (98-109) mEq/L Carbon Dioxide 30 H (19-29) mEq/L BUN 9 (7-20) mg/dL Creatinine 0.65 (0.57-1.11) mg/dL Glucose 104 H (70-99) mg/dL Calcium 7.7 L (8.6-10.8) mg/dL - VTE Documentation of Mechanical Device: Intermittent pneumatic compression device Consult Discharge Plan - Plan Referrals: Tanya Oliver CNP [Primary Care Provider] - 12/11/16 2:45 pm
[2016-12-01] MEDS: *HR* HYDROmorphone (PF) 1 MG/ML SYRINGE IVP PRN ×8 (00:04→22:03)
[2016-12-01] MEDS: *HR* Heparin 5,000 UNIT/ML VIAL SQ SCH ×2 (05:47→18:11)
[2016-12-01] MEDS: Fluconazole 200 MG/100 ML 200 MG/100 ML BAG IVPB SCH (07:59)
[2016-12-01] MEDS: Piperacillin/Tazobactam 3.375 GM in D5% in Water (Mini-Bag+) 100 ML IVPB SCH ×2 (08:01→15:07)
--- NOTE | 2016-12-01 12:10 | General Surgery Progress Note ---
Date of Encounter: 12/01/16 Time of Encounter: 10:30 - Assessment and Plan (1) Bile leak, postoperative Current Visit: No Status: Acute The patient seems to be progressing well after repeat laparoscopy and common bile duct stent placement we will continue supportive care. 12/01/2016. The patient is made significant improvement last 24 hours with significant decrease in the Kol[place]-Ledesma drainage. We will order a CBC and liver function tests morning Subjective Narrative: The patient states that she feels better and that the drainage from the Kol[place]- Ledesma drains in the right upper quadrant is significantly decreasing. Kol[place]- Ledesma drainage has fallen to 90 mL per shift and on examination this morning is probably less. Her abdomen is soft and she is tolerating regular diet and she is made significant improvement in the last 24 hours Objective Vital Signs - Last 8 Hours Temp Pulse Resp BP Pulse Ox 12/01/16 08:05 98.2 F 109 16 119/74 96 12/01/16 04:47 98.1 F 110 17 101/69 96 Intake and Output 11/30/16 12/01/16 12/01/16 23:59 07:59 15:59 Intake Total 100 / 100 200 / 200 480 / 480 Output Total 125 / 125 90 / 90 Balance -25 / -25 110 / 110 480 / 480 Intake: IV Fluids 100 / 100 200 / 200 Diflucan Premix 200 MG/ 100 / 100 100 ML 200 mg In 100 ml @ 100 mls/hr IVPB DAILY [facility] Rx#:[id number] Zosyn 3.375 GM In 100 / 100 100 / 100 Dextrose 5% (Minibag+) 100 ML 100 ML @ 25 mls/hr IVPB Q8HR [facility] Rx#: [id number] Oral 480 / 480 Output: Wound Drainage 125 / 125 90 / 90 Right Lower Abdomen 100 / 100 60 / 60 Right Upper Abdomen 25 / 25 30 / 30 Other: Meal Breakfast Percent of Meal Consumed 25% # Voids 3 1 Weight 93.8 kg Patient Weight 12/01/16 23:59 Weight 93.8 kg - General physical appearance no pain, obese - Respiratory normal expansion, normal respiratory effort, clear to percussion, clear to auscultation - Cardiovascular Cardiovascular exam: Present: RRR, no murmurs/rubs/gallops - Abdomen Abdomen: Present: bowel sounds present, soft, non tender - Incision Incision: Present: clean and dry - Neurologic normal coordination, normal sensation - Psychiatric oriented to time, oriented to person, oriented to place, speech is normal, memory intact - Labs 11/30/16 03:57 11/30/16 03:57 - VTE Documentation of Mechanical Device: Intermittent pneumatic compression device Consult Discharge Plan - Plan Referrals: Tanya lOiver CNP [Primary Care Provider] - 12/11/16 2:45 pm
[2016-12-02] MEDS: Piperacillin/Tazobactam 3.375 GM in D5% in Water (Mini-Bag+) 100 ML IVPB SCH ×3 (00:19→17:15)
[2016-12-02] MEDS: *HR* HYDROmorphone (PF) 1 MG/ML SYRINGE IVP PRN ×6 (02:30→21:52)
[2016-12-02 04:39] LABS: Hematocrit 30.1 % (35.3-44.9); Hemoglobin 9.2 g/dL (11.5-15.4); Immature Platelets 2.2 % (1.1-6.1); Mean Corpuscular HGB Conc 30.6 g/dL (31.6-35.5); Mean Corpuscular Hemoglobin 24.4 pg (28.0-33.3); Mean Corpuscular Volume 79.8 fL (83.0-100.0); Red Blood Count 3.77 M/mcL (3.82-4.97); Red Cell Distribution Width 15.9 % (11.5-14.5)
[2016-12-02] MEDS: *HR* Heparin 5,000 UNIT/ML VIAL SQ SCH ×2 (05:43→17:15)
[2016-12-02 05:46] LABS: Albumin/Globulin Ratio 0.3 (1.1-2.2); Bilirubin,Direct 0.4 mg/dL (0.0-0.5); Bilirubin,Indirect 0.3 mg/dL (0.0-1.2); Bilirubin,Total 0.7 mg/dL (0.2-1.2); Total Protein 6.7 g/dL (6.0-8.3)
[2016-12-02 05:47] LABS: Albumin 1.7 g/dL (3.5-5.0)
[2016-12-02] MEDS: Fluconazole 200 MG/100 ML 200 MG/100 ML BAG IVPB SCH (07:46)
--- NOTE | 2016-12-02 08:46 | General Surgery Progress Note ---
Date of Encounter: 12/02/16 Time of Encounter: 08:46 - Assessment and Plan (1) Bile peritonitis Current Visit: Yes Status: Acute Border CT scan of the abdomen and pelvis to help evaluate for the decreased drainage from the right upper quadrant drain and also to see if there is worsening or increase fluid collections which may explain the patient's cramping abdominal pain. There is also the possibility of going ahead and placing a percutaneous catheter in the lower pelvic drain of fluid is still present on CAT scan. Once this was performed with be able to determine the next most appropriate step. Continue IV antibiotics and continue to monitor with WBC which trended upwards. Subjective Patient reports: other (Patient with cramping mid-abdominal pain. Noted pain occurred after eating breakfast (patient states immediately).) Objective Vital Signs - Last 8 Hours Temp Pulse Resp BP Pulse Ox 12/02/16 08:00 107 18 126/81 12/02/16 04:20 98.3 F 112 18 97 Intake and Output 12/01/16 12/02/16 12/02/16 23:59 07:59 15:59 Intake Total 100 / 100 100 / 100 Output Total 65 / 65 / Balance 35 / 35 73 / 73 Intake: IV Fluids 100 / 100 100 / 100 Zosyn 3.375 GM In 100 / 100 100 / 100 Dextrose 5% (Minibag+) 100 ML 100 ML @ 25 mls/hr IVPB Q8HR [facility] Rx#: [id number] Output: Wound Drainage 65 / 65 / Right Lower Abdomen 50 / 50 25 / 25 Right Upper Abdomen 15 / 15 2 / 2 Other: Weight 93.2 kg Patient Weight 12/02/16 23:59 Weight 93.2 kg - General physical appearance severe pain - Abdomen Abdomen: Present: soft, tender (Noted incisions CDI. JPs in place. Minimal fluid in both drains.) - Labs 12/02/16 04:30 11/30/16 03:57 Diabetes panel 12/02/16 Range/Units 04:30 AST 21 (5-34) Units/L ALT 11 (0-55) Units/L Alkaline Phosphatase 122 (38-126) Units/L Albumin 1.7 L (3.5-5.0) g/dL Calcium panel 12/02/16 Range/Units 04:30 Albumin 1.7 L (3.5-5.0) g/dL Adrenal panel 12/02/16 Range/Units 04:30 Total Bilirubin 0.7 (0.2-1.2) mg/dL AST 21 (5-34) Units/L ALT 11 (0-55) Units/L Alkaline Phosphatase 122 (38-126) Units/L Albumin 1.7 L (3.5-5.0) g/dL - VTE Documentation of Mechanical Device: Intermittent pneumatic compression device Consult Discharge Plan - Plan Referrals: Tanya Oliver CNP [Primary Care Provider] - 12/11/16 2:45 pm
[2016-12-02] MEDS: *HR* HYDROcodone/Acet 10/325 mg TABLET PO PRN (10:59)
[2016-12-02] MEDS ORDERED: 0.9 % Sodium Chloride 500 ML ONE (16:17)
[2016-12-02] MEDS: *HR* FentaNYL (PF) 100 MCG/2 ML VIAL IVP PRN ×2 (16:31→16:38)
[2016-12-02] MEDS: *HR* Midazolam HCl 2 MG/2 ML VIAL IVP PRN ×2 (16:32→16:38)
--- NOTE | 2016-12-02 16:53 | IR Procedure Note ---
Date of procedure: 12/02/16 Consent Obtained: Written consent Timeout: Time out performed Local anesthetic: Lidocaine 1% Indications: Bile leak, post op. Left abdomen collection not draining well. Procedure Performed: New left abdominal drain placement Site/Technique: LLQ access Results/Findings: 12 fr drain placed. Estimated blood loss (cc): 2 Complications: None; Tolerated procedure well Post Procedure Treatment Plan: Monitoring in pts room
[2016-12-03] MEDS: Piperacillin/Tazobactam 3.375 GM in D5% in Water (Mini-Bag+) 100 ML IVPB SCH (00:59)
[2016-12-03] MEDS: *HR* HYDROmorphone (PF) 1 MG/ML SYRINGE IVP PRN (04:13)
[2016-12-03] MEDS: *HR* Heparin 5,000 UNIT/ML VIAL SQ SCH ×2 (05:11→17:13)
[2016-12-03 06:48] LABS: Eosinophils # 0.2 K/mcL (0.0-0.6); Hematocrit 31.5 % (35.3-44.9); Hemoglobin 9.4 g/dL (11.5-15.4); Mean Corpuscular HGB Conc 29.8 g/dL (31.6-35.5); Mean Corpuscular Hemoglobin 23.6 pg (28.0-33.3); Mean Corpuscular Volume 79.1 fL (83.0-100.0); Mean Platelet Volume 8.8 fL (9.4-12.4); Platelet Count 751 K/mcL (140-400); Red Blood Count 3.98 M/mcL (3.82-4.97); Red Cell Distribution Width 15.9 % (11.5-14.5)
[2016-12-03 07:37] LABS: Lymphocytes # 1.8 K/mcL (0.6-4.6); Monocytes # 0.8 K/mcL (0.0-1.3); Neutrophils # 13.5 K/mcL (1.6-8.9)
[2016-12-03 07:39] LABS: Platelet Estimate Increased (Normal); Polychromasia 1+ (Not Present)
--- NOTE | 2016-12-03 08:30 | General Surgery Progress Note ---
Date of Encounter: 12/04/16 Time of Encounter: 08:25 - Assessment and Plan (1) Bile peritonitis Current Visit: Yes Status: Acute Patient underwent IR LLQ drain placement. Minimal fluid in current drain. It is possible that her pain is related to the RLQ drain, however I do not want to remove that drain at this time due to the fact that it is still draining the lower quadrant fluid collection. Closely monitor drainage output. RUQ drain with minimal drainage. For possible removal tomorrow. Will add Bentyl and Toradol to see if this improves her pain symptoms. Also T/ C changing dilaudid to morphine to see if the change in medications helps her pain. Noted decrease in WBC. Possibly related to drain placement vs toeing of her white count due to normalizing bone marrow production. Continue Diflucan. D/C Zosyn. Will follow. Subjective Patient reports: other (Noted intermittent sharp mid abdominal pain. Patient states it has been present since the flusing of the lower abdominal drain on . Still present. Positive BM.) Objective Vital Signs - Last 8 Hours Temp Pulse Resp BP Pulse Ox 12/03/16 06:45 98.2 F 97 15 117/61 12/03/16 04:00 98.5 F 113 16 107/63 97 Intake and Output 12/02/16 12/03/16 12/03/16 23:59 07:59 15:59 Intake Total 591 / 591 0 / 0 Output Total 0 / 0 35 / 35 Balance 591 / 591 -35 / -35 Intake: Oral 0 / 0 0 / 0 Other 591 / 591 Output: Urine 0 / 0 0 / 0 Wound Drainage 0 / 0 35 / 35 Left Pelvic Region 0 / 0 0 / 0 Right Lower Abdomen 35 / 35 Right Upper Abdomen 0 / 0 Other: # Voids 1 Weight 88.7 kg Patient Weight 12/03/16 23:59 Weight 88.7 kg - General physical appearance moderate pain - Abdomen Abdomen: Present: soft, tender (Mild pain around ANTHONY entry sites.) - Labs 12/03/16 06:29 11/30/16 03:57 - VTE Documentation of Mechanical Device: Intermittent pneumatic compression device Consult Discharge Plan - Plan Referrals: Tanya Oliver CNP [Primary Care Provider] - 12/11/16 2:45 pm
[2016-12-03] MEDS: *HR* Morphine 2 MG/ML SYRINGE IVP PRN ×2 (08:53→18:21)
[2016-12-03] MEDS: Fluconazole 200 MG/100 ML 200 MG/100 ML BAG IVPB SCH (09:01)
[2016-12-03] MEDS: Ketorolac 30 MG/ML VIAL IVP SCH ×3 (11:25→23:54)
[2016-12-03] MEDS ORDERED: Ketorolac 30 MG/ML VIAL IM SCH (12:00)
[2016-12-03] MEDS ORDERED: Dicyclomine 20 MG/2 ML AMPUL IM SCH (12:00)
[2016-12-04] MEDS: *HR* Morphine 2 MG/ML SYRINGE IVP PRN (01:18)
[2016-12-04] MEDS: *HR* HYDROcodone/Acet 10/325 mg TABLET PO PRN (03:59)
[2016-12-04] MEDS: *HR* Heparin 5,000 UNIT/ML VIAL SQ SCH (06:04)
[2016-12-04] MEDS: Ketorolac 30 MG/ML VIAL IVP SCH ×2 (06:05→12:05)
--- NOTE | 2016-12-04 08:03 | General Surgery Progress Note ---
Date of Encounter: 12/04/16 Time of Encounter: 08:02 - Assessment and Plan (1) Bile peritonitis Current Visit: Yes Status: Resolved Review of the drainage amount from the right upper quadrant drain. No output is noticed from this drain; it will be removed here morning. The lower drains will still be kept in place. Noted decrease in white count and continued elevation of her hemoglobin. If she continues to improve then she may be able to be discharged later today or tomorrow. Subjective Patient reports: other (The patient is tearful. No current abdominal pain. Unsure if she had any abdominal pain with dinner yesterday evening.) Objective Vital Signs - Last 8 Hours Temp Pulse Resp BP Pulse Ox 12/04/16 06:47 98.3 F 98 16 107/58 95 12/04/16 02:54 98.0 F 89 16 103/68 99 Intake and Output 12/03/16 12/04/16 12/04/16 23:59 07:59 15:59 Intake Total 860 / 860 0 / 0 Output Total 55 / 55 Balance 845 / 845 -55 / -55 Intake: Oral 860 / 860 0 / 0 Output: Urine 0 / 0 0 / 0 Wound Drainage 55 / 55 Left Lower Abdomen 20 / 20 Left Pelvic Region 0 / 0 0 / 0 Right Lower Abdomen 30 / 30 Right Upper Abdomen 0 / 0 5 / 5 Other: Meal Dinner Percent of Meal Consumed 90% # Voids 2 Weight 88 kg Patient Weight 12/04/16 23:59 Weight 88 kg - General physical appearance well developed, well nourished, moderate distress - Abdomen Abdomen: Present: soft, tender (Mild tenderness at drain site locations. RUQ drain with scant fluid. Serosangious fluid in the lower abdominal drains.) - Labs 12/04/16 07:47 11/30/16 03:57 - VTE Documentation of Mechanical Device: Intermittent pneumatic compression device Consult Discharge Plan - Plan Instructions: Urinary Tract Infection in Women (DC), Kol[place]-Ledesma Drain Care ( DC), Anemia (GEN) Additional Instructions: #1 may shower, no tub bath or swimming until cleared per surgeon #2 wash incisions with soap and water and pat dry daily; wash around drains with soap and water daily in the shower and re-apply split 4X4 gauze and tape to secure. #3 no lifting, pushing, pulling more than 120 pounds for the next 2 weeks #4 no driving until off narcotics for 24 hours and able to safely react in the car #5 may climb stairs ANTHONY drain- empty drain 2 times daily and as needed if full. Record outputs on drain records and bring to follow-up appointment with Padmini Huynh on 12/12/16 Referrals: Tanya Oliver CNP [Primary Care Provider] - 12/11/16 2:45 pm Padmini Huynh CNP [Advanced Practice Nurse] - 12/12/16 9:00 am (drain check ) Prescriptions: Dicyclomine [Bentyl] 20 mg PO QID PRN #120 capsule PRN Reason: Abdominal Distention HYDROcodone/Acet 10/325 mg [Imperial 10-325 mg] 1 each PO Q6H PRN #30 tablet PRN Reason: Mild To Moderate Pain Ibuprofen [Motrin] 800 mg PO Q8H PRN #50 tablet PRN Reason: Pain
[2016-12-04 08:05] LABS: Basophils # 0.1 K/mcL (0.0-0.2); Basophils % 0.5 %; Eosinophils # 0.2 K/mcL (0.0-0.6); Eosinophils % 1.5 %; Hemoglobin 10.1 g/dL (11.5-15.4); Immature Granulocytes % 5.1 % (0-4); Lymphocytes # 2.6 K/mcL (0.6-4.6); Lymphocytes % 19.4 %; Mean Corpuscular HGB Conc 29.7 g/dL (31.6-35.5); Mean Corpuscular Hemoglobin 23.8 pg (28.0-33.3); Mean Corpuscular Volume 80.2 fL (83.0-100.0); Mean Platelet Volume 8.8 fL (9.4-12.4); Monocytes # 0.6 K/mcL (0.0-1.3); Monocytes % 4.8 %; Neutrophils # 9.1 K/mcL (1.6-8.9); Platelet Count 745 K/mcL (140-400); Red Blood Count 4.24 M/mcL (3.82-4.97); Red Cell Distribution Width 15.5 % (11.5-14.5); Segmented Neutrophils % 68.7 %
[2016-12-04 08:34] LABS: Polychromasia 1+ (Not Present)
[2016-12-04] MEDS: Fluconazole 200 MG/100 ML 200 MG/100 ML BAG IVPB SCH (09:40)
[2016-12-04 11:06] VITALS: BP 106/63
--- NOTE | 2016-12-04 14:13 | Discharge Summary ---
Date of Encounter: 12/04/16 Time of Encounter: 14:00 - Discharge Diagnosis (1) Bile peritonitis Priority: Primary Status: Resolved (2) Bile leak, postoperative Priority: Primary Status: Resolved (3) Status post laparoscopic cholecystectomy Priority: Primary Status: Acute (4) Moderate protein-calorie malnutrition Priority: Secondary Status: Acute (5) Anemia Priority: Secondary Status: Acute Qualifiers: Anemia type: unspecified type Qualified Code(s): D64.9 - Anemia, unspecified - Discharge Medications Prescriptions: Dicyclomine [Bentyl] 20 mg PO QID PRN #120 capsule PRN Reason: Abdominal Distention HYDROcodone/Acet 10/325 mg [[place] 10-325 mg] 1 each PO Q6H PRN #30 tablet PRN Reason: Mild To Moderate Pain Ibuprofen [Motrin] 800 mg PO Q8H PRN #50 tablet PRN Reason: Pain Home Medications: Citalopram Hydrobromide [Celexa] 40 mg PO HS 11/12/16 [History] Levonorgestrel [Mirena] 1 each IY ONCE 11/12/16 [History] Dicyclomine [Bentyl] 20 mg PO QID PRN #120 capsule 12/04/16 [Rx] HYDROcodone/Acet 10/325 mg [[place] 10-325 mg] 1 each PO Q6H PRN #30 tablet [Rx] Ibuprofen [Motrin] 800 mg PO Q8H PRN #50 tablet 12/04/16 [Rx] Allergies/Adverse Reactions: Allergies No Known Allergies Allergy (Verified 11/12/16 14:22) General Surgery Exam Initial Vital Signs Temp Pulse Resp BP Pulse Ox 98.2 F 138 18 116/74 96 11/21/16 12:23 11/21/16 12:23 11/21/16 12:23 11/21/16 12:23 11/21/16 12:23 - General physical appearance well developed, well nourished, no distress - Eyes normal ocular movement - ENT normal mucosa, atraumatic, normocephalic - Neck trachea midline - Respiratory normal respiratory effort, clear to auscultation - Cardiovascular Cardiovascular exam: Present: RRR - Abdomen Abdomen general surgery: Present: bowel sounds present, soft, tender (expected tenderness), wound (Pelvic drains 2 with serosanguineous drainage noted.) - Incision Incision: Present: clean and dry, intact - Integumentary Integumentary general surgery: Present: warm and dry - Neurologic Present: CN 2-12 grossly intact - Musculoskeletal Present: normal gait, normal posture - Psychiatric Psychiatric general surgery: Present: appropriate, oriented to person, oriented to place, oriented to time, speech is normal, memory intact Date of admission: 11/21/16 17:15 Primary care physician: ROSANA Herrera Consults: 11/23/16 00:28 Consult to Hospitalist [CONS] Routine Consulting Provider: Hospitalist Lisa Reason for Consult: elevated heart rate Call Completed: Yes 11/27/16 09:45 Consult to Gastroenterology [CONS] Stat Consulting Provider: Gastroenterology [place] Reason for Consult: Bile leak. Possible need for repeat ERCP/stent Time Notified: 09:46 Call Completed: Yes 11/27/16 14:17 Consult to Invasive Line Access Team [CONS] Routine Reason for Consult: limited vascular access Line Type: EPIV PICC line indications: Limited vascular access Time Notified: 14:17 Call Completed: Yes 12/02/16 10:31 Consult to Interventional Radiology [CONS] Stat Consulting Provider: Radiology Interventional [facility] Reason for Consult: Pelvic fluid collection. Consult for drainage/catheter placement Call Completed: No Discharging clinician: Derek Kim (Ben Huynh) Anticipated date of discharge: 12/04/16 - Patient Status Disposition: Home, Self-Care Condition: Good Functional capacity at discharge: independent ambulation Overall status at discharge: patient is progressing back to baseline - Discharge Instructions Instructions: Urinary Tract Infection in Women (DC), [place] Drain Care ( DC), Anemia (GEN) Follow Up With: Tanya Oliver CNP [Primary Care Provider] - 12/11/16 2:45 pm Padmini Huynh CNP [Advanced Practice Nurse] - 12/12/16 9:00 am (drain check ) Additional Instructions: #1 may shower, no tub bath or swimming until cleared per surgeon #2 wash incisions with soap and water and pat dry daily; wash around drains with soap and water daily in the shower and re-apply split 4X4 gauze and tape to secure. #3 no lifting, pushing, pulling more than 120 pounds for the next 2 weeks #4 no driving until off narcotics for 24 hours and able to safely react in the car #5 may climb stairs ANTHONY drain- empty drain 2 times daily and as needed if full. Record outputs on drain records and bring to follow-up appointment with Padmini Huynh on 12/12/16 - Diet and Activity Activity: other (See additional instructions above) Diet: advance to your usual diet - Hospital Course Hospital course: Ms. Castorena is a 21 year old female who is status post a laparoscopic cholecystectomy with Dr. Kim on 11/12/2016. Her postoperative course has been complicated by a postoperative bile leak. She was readmitted to the hospital on postoperative day #6 and did have evidence of a bile leak at that time. She was sent for an ERCP and did have a stent placement with Dr. Haas. The patient was discharged 24 hours after completion of her ERCP after having significant improvement of symptoms. She returned to the hospital within 24 hours with complaints of increasing abdominal pain, nausea and vomiting, fevers and chills, tachycardia. The patient had a CAT scan completed which showed evidence of a significant amount of fluid within the abdomen concerning for bile. She was admitted to the hospital and treated for bile peritonitis. She did undergo a paracentesis in the emergency department per Dr. Kim. The patient then had a drain placed per interventional radiology in the pelvis. There was a significant amount of bilious material drained from this catheter. The patient showed little to no improvement with drainage of this fluid. She was taken back to the operating room for exploratory laparotomy, drainage of loculated fluid collections, and placement of right upper quadrant drain per Dr. Kim. She then had repeat CAT scan which shows minimal decrease in the amount of fluid within the abdomen and pelvis. RUQ drain continued to drain bilious material. Dr. Haas was contacted and did take the patient back for repeat ERCP. She did have 3 stents placed with repeat ERCP. The patient did have an elevated white blood cell count which is been treated with IV antibiotic therapy during her hospital stay. Her white blood cell count is now trending towards normal. She also has experienced anemia which is likely secondary to critical illness. She has been treated with FE by mouth iron twice a day. Her hemoglobin level has been improving daily with resolution of bile peritonitis and with FE supplements. Her right upper quadrant drain had very minimal drainage after completion of ERCP and 3 stent placements. This was discontinued per Dr. Kim's orders. The patient did have a second drain placed within the pelvis per Interventional Radiology. The patient states that her pain has significantly improved and this is being managed with [place], Toradol, and Bentyl. Her vital signs are stable and she is afebrile. Her laboratory values are trending towards normal. She is voiding and ambulating without difficulty. We will begin discharge planning to home with [address] within the pelvis. We will plan for outpatient follow-up in the next 7- 10 days. - Time Spent with Patient Total time spent providing and/or coordinating discharge services: Greater than 30 minutes Labs on day of discharge: Labs from last 24 hours 12/04/16 07:47 WBC 13.3 H RBC 4.24 Hgb 10.1 L Hct 34.0 L MCV 80.2 L MCH 23.8 L MCHC 29.7 L RDW 15.5 H Plt Count 745 H MPV 8.8 L Immature Gran % 5.1 H Seg Neutrophils % 68.7 Lymphocytes % 19.4 Monocytes % 4.8 Eosinophils % 1.5 Basophils % 0.5 Neutrophils # 9.1 H Lymphocytes # 2.6 Monocytes # 0.6 Eosinophils # 0.2 Basophils # 0.1 Polychromasia 1+ A - Impressions ITS Impressions Needle Aspiration CT 11/22/16 00:00 IMPRESSION: Successful 10 [place] locking loop drainage catheter placed into the pelvis for bile leak. D/ / Emeterio Monroy MD / Emeterio Monroy MD Interpreting Provider: Emeterio Monroy MD Abdomen MRI 11/22/16 08:00 IMPRESSION: 1. Status postcholecystectomy. Heterogeneous T2 mid hypointense material within the gallbladder fossa correlating to the high-density material seen on yesterday's CT, which may represent postoperative blood products. 2. No biliary duct dilation. Small amount of pneumobilia with common bile duct stent in place. 3. Small to moderate volume ascites with associated mesenteric stranding and loculated fluid along the right hepatic lobe overall unchanged from 11/21/2016. This correlates to patient's known bile leak. 4. Several loops of small bowel demonstrate mild wall thickening which may be related to underdistention or enteritis. 5. Borderline splenomegaly. D/ / 11/22/2016 09:16:57 Shakila Mayers MD / katheryn Interpreting Provider: Shakila Mayers MD Bile Acid Absorption NM 11/22/16 09:00 IMPRESSION: No evidence for bile leak on today's scan. D/ / Nikita Alonso MD / Nikita Alonso MD Interpreting Provider: Nikita Alonso MD Needle Aspiration CT 11/23/16 00:00 IMPRESSION: 1. CT guided exchange of pelvic biloma drainage catheter with removal of an additional 500 mL bilious fluid. As there was no leak detected on a nuclear medicine HIDA scan I suspect most of this fluid was already present prior to the ERCP stent. I would suggest repeating the nuclear medicine HIDA scan to see if there is recurrence of a leak prior to placement of a drainage catheter within the gallbladder fossa. D/ / Antonio Valenzuela MD / Antonio Valenzuela MD Interpreting Provider: Antonio Valenzuela MD Abdomen/Pelvis CT 11/23/16 00:26 IMPRESSION: 1. Again demonstrated is a moderate amount of partially loculated bile throughout the abdomen and pelvis, related to a known bile leak. Interval placement of a pigtail drain within the largest collection of bile in the pelvis, which appears to communicate with the bile in the abdomen. There has only been a mild decrease in the overall amount of bile when compared with the preprocedure CT, although, the drain appears appropriately positioned. Correlation with drain outputs is suggested. 2. Evidence of bile peritonitis, similar to the prior examination. D/ / Paramjit Butler MD / Paramjit Butler MD Interpreting Provider: Paramjit Butler MD X-Ray 11/23/16 08:01 IMPRESSION: Lower mid abdominal drain as detailed. Nonspecific gas pattern D/ / Charles Mariee MD / Charles Mariee MD Interpreting Provider: Charles Mariee MD Abdomen/Pelvis CT 11/25/16 11:00 IMPRESSION: 1. Slight decrease in loculated fluid in the peritoneum related to the previously documented bile leak. Foci of gas within the collection are most prominent near the percutaneous drainage catheter and are most likely iatrogenic. However, superimposed infection is not excluded. 2. Persistent though decreased stranding in the greater omentum, likely improved peritonitis. 3. Persistent bibasilar atelectasis. Superimposed pneumonia could be present in the right lower lobe. 4. Increased trace bilateral effusions and mild anasarca. D/ / Gallo Peck MD / Gallo Peck MD Interpreting Provider: Gallo Peck MD Cath/Invasive Procedure 11/28/16 14:25 IMPRESSION: Fluoroscopy provided during ERCP and common bile duct stenting. Please refer to the procedure report for full details. D/ / Paramjit Butler MD / Paramjit Butler MD Interpreting Provider: Paramjit Butler MD Abdomen/Pelvis CT 11/29/16 07:31 IMPRESSION: 1. 2 new drains are present in the abdomen with decreased volume of peritoneal fluid and gas along with improved mesenteric edema. Pattern evidence of improving biliary leak. 2. Stable pleural effusions and consolidation in both lower lobes, suspected to represent atelectasis or pneumonitis. D/ / Sam Granados MD / Sam Granados MD Interpreting Provider: Sam Granados MD Needle Aspiration CT 12/02/16 00:00 IMPRESSION: Successful CT-guided drain placement into the left abdomen as described above. D/ / Emeterio Monroy MD / Emeterio Monroy MD Interpreting Provider: Emeterio Monroy MD Abdomen/Pelvis CT 12/02/16 08:45 IMPRESSION: 1. Slight decrease size of the complex fluid collection within the abdomen and pelvis. Percutaneous drains are present within the collection. 2. Status post cholecystectomy. Biliary stent is present. 3. Some improvement in the bibasilar atelectasis. Small left pleural effusion. D/ / Milton Marks MD / Milton Marks MD Interpreting Provider: Milton Marks MD - Attending Attestation I examined this patient and my medical decision-making was reviewed with the MECHANICAL ESTIMATOR/PA/Advanced Practice Nurse/Resident Physician. I agree with the documented findings, disposition and treatment plan as described except to the extent set forth below.
== END 2016-12-04 16:20 | disposition home or self-care (01) | DRG 357 ==
LOC: EMEROO 12:18 → 3ANU 12:18 → 2NENU 11-23 01:23
PROVIDERS: ADMIT Nurse Practitioner Family; ATTEND Surgery
PROC: IRDRAIN (2016-11-23 12:46)

== ENCOUNTER 2016-12-14 09:56 | Inpatient (IN) ==
[2016-12-14 10:34] LABS: Bilirubin,Urine Negative (Negative); Blood,Urine Trace (Negative); Clarity,Urine Cloudy (Clear); Color,Urine Yellow (Yellow); Glucose,Urine (UA) Normal (Normal); Ketones,Urine Negative (Negative); Leukocyte Esterase,Urine Small (Negative); Nitrite,Urine Negative (Negative); Protein,Urine Trace mg/dL (Neg-Trace); Specific Gravity,Urine 1.026 (1.010-1.025); Urobilinogen,Urine Normal (Normal)
[2016-12-14] MEDS ORDERED: 0.9 % Sodium Chloride 1,000 ML IVC ONE (10:34)
[2016-12-14] MEDS ORDERED: *HR* Morphine 2 MG/ML SYRINGE IVP ONE (10:35)
[2016-12-14] MEDS ORDERED: Ondansetron 4 MG/2 ML VIAL IVP ONE ×2 (10:36→17:45)
--- NOTE | 2016-12-14 10:43 | Emergency Department Note ---
Disposition Clinical Impression: Status post laparoscopic cholecystectomy, Intra-abdominal abscess Abdominal pain Qualifiers: Abdominal location: unspecified location Qualified Code(s): R10.9 - Unspecified abdominal pain Disposition: Admitted As Inpatient Condition: Good Time of Disposition: 14:08 Abdominal Pain HPI - General Chief Complaint: ED Abdominal Pain Stated Complaint: Abd Pain Time Seen by Provider: 12/14/16 10:06 Source: patient Mode of arrival: ambulatory Limitations: no limitations Nursing Notes Reviewed: Yes Vital Signs Reviewed: Yes - History of Present Illness HPI Narrative: 21-year-old female presents with abdominal pain. She has a complicated history if 1st initially started with a cholecystectomy performed November 12. She had a bilaterally and needed admission along with a stent placement. Few days after she continue to have some pain and required additional 2 stents. She was admitted in over to expand had a total of 2 stents in 3 draining tubes. On 12/12 her 2 draining tubes were removed. Since then yesterday she began experiencing abdominal pain in the RUQ cramping in nature. Worse with yawning and coughs. Denies any fever, cough, difficulty in breathing, shoulder pain, nausea, vomiting, or changes in bowel. Denies any urinary complaints. Has been taking pain medications as prescribed [place], Bentyl, and Ibuprofen without much relief. Feels similar to her prior bile leak she reports. Denies any trauma. Will give her IV fluids. Morphine for pain. Basic labs ordered. Will consult with surgery for recommended imaging. Pain Scale: 5 - Related Data Home Medications Medication Instructions Recorded Confirmed Citalopram Hydrobromide [Celexa] 40 mg PO HS 11/12/16 12/14/16 Levonorgestrel [Mirena] 52 mg IY AD 11/12/16 12/14/16 HYDROcodone/Acet 10/325 mg [[place] 1 tab PO Q6H PRN 12/14/16 12/14/16 10-325 mg] Previous Rx's Medication Instructions Recorded Dicyclomine [Bentyl] 20 mg PO QID PRN #120 capsule 12/04/16 Ibuprofen [Motrin] 800 mg PO Q8H PRN #50 tablet 12/04/16 Allergies Allergy/AdvReac Type Severity Reaction Status Date / Time No Known Allergies Allergy Verified 12/14/16 09:58 All systems ED: reviewed and negative except as stated. Constitutional: Denies: fever, chills Cardiovascular: Denies: chest pain, dyspnea on exertion Respiratory: Denies: cough, dyspnea Gastrointestinal: Reports: abdominal pain. Denies: nausea, vomiting, diarrhea, melena, hematochezia Genitourinary: Denies: urgency, dysuria Musculoskeletal: Denies: back pain, neck pain Integumentary: Denies: rash, abrasion Neurological: Denies: headache Abdominal Pain PMH - Past Medical History Medical history: Reports: no medical history Female Surgical History: Reports: cholecystectomy Psychiatric history: Reports: anxiety, depression - Social History Smoking status: Never smoker Alcohol use: Reports: none Drug use: Reports: none Physical Exam - General Limitations: no limitations General appearance: alert, in no apparent distress - Head Head exam: atraumatic, normocephalic, normal inspection - Eye Eye exam: Present: normal appearance, PERRL, EOMI. Absent: scleral icterus - ENT ENT exam: normal exam, normal oropharynx, mucous membranes moist - Neck Neck exam: Present: normal inspection, full ROM, trachea midline - Chest Chest inspection: Present: normal inspection, symmetric chest wall rise. Absent : tenderness - Respiratory Respiratory exam: Present: normal lung sounds bilaterally. Absent: respiratory distress, wheezes - Cardiovascular Cardiovascular exam: Present: regular rate, normal rhythm, tachycardia, normal heart sounds - Abdominal Exam Abdominal exam: Present: soft, tenderness, diminished bowel sounds, other (two drainage sites in LLQ and RLQ, some purulent drainage no surrounding erythema or induration, well healing trochanter sites in the umbilicus and epigastrium). Absent: Non-Tender, distention, guarding, rebound, rigidity - Extremities Exam Extremities exam: Present: normal inspection, full ROM, normal capillary refill. Absent: tenderness, pedal edema, calf tenderness - Back Exam Back exam: Present: normal inspection, full ROM. Absent: tenderness, CVA tenderness (R), CVA tenderness (L) - Neurological Exam Neurological exam: Present: alert, oriented X3 - Psychiatric Psychiatric exam: Present: normal affect, normal mood - Skin Skin exam: Present: warm, dry, intact, pallor. Absent: other (jaundiced) Course - Reevaluation(s) Reevaluation #1: Labs appear stable from prior. Hgb is 9. Electrolytes and renal function normal. Liver function normal. Bilirubin is normal. CT of the abdomen and pelvis reveals persistent fluid collections, they however do appear smaller than prior image from a week ago. Spoke with Dr. Valera recommends speaking to the radiologists for indications on further management whether she needs to have these drained. Pain has improved after morphine and dilaudid. Time: 13:48 - Consultations Consultation #1: Spoke to Dr. Valera surgeon on-call recommends CT with oral contrast to evaluate the duodenum in for any possible fluid collections. Time: 11:02 Consultation #2: Spoke to Dr. Langley, radiologist, fluid collections are large but has decreased in size from prior. Smaller collections that before. Could benefit from percutaneous drainage. Time: 14:06 Consultation #3: Spoke to Dr. Valera surgeon on-call, wish to admit to surgical service and to consult interventional radiologist for draining tube placement. Patients in agreement with this plan. Time: 14:06 Vital Signs Temperature 98.0 F 12/14/16 10:01 Pulse Rate 119 12/14/16 10:01 Respiratory Rate 18 12/14/16 10:01 Blood Pressure 127/84 12/14/16 10:01 O2 Sat by Pulse Oximetry 97 12/14/16 10:01 Temperature 98.3 F 12/14/16 15:21 Pulse Rate 101 12/14/16 15:21 Respiratory Rate 16 12/14/16 15:21 Blood Pressure 115/73 12/14/16 15:21 O2 Sat by Pulse Oximetry 97 12/14/16 15:21 Oxygen Delivery Oxygen Delivery Room Air Abdominal Pain - Medical Records Medical records reviewed: Yes I reviewed the patient's medical records. - Lab Data Lab results reviewed: Yes I reviewed the patient's lab results. Result diagrams: 12/14/16 10:40 12/14/16 10:40 Lab Results 12/14/16 12/14/16 12/14/16 Range/Units 10:15 10:15 10:40 WBC 9.4 (4.3-11.1) K/mcL RBC 3.82 (3.82-4.97) M/mcL Hgb 9.0 L (11.5-15.4) g/dL Hct 30.0 L (35.3-44.9) % MCV 78.5 L (83.0-100.0) fL MCH 23.6 L (28.0-33.3) pg MCHC 30.0 L (31.6-35.5) g/dL RDW 14.8 H (11.5-14.5) % Plt Count 420 H (140-400) K/mcL MPV 8.8 L (9.4-12.4) fL Immature Gran % 0.7 (0-4) % Seg Neutrophils % 76.6 % Lymphocytes % 16.5 % Monocytes % 5.0 % Eosinophils % 1.0 % Basophils % 0.2 % Neutrophils # 7.2 (1.6-8.9) K/mcL Lymphocytes # 1.6 (0.6-4.6) K/mcL Monocytes # 0.5 (0.0-1.3) K/mcL Eosinophils # 0.1 (0.0-0.6) K/mcL Basophils # 0.0 (0.0-0.2) K/mcL Sodium (136-145) mEq/L Potassium (3.5-4.5) mEq/L Chloride (98-109) mEq/L Carbon Dioxide (19-29) mEq/L BUN (7-20) mg/dL Creatinine (0.57-1.11) mg/dL Est GFR ( Amer) (> 60) Est GFR (Non-Af Amer) (> 60) BUN/Creatinine Ratio (6-26) Glucose (70-99) mg/dL Calculated Osmolality (280-300) Calcium (8.6-10.8) mg/dL Total Bilirubin (0.2-1.2) mg/dL Direct Bilirubin (0.0-0.5) mg/dL Indirect Bilirubin (0.0-1.2) mg/dL AST (5-34) Units/L ALT (0-55) Units/L Alkaline Phosphatase (38-126) Units/L Serum Total Protein (6.0-8.3) g/dL Albumin (3.5-5.0) g/dL Globulin (2.4-3.5) g/dL Albumin/Globulin Ratio (1.1-2.2) Lipase (8-78) Units/L Urine Color Yellow (Yellow) Urine Clarity Cloudy A (Clear) Urine pH 6.0 (5.0-8.0) pH Units Ur Specific [place] 1.026 H (1.010-1.025) Urine Protein Trace (Neg-Trace) mg/dL Urine Glucose (UA) Normal (Normal) mg/dL Urine Ketones Negative (Negative) mg/dL Urine Blood Trace H (Negative) Urine Nitrite Negative (Negative) Urine Bilirubin Negative (Negative) Urine Urobilinogen Normal (Normal) mg/dL Ur Leukocyte Esterase Small H (Negative) Urine Microscopic RBC 3-5 H (0-3) per hpf Urine Microscopic WBC 3-5 H (0-3) per hpf Ur Squamous Epith Cells Few (None-Few) per lpf Urine Bacteria Few (None-Few) per hpf Ur Culture Indicated? YES A (NO) Urine Test Negative (Negative) 12/14/16 Range/Units 10:40 WBC (4.3-11.1) K/mcL RBC (3.82-4.97) M/mcL Hgb (11.5-15.4) g/dL Hct (35.3-44.9) % MCV (83.0-100.0) fL MCH (28.0-33.3) pg MCHC (31.6-35.5) g/dL RDW (11.5-14.5) % Plt Count (140-400) K/mcL MPV (9.4-12.4) fL Immature Gran % (0-4) % Seg Neutrophils % % Lymphocytes % % Monocytes % % Eosinophils % % Basophils % % Neutrophils # (1.6-8.9) K/mcL Lymphocytes # (0.6-4.6) K/mcL Monocytes # (0.0-1.3) K/mcL Eosinophils # (0.0-0.6) K/mcL Basophils # (0.0-0.2) K/mcL Sodium 142 (136-145) mEq/L Potassium 3.9 (3.5-4.5) mEq/L Chloride 106 (98-109) mEq/L Carbon Dioxide 27 (19-29) mEq/L BUN 9 (7-20) mg/dL Creatinine 0.58 (0.57-1.11) mg/dL Est GFR ( Amer) > 60 (> 60) Est GFR (Non-Af Amer) > 60 (> 60) BUN/Creatinine Ratio 16 (6-26) Glucose 100 H (70-99) mg/dL Calculated Osmolality 293 (280-300) Calcium 9.6 (8.6-10.8) mg/dL Total Bilirubin 0.6 (0.2-1.2) mg/dL Direct Bilirubin 0.3 (0.0-0.5) mg/dL Indirect Bilirubin 0.3 (0.0-1.2) mg/dL AST 12 (5-34) Units/L ALT 11 (0-55) Units/L Alkaline Phosphatase 116 (38-126) Units/L Serum Total Protein 8.0 (6.0-8.3) g/dL Albumin 2.4 L (3.5-5.0) g/dL Globulin 5.6 H (2.4-3.5) g/dL Albumin/Globulin Ratio 0.4 L (1.1-2.2) Lipase 20 (8-78) Units/L Urine Color (Yellow) Urine Clarity (Clear) Urine pH (5.0-8.0) pH Units Ur Specific [place] (1.010-1.025) Urine Protein (Neg-Trace) mg/dL Urine Glucose (UA) (Normal) mg/dL Urine Ketones (Negative) mg/dL Urine Blood (Negative) Urine Nitrite (Negative) Urine Bilirubin (Negative) Urine Urobilinogen (Normal) mg/dL Ur Leukocyte Esterase (Negative) Urine Microscopic RBC (0-3) per hpf Urine Microscopic WBC (0-3) per hpf Ur Squamous Epith Cells (None-Few) per lpf Urine Bacteria (None-Few) per hpf Ur Culture Indicated? (NO) Urine Test (Negative) - Radiology Data Radiology results reviewed: Yes I reviewed the patient's radiology results. Abdomen/Pelvis CT 12/14/16 12:00 IMPRESSION: Removal of percutaneous drainage catheter is from the abdomen pelvis. Overall decrease in size of the multiple communicating collection/abscess is throughout the abdomen and pelvis including the right perihepatic collection neck indicates with a large anterior abdominal peritoneal collection which communicates with the pelvic collection. However, there is persistent fluid in the collection suggesting persistent abscesses. Resolution of the gallbladder fossa collection. Common bile duct stents again demonstrated with persistent pneumobilia. Status post cholecystectomy. D/ / Santos Langley MD / Santos Langley MD Interpreting Provider: Santos Langley MD Attestation Statement - Attestation Attestation: Patient was seen with resident physician. I reviewed the history, physical, assessment and plan, and agree with the findings. I also personally evaluated this patient and had [id number] time with this patient. 21-year-old female presents to the emergency department with continued abdominal pain. 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 Had drains placed last time they did a procedure on her the last 2 drains were removed on she developed pain starting Friday progressively gotten worse similar to her bile leak presentation the past. Comes in today with right upper quadrant midepigastric abdominal discomfort no nausea or vomiting. No diarrhea. Denies fevers or chills. Physical exam, vital signs are stable. ENT is unremarkable. Heart and lungs normal. Abdomen is soft there is tenderness palpation the right upper quadrant without guarding or rigidity. Patient has well-healing surgical wounds on the upper portion the abdomen. She has some mild discharge from the drain sites on the lower portion the abdomen both the left than the right side with the tubes were most recently removed. Extremities are unremarkable. Neurologically the patient is intact. ED course. Labs are drawn we contacted surgery to make sure we are ordering the test that they wanted for greatest evaluation opportunity for the patient's pain. They recommended a CT scan which we suddenly ordered. We will follow back with surgery once the findings are complete. Disposition according to those findings. Also control patient's pain while in the emergency department. CT scan findings showed continuation of fluid collection. At the recommendation of replacing the drainage tubes by the radiologist. This information was conveyed to surgery who agreed to accept patient as an admission for further intervention. Agree with resident physician assessment and plan.
[2016-12-14 10:48] LABS: Basophils % 0.2 %; Eosinophils # 0.1 K/mcL (0.0-0.6); Immature Granulocytes % 0.7 % (0-4); Lymphocytes # 1.6 K/mcL (0.6-4.6); Lymphocytes % 16.5 %; Mean Corpuscular Hemoglobin 23.6 pg (28.0-33.3); Mean Corpuscular Volume 78.5 fL (83.0-100.0); Mean Platelet Volume 8.8 fL (9.4-12.4); Monocytes # 0.5 K/mcL (0.0-1.3); Neutrophils # 7.2 K/mcL (1.6-8.9); Platelet Count 420 K/mcL (140-400); Red Blood Count 3.82 M/mcL (3.82-4.97); Red Cell Distribution Width 14.8 % (11.5-14.5); Segmented Neutrophils % 76.6 %
[2016-12-14 10:49] LABS: Bacteria,Urine Few per hpf (None-Few); Squamous Epithelial Cell,Urine Few per lpf (None-Few)
[2016-12-14 11:02] LABS: Alanine Aminotransferase 11 Units/L (0-55); Albumin 2.4 g/dL (3.5-5.0); Albumin/Globulin Ratio 0.4 (1.1-2.2); Alkaline Phosphatase 116 Units/L (38-126); Aspartate Amino Transferase 12 Units/L (5-34); BUN/Creatinine Ratio 16 (6-26); Bilirubin,Direct 0.3 mg/dL (0.0-0.5); Bilirubin,Indirect 0.3 mg/dL (0.0-1.2); Bilirubin,Total 0.6 mg/dL (0.2-1.2); Blood Urea Nitrogen 9 mg/dL (7-20); Calcium 9.6 mg/dL (8.6-10.8); Carbon Dioxide 27 mEq/L (19-29); Chloride 106 mEq/L (98-109); Globulin 5.6 g/dL (2.4-3.5); Glucose 100 mg/dL (70-99); Lipase 20 Units/L (8-78); Osmolality,Calculated 293 (280-300); Potassium 3.9 mEq/L (3.5-4.5); Sodium 142 mEq/L (136-145); eGFR For African Americans > 60 (> 60); eGFR For Non-African Americans > 60 (> 60)
[2016-12-14] MEDS ORDERED: *HR* HYDROmorphone (PF) 1 MG/ML SYRINGE IVP ONE (11:35)
--- NOTE | 2016-12-14 17:35 | General Surg History&Physical ---
Date of Encounter: 12/14/16 Time of Encounter: 17:31 Assessment and Plan (1) Intra-abdominal abscess Current Visit: Yes Status: Acute The assessment and plan as outlined above was discussed with the patient and/or family members who expressed understanding and agreement. All questions were answered. CT of abdomen and pelvis on 12/14/2016 demonstrates multiple communicating collections/abscess is throughout the abdomen and pelvis including the right perihepatic collection neck indicates with a large anterior abdominal peritoneal collection which communicates with the pelvic collection. However, there is persistent fluid in the collection suggesting persistent abscesses. Admit to 3A IVF @ 125cc/hr IV Antibiotics - Zosyn - Flagyl Pain Control PPI NPO Supportive care Consult to interventional radiology for drainage of abscess - Spoke with IR equipment application specialist and discussed the case/reviewed the CT. - He recommended drainage on Friday as patient is in stable condition without acute abdomen, no leukocytosis and afebrile. - Anterior fluid collection is accessible but the fluid between the uterus and rectum is not. (2) Abdominal pain Current Visit: Yes Status: Acute The assessment and plan as outlined above was discussed with the patient and/or family members who expressed understanding and agreement. All questions were answered. See above. Qualifiers: Abdominal location: periumbilical Qualified Code(s): R10.33 - Periumbilical pain (3) Depression Current Visit: Yes Status: Acute The assessment and plan as outlined above was discussed with the patient and/or family members who expressed understanding and agreement. All questions were answered. Patient states this is well controlled at this time on Celexa. Qualifiers: Depression Type: unspecified Qualified Code(s): F32.9 - Major depressive disorder, single episode, unspecified History of Present Illness Chief complaint: abdominal pain HPI: Ms. Castorena is a very pleasant 21-year-old female with a past medical history of cholelithiasis and anxiety who presents to the [facility] emergency department with a chief complaint of abdominal pain. She reports that on November 12 she underwent a laparoscopic cholecystectomy by Dr. Kim and had a complicated postoperative course. She went on to state that 3 stents were placed during her two-week postoperative course here at again. Patient was eventually discharged with 2 drains and had a follow-up appointment this last , 12/12/2016. Of note, both her drains removed and patient states that her pain was well-controlled at that time. Over the next 2 days she states that her pain progressively increased and is located just inferior to her umbilicus. She states that the pain is constant, ranging from 2-8 out of 10 and nonradiating. Patient reports that nothing improves or takes away the pain. She is currently taking [place], Bentyl and ibuprofen without relief that she received on her discharge. On arrival to the ED, patient is tachycardic at 119, afebrile, hemoglobin of 9 with electrolytes and renal function normal. LFTs and bilirubin are within normal limits. No leukocytosis noted. Patient denies any headaches, chest pain, shortness of breath, changes in her bowel movements, dysuria, hematochezia, melena, joint pain, lower extremity edema. CT of the abdomen and pelvis demonstrate persistent fluid collections throughout the abdomen and pelvis. Patient was given pain control with morphine and Dilaudid along with Zofran and IV fluids. Surgery service was consulted to recommend intervention for the persistent fluid collections throughout the abdomen and pelvis. Patient will be admitted to [facility] with IVF, IV antibiotics, supportive care and interventional radiology consult. Past Med Surg Social Fam HX - Past Medical History Medical history: no medical history Psychiatric history: anxiety, depression - Past Surgical History Surgical History: cholecystectomy - Social History Smoking Status: Never smoker Smokeless Tobacco Status: No Alcohol use: none Drug use: none - Family History Grandfather Living Status: Still Living Hx Family Cardiac Disorders: Yes Hx Family Endocrine Disorder: Yes Mother Name: Judi Henderson Age: 45 Living Status: Still Living Hx Family Cardiac Disorders: No Hx Family Respiratory Disorders: No Hx Family Cancer: No Hx Family GI Disorders: No Hx Family Genitourinary Disorders: No Hx Family Endocrine Disorder: Yes (prediabetes) Hx Family Musculoskeletal Disorders: No Hx Family Neuromuscular Disorders: No Hx Family Neurologic Disorders: No Hx Family HEENT Disorders: No Hx Family Autoimmune Disorders: No Hx Family Reproductive Disorders: No Hx Family Psychosocial Disorders: No Hx Family Medical Disorders: No Father Name: Wili Chapin Age: 48 Living Status: Still Living Hx Family Cardiac Disorders: No Hx Family Respiratory Disorders: No Hx Family Cancer: No Hx Family GI Disorders: No Hx Family Genitourinary Disorders: No Hx Family Endocrine Disorder: Yes (thyroid) Hx Family Musculoskeletal Disorders: No Hx Family Neuromuscular Disorders: No Hx Family Neurologic Disorders: No Hx Family HEENT Disorders: No Hx Family Autoimmune Disorders: No Hx Family Reproductive Disorders: No Hx Family Psychosocial Disorders: No Hx Family Medical Disorders: No Medications and Allergies Citalopram Hydrobromide [Celexa] 40 mg PO HS 11/12/16 [History] Levonorgestrel [Mirena] 52 mg IY AD 11/12/16 [History] Dicyclomine [Bentyl] 20 mg PO QID PRN #120 capsule 12/04/16 [Rx] Ibuprofen [Motrin] 800 mg PO Q8H PRN #50 tablet 12/04/16 [Rx] HYDROcodone/Acet 10/325 mg [[place] 10-325 mg] 1 tab PO Q6H PRN 12/14/16 [History] Allergies No Known Allergies Allergy (Verified 12/14/16 09:58) Review of Systems All systems PM: A 10-system review of systems was performed and is negative for pertinent findings except as documented above in the HPI. - Constitutional as per HPI General Surgery Exam Initial Vital Signs Temp Pulse Resp BP Pulse Ox 98.0 F 119 18 127/84 97 12/14/16 10:01 12/14/16 10:01 12/14/16 10:01 12/14/16 10:01 12/14/16 10:01 - General physical appearance no distress, obese, other (Patient is lying in bed with notable pain present) - Eyes normal ocular movement - ENT normal mucosa - Neck trachea midline - Respiratory normal expansion, normal respiratory effort, clear to auscultation - Cardiovascular Cardiovascular exam: Present: tachycardia, regular rhythm, no murmurs/rubs/ gallops - Abdomen Abdomen general surgery: Present: bowel sounds present, soft, tender (Midline just inferior to the umbilicus) - Integumentary Integumentary general surgery: Present: warm and dry - Neurologic Present: CN 2-12 grossly intact - Psychiatric Psychiatric general surgery: Present: appropriate, oriented to person, oriented to place, oriented to time, speech is normal, memory intact Results - Labs 12/14/16 10:40 12/14/16 10:40 Short CBC 12/14/16 Range/Units 10:40 WBC 9.4 (4.3-11.1) K/mcL Hgb 9.0 L (11.5-15.4) g/dL Hct 30.0 L (35.3-44.9) % Plt Count 420 H (140-400) K/mcL Neutrophils # 7.2 (1.6-8.9) K/mcL BMP 12/14/16 Range/Units 10:40 Sodium 142 (136-145) mEq/L Potassium 3.9 (3.5-4.5) mEq/L Chloride 106 (98-109) mEq/L Carbon Dioxide 27 (19-29) mEq/L BUN 9 (7-20) mg/dL Creatinine 0.58 (0.57-1.11) mg/dL Glucose 100 H (70-99) mg/dL Calcium 9.6 (8.6-10.8) mg/dL Liver Function 12/14/16 Range/Units 10:40 Total Bilirubin 0.6 (0.2-1.2) mg/dL Direct Bilirubin 0.3 (0.0-0.5) mg/dL AST 12 (5-34) Units/L ALT 11 (0-55) Units/L Alkaline Phosphatase 116 (38-126) Units/L Albumin 2.4 L (3.5-5.0) g/dL Urine 12/14/16 Range/Units 10:15 Urine Color Yellow (Yellow) Urine Clarity Cloudy A (Clear) Urine pH 6.0 (5.0-8.0) pH Units Ur Specific [place] 1.026 H (1.010-1.025) Urine Protein Trace (Neg-Trace) mg/dL Urine Glucose (UA) Normal (Normal) mg/dL Vital Signs Temp Pulse Resp BP Pulse Ox 12/14/16 15:21 98.3 F 101 16 115/73 97 12/14/16 14:36 16 122/74 12/14/16 14:32 105 16 122/74 98 12/14/16 13:55 106 18 123/85 98 12/14/16 12:30 104 18 132/87 98 12/14/16 11:31 92 16 124/85 98 12/14/16 11:03 93 16 116/87 97 12/14/16 10:01 98.0 F 119 18 127/84 97 Intake and Output 12/14/16 12/14/16 12/14/16 07:59 15:59 23:59 Intake Total 1000 / 1000 Output Total 0 / 0 Balance 1000 / 1000 Intake: IV Fluids 1000 / 1000 0.9 % Sodium Chloride 1, 1000 / 1000 000 ML @ 3750 mls/hr IVC .Q16M ONE Rx#:[id number] Output: Urine 0 / 0 Other: # Bowel Movements 0 Weight 91 kg Blood Glucose* 84 Patient Weight 12/14/16 23:59 Weight 91 kg
[2016-12-14] MEDS ORDERED: Piperacillin/Tazobactam 3.375 GM in D5% in Water (Mini-Bag+) 100 ML IVPB ONE (17:45)
[2016-12-14] MEDS ORDERED: MetroNIDAZOLE 500 MG/100 ML 500 MG/100 ML BAG IVPB ONE (17:45)
[2016-12-14] MEDS ORDERED: Pantoprazole 40 MG VIAL IVP ONE (17:45)
[2016-12-14] MEDS ORDERED: *HR* HYDROmorphone (PF) 1 MG/ML SYRINGE IVP PRN (17:45)
[2016-12-14] MEDS ORDERED: 0.9 % Sodium Chloride 1,000 ML IVC SCH (18:00)
[2016-12-14] MEDS: Piperacillin/Tazobactam 3.375 GM in D5% in Water (Mini-Bag+) 100 ML IVPB SCH (18:16)
[2016-12-14] MEDS: 0.9 % Sodium Chloride 1,000 ML IVC SCH (19:00)
[2016-12-14] MEDS: Ondansetron 4 MG/2 ML VIAL IVP PRN (21:22)
[2016-12-14] MEDS: *HR* HYDROmorphone (PF) 1 MG/ML SYRINGE IVP PRN (21:49)
[2016-12-15] MEDS: Piperacillin/Tazobactam 3.375 GM in D5% in Water (Mini-Bag+) 100 ML IVPB SCH ×3 (00:54→15:00)
[2016-12-15] MEDS: *HR* HYDROmorphone (PF) 1 MG/ML SYRINGE IVP PRN ×3 (04:45→11:34)
[2016-12-15] MEDS: 0.9 % Sodium Chloride 1,000 ML IVC SCH ×2 (04:59→14:59)
[2016-12-15] MEDS: *HR* Heparin 5,000 UNIT/ML VIAL SQ SCH ×2 (04:59→18:04)
[2016-12-15 05:09] LABS: Basophils % 0.3 %; Immature Granulocytes % 1.1 % (0-4)
[2016-12-15 05:11] LABS: Eosinophils # 0.1 K/mcL (0.0-0.6); Eosinophils % 1.1 %; Hematocrit 28.6 % (35.3-44.9); Hemoglobin 8.7 g/dL (11.5-15.4); Lymphocytes # 1.4 K/mcL (0.6-4.6); Lymphocytes % 18.9 %; Mean Corpuscular HGB Conc 30.4 g/dL (31.6-35.5); Mean Corpuscular Hemoglobin 24.2 pg (28.0-33.3); Mean Corpuscular Volume 79.4 fL (83.0-100.0); Mean Platelet Volume 9.5 fL (9.4-12.4); Monocytes # 0.5 K/mcL (0.0-1.3); Platelet Count 373 K/mcL (140-400); Segmented Neutrophils % 71.6 %
[2016-12-15 05:23] LABS: Neutrophils # 5.4 K/mcL (1.6-8.9)
[2016-12-15 05:27] LABS: BUN/Creatinine Ratio 10 (6-26); Blood Urea Nitrogen 6 mg/dL (7-20); Calcium 8.7 mg/dL (8.6-10.8); Carbon Dioxide 28 mEq/L (19-29); Chloride 107 mEq/L (98-109); Glucose 94 mg/dL (70-99); Osmolality,Calculated 289 (280-300); Potassium 3.5 mEq/L (3.5-4.5); Sodium 141 mEq/L (136-145); eGFR For African Americans > 60 (> 60); eGFR For Non-African Americans > 60 (> 60)
[2016-12-15 05:49] LABS: Platelet Estimate Normal (Normal); Polychromasia 1+ (Not Present)
[2016-12-15] MEDS ORDERED: Pantoprazole 40 MG VIAL IVP SCH (09:00)
[2016-12-15] MEDS: Ondansetron 4 MG/2 ML VIAL IVP PRN (11:34)
[2016-12-15 11:55] LABS: % Iron Saturation 8 % (15-50); Iron 16 mcg/dL (50-170); Transferrin 136 mg/dL (180-382)
--- NOTE | 2016-12-15 13:05 | Discharge Summary ---
Date of Encounter: 12/15/16 Time of Encounter: 13:00 - Discharge Diagnosis (1) Intra-abdominal abscess Priority: Primary Status: Acute Comments: CT of abdomen and pelvis on 12/14/2016 demonstrates multiple communicating collections/abscess is throughout the abdomen. Pain is significantly improved since yesterday. No TTP to abdomen vs yesterday where patient was jumping off the bed when palpating just inferior to the umbilicus. No leukocytosis Vital signs stable Patient is ambulating and conducting ADLs without any concern (2) Abdominal pain Priority: Secondary Status: Acute Qualifiers: Abdominal location: periumbilical Qualified Code(s): R10.33 - Periumbilical pain (3) Depression Priority: Secondary Status: Acute Qualifiers: Depression Type: unspecified Qualified Code(s): F32.9 - Major depressive disorder, single episode, unspecified - Discharge Medications Home Medications: Citalopram Hydrobromide [Celexa] 40 mg PO HS 11/12/16 [History] Levonorgestrel [Mirena] 52 mg IY AD 11/12/16 [History] Dicyclomine [Bentyl] 20 mg PO QID PRN #120 capsule 12/04/16 [Rx] Ibuprofen [Motrin] 800 mg PO Q8H PRN #50 tablet 12/04/16 [Rx] HYDROcodone/Acet 10/325 mg [[place] 10-325 mg] 1 tab PO Q6H PRN 12/14/16 [History] Allergies/Adverse Reactions: Allergies No Known Allergies Allergy (Verified 12/14/16 09:58) General Surgery Exam Initial Vital Signs Temp Pulse Resp BP Pulse Ox 98.0 F 119 18 127/84 97 12/14/16 10:01 12/14/16 10:01 12/14/16 10:01 12/14/16 10:01 12/14/16 10:01 - General physical appearance no distress, obese - Eyes normal ocular movement - ENT normal mucosa - Neck trachea midline - Respiratory normal expansion, normal respiratory effort, clear to auscultation - Cardiovascular Cardiovascular exam: Present: RRR, no murmurs/rubs/gallops - Abdomen Abdomen general surgery: Present: bowel sounds present, soft, non tender - Integumentary Integumentary general surgery: Present: warm and dry - Neurologic Present: CN 2-12 grossly intact - Musculoskeletal Present: normal gait - Psychiatric Psychiatric general surgery: Present: appropriate, oriented to person, oriented to place, oriented to time, speech is normal, memory intact Date of admission: 12/14/16 17:45 Primary care physician: ROSANA Herrera Consults: 12/14/16 19:02 Consult to Interventional Radiology [CONS] Routine Consulting Provider: Radiology Interventional Cols Reason for Consult: abdominal abscess Call Completed: Yes Discharging clinician: Jalen Valera Anticipated date of discharge: 12/15/16 - Patient Status Disposition: Home, Self-Care Condition: Good - Discharge Instructions Instructions: Acute Abdominal Pain (DC) Follow Up With: Tanya Oliver CNP [Primary Care Provider] - Derek Kim MD [Partnered Physician] - Additional Instructions: Take all medications as prescribed He may continue to use her existing [place] for pain. When taking opioid medication, do not drive or operate a vehicle for at least 24 hours after. A home medication list has been provided for you Please keep a copy of this with you at all times Follow-up with Dr. Kim with the [facility] Call first thing Friday to set up your appointment Return to the emergency room or your PCP if you start to experience nausea, vomiting, fevers, chest pain, shortness of breath or your abdominal pain worsens or shows no improvement. - Diet and Activity Diet: advance to your usual diet - Hospital Course Hospital course: Ms. Castorena is a 21 year old female female with a past medical history of cholelithiasis and anxiety who presented to the [facility] department with a chief complaint of abdominal pain on 12/15/2016. Patient reported that on November 12 she underwent a laparoscopic cholecystectomy by Dr. Kim and had a complicated postoperative course to include a 2 week stay and 3 stents placed. Prior to her admission, the prior she was seen in the clinic for a routine follow-up where both her drains were removed. On arrival to the ED, she states that her pain has been progressively increased and is located just inferior to her umbilicus. Patient was tachycardic at 119, afebrile, hemoglobin of 9, and normal renal function. No leukocytosis was noted. CT of the abdomen and pelvis demonstrated persistent fluid collections throughout the abdomen and pelvis. She was given pain control with morphine and Dilaudid and was subsequently admitted overnight. She was started on IV antibiotics, IV fluids, supportive care and pain control. Interventional radiology was consulted and based on the patient's current condition, they recommended a outpatient follow-up if needed for drainage. The following morning Ms. Castorena reports a pain of 1 out of 10 and is not tender to to palpation on exam. Repeat a.m. labs demonstrated no leukocytosis, afebrile and normal renal function. Vital signs are stable and patient was discharged home on 12/15/2016 with a follow-up with Dr. Kim. - Time Spent with Patient Total time spent providing and/or coordinating discharge services: Labs on day of discharge: Short CBC 12/15/16 Range/Units 04:25 WBC 7.5 (4.3-11.1) K/mcL Hgb 8.7 L (11.5-15.4) g/dL Hct 28.6 L (35.3-44.9) % Plt Count 373 (140-400) K/mcL Neutrophils # 5.4 (1.6-8.9) K/mcL BMP 12/15/16 Range/Units 04:25 Sodium 141 (136-145) mEq/L Potassium 3.5 (3.5-4.5) mEq/L Chloride 107 (98-109) mEq/L Carbon Dioxide 28 (19-29) mEq/L BUN 6 L (7-20) mg/dL Creatinine 0.62 (0.57-1.11) mg/dL Glucose 94 (70-99) mg/dL Calcium 8.7 (8.6-10.8) mg/dL Vital Signs Temp Pulse Resp BP Pulse Ox 12/15/16 10:32 99.2 F 98 16 126/75 97 12/15/16 05:30 98.8 F 98 16 110/74 95 12/14/16 23:44 98.7 F 100 16 111/69 96 12/14/16 20:44 99.1 F 112 16 136/75 97 12/14/16 15:21 98.3 F 101 16 115/73 97 12/14/16 14:36 16 122/74 12/14/16 14:32 105 16 122/74 98 12/14/16 13:55 106 18 123/85 98 Intake and Output 12/14/16 12/15/16 12/15/16 23:59 07:59 15:59 Intake Total 100 / 100 1100 / 1100 100 / 100 Output Total 625 / 625 300 / 300 150 / 150 Balance -525 / -525 800 / 800 -50 / -50 Intake: IV Fluids 100 / 100 1100 / 1100 100 / 100 0.9 % Sodium Chloride 1, 1000 / 1000 000 ML @ 75 mls/hr IVC . [id number] [facility]ERLYN Rx#: [id number] Zosyn 3.375 GM In 100 / 100 100 / 100 100 / 100 Dextrose 5% (Minibag+) 100 ML 100 ML @ 25 mls/hr IVPB Q8HR SHERLYN Rx#: [id number] Oral 0 / 0 0 / 0 Output: Urine 400 / 400 300 / 300 150 / 150 Emesis 225 / 225 Other: # Bowel Movements 0 0 Weight 91.2 kg Blood Glucose* 104 104 92 Patient Weight 12/15/16 23:59 Weight 91.2 kg
[2016-12-15] MEDS ORDERED: *HR* HYDROcodone/Acet 10/325 mg TABLET PO ONE (14:45)
[2016-12-15 19:15] VITALS: BP 114/75
== END 2016-12-15 20:25 | disposition home or self-care (01) | DRG 373 ==
LOC: EMEROO 09:56 → 3ANU 09:56
PROVIDERS: ADMIT Surgery; ATTEND Surgery